=== PATIENT | female | born 1985 | race Caucasian/White ===

== ENCOUNTER 2018-02-22 18:46 | Emergency (ER) | payer MEDICAID ==
--- NOTE | 2018-02-22 18:43 | ER Report ---
History and Physical Time Seen By : 18:43 HPI/ROS CHIEF COMPLAINT: Altered mental status HISTORY OF PRESENT ILLNESS: 32-year-old female on chronic pain treatment with hydrocodone 10 mg tablets. She's taken 7 tablets today. Someone called for a welfare check. Patient was found to be hypoxic with a saturation of 50% and mildly altered mental status. On arrival here to the emergency room. She is alert and oriented 3. She voices no complaints. Her saturations are borderline on room air. REVIEW OF SYSTEMS: Respiratory: No cough, no dyspnea. Cardiovascular: No chest pain, no palpitations. Gastrointestinal: No vomiting, no abdominal pain. Musculoskeletal: No back pain. Allergies: Coded Allergies: tramadol (Verified Allergy, Unknown, 10/03/17) Uncoded Allergies: HAYFEVER CATS (Allergy, Mild, SINUS CONGESTION, 04/17/08) Home Meds Active Scripts Lorazepam (ATIVAN) 1 Mg Tablet, 1 MG PO Q4-6H Y for ANXIETY, #10 TAB 0 Refills Prov:HERRERA CASTANEDA MD 10/03/17 Sucralfate (CARAFATE) 1 Gm/10 Ml Oral.susp, 1 GM PO QID for 14 Days, #1 BOTTLE 0 Refills Prov:HERRERA CASTANEDA MD 10/03/17 Pantoprazole Sodium (PANTOPRAZOLE SODIUM) 40 Mg Tablet.dr, 40 MG PO BID, #60 TAB.SR 0 Refills Prov:HERRERA CASTANEDA MD 10/03/17 Promethazine Hcl (PROMETHAZINE HCL) 25 Mg Tablet, 25 MG PO Q8H Y for NAUSEA/ VOMITING, #20 TAB 0 Refills Prov:HERRERA CASTANEDA MD 10/03/17 Hydrocodone Bit/Acetaminophen (HYDROCODON-ACETAMINOPHEN 5-325) 1 Each Tablet, 1 EACH PO Q4H Y for PAIN, #15 TAB 0 Refills Prov:HERRERA CASTANEDA MD 10/03/17 Ondansetron (ZOFRAN ODT) 4 Mg Tab.rapdis, 4 MG PO TID Y for NAUSEA, #20 TAB 0 Refills TAKE 1 TABLET BY MOUTH EVERY 12 HOURS Prov:HERRERA CASTANEDA MD 12/12/13 Reported Medications Gabapentin (GABAPENTIN) 300 Mg Capsule, 300 MG PO TID, CAPSULE 10/03/17 Paroxetine Hcl (PAXIL) 20 Mg Tablet, 20 MG PO QDAY, TAB 10/03/17 Quetiapine Fumarate (SEROQUEL) 25 Mg Tablet, 25 MG PO 10/03/17 Reviewed Nurses Notes: Yes Old Medical Records Reviewed: Yes Hx Smoking: No Hx Substance Use Disorder: No Hx Alcohol Use: No Constitutional Vital Sign - Last 24 Hours 02/22/18 02/22/18 18:44 19:24 Temp 97.9 Pulse 132 88 Resp 20 18 B/P (MAP) 126/74 126/74 (91) Pulse Ox 100 94 O2 Delivery Nasal Cannula Room Air Physical Exam General Appearance: The patient is alert, has no immediate need for airway protection and no current signs of toxicity. Somnolent but alert and oriented 3, pulse ox 88-90% on room air HEENT: Pupils equal and round no injection. Oropharynx with dry mucous membranes Respiratory: Chest is non tender, lungs are clear to auscultation. Cardiac: regular rate and rhythm Gastrointestinal: Abdomen is soft and non tender, no masses, bowel sounds normal. Musculoskeletal: Neck: Neck is supple and non tender. Extremities have full range of motion and are non tender. Skin: No rashes or lesions. DIFFERENTIAL DIAGNOSIS: After history and physical exam differential diagnosis was considered for altered mental status including but not limited to hypoglycemia, infectious process, electrolyte abnormality, head injury, opiate pain medication abuse and intoxicants. Medical Decision Making ED Course/Re-evaluation ED Course Patient was admitted to an examination room. H&P was done. The differential diagnosis was considered. On clinical examination. Patient alert and oriented 3. She is somnolent. I suspect she is taking too many of her hydrocodone 10 mg tablets. Someone call for well for check. EMS noted that she was mildly hypoxic and brought her in for evaluation. She admits to using her 10 mg hydrocodone pain pills prescribed by her pain specialist in [place] nurse practitioner in excess of what she is prescribed. She is advised to cut her medication use by half. She is observed here in the emergency department for 60 minutes remained stable. She is advised to contact her pain specialist tomorrow Decision to Disposition Date: Feb 22, 2018 Decision to Disposition Time: 19:18 Depart Departure Latest Vital Signs Vital Signs Date Time Temp Pulse Resp B/P (MAP) Pulse Ox O2 Delivery O2 Flow Rate FiO2 02/22/18 19:24 88 18 126/74 (91) 94 Room Air 02/22/18 18:44 97.9 Impression: Primary Impression: Accidental overdose Additional Impression: Chronic pain syndrome Condition: Improved Disposition: HOME OR SELF-CARE Patient Instructions: Chronic Pain (ED) Additional Instructions: Contact your chronic pain specialist tomorrow morning Reduce your medication use by half Problem Qualifiers Primary Impression: Accidental overdose Encounter type: initial encounter Qualified Codes: T50.901A - Poisoning by unspecified drugs, medicaments and biological substances, accidental ( unintentional), initial encounter BIPIN ARITA DO Feb 22, 2018 18:43
[~2018-02-22 18:46] MED LIST changes: -ALB6.7R INH; -ALPR-429 PO; -ALPR-434 PO; -CIPR-214 PO; -DEXT5TAB PO; -DOXE25CA45 PO; -OXYC-870 PO; -PAROX40PT PO; -PRAZ1CAP26 PO; -QUET100T29 PO; -VENL150C61 PO; -VILA10TA PO
[2018-02-22 19:24] VITALS: BP 126/74
== END 2018-02-22 19:25 | disposition home or self-care (01) ==
LOC: ER 18:54
DX: T50.901A Poisoning by unspecified drugs, medicaments and biological substances, accidental (unintentional), initial encounter (principal); G89.4 Chronic pain syndrome
CPT/HCPCS: 99283

== ENCOUNTER → 2018-02-22 | Outpatient (CLI) | payer MEDICAID ==
[~2018-02-22] MED LIST: ALB6.7R INH; ALPR-429 PO; ALPR-434 PO; AZIT500T47 PO; BENZ-23 PO; CELE-1 PO; CEP500 PO; CIPR-214 PO; CIPR-344 PO; CYC10 PO; DAR100 PO; DEXT5TAB PO; DIA10 PO; DOCU50CA8 PO; DOXE25CA45 PO; ENO100I SC; ENOX80DI8 SQ; FAMO-1 PO; FERR325C2 PO; GABA-549 PO; HYD2 PO; HYDR2TAB42 PO; HYDR2TAB74 PO; IBU600 PO; IBU800 PO; KET10 PO; LEVO250T37 PO; LOR10/325 PO; LOR5 PO; LOR5/325 PO; LORA-1456 PO; MECL25TA27 PO; MED150I IM; MEP50 PO; MEPE50TA29 PO; NIA500 PO; NO ROUTINE MEDS; NO RTN MEDS; ONDA4TAB PO; OXYC-870 PO; PANT40TA65 PO; PARO-243 PO; PAROX40PT PO; PER PO; PHENA200 PO; PHENYLEPHRINE PO; PRAZ1CAP26 PO; PRED20TA6 PO; PRO25 PO; PROM-110 PO; PROMETHAZINE PO; QUET100T29 PO; QUET25TA30 PO; SCOT TD; SUCR1ORA17 PO; TOLT4CAP13 PO; VENL150C61 PO; VILA10TA PO; WAR5 PO
== END ==
LOC: AMB 18:20
PROVIDERS: ATTEND Nurse Practitioner
DX: R41.82 Altered mental status, unspecified (principal); F11.129 Opioid abuse with intoxication, unspecified
CPT/HCPCS: A0425; A0429

== ENCOUNTER 2018-02-23 19:30 | Inpatient (IN) | payer MEDICAID ==
[~2018-02-23] VITALS: Ht 157.5 cm; Wt 61.5 kg
[~2018-02-23 19:30] MED LIST changes: -ALB6.7R INH; -ALPR-429 PO; -ALPR-434 PO; -CIPR-214 PO; -DEXT5TAB PO; -DOXE25CA45 PO; -OXYC-870 PO; -PAROX40PT PO; -PRAZ1CAP26 PO; -QUET100T29 PO; -VENL150C61 PO; -VILA10TA PO
--- NOTE | 2018-02-23 19:38 | ER Report ---
History and Physical Time Seen By : 19:37 HPI/ROS CHIEF COMPLAINT: Found unresponsive, opiate overdose HISTORY OF PRESENT ILLNESS: 32-year-old female brought in by EMS from home found unresponsive with hydrocodone 10 mg tablets in her mouth partially dissolved by family members who called 911 She was given formula grams of Narcan and immediately woke up and began to respond appropriately. Patient was seen in the ER yesterday for hypoxia and altered mental status from taking 810 mg hydrocodone's mcc through the day. She was observed yesterday for an hour in the emergency department with stable vital signs, was alert. She was advised to cut her medication use by half and contact her pain specialist today. Today, her father called for well for check and she was found unresponsive. Patient was placed on emergency longterm by law enforcement for potential attempted suicide, overdose gesture. Patient's review of [place] prescription monitoring website shows patient received oxycodone 08/15/2025 #60 tablets on 02/08/18 Tamara Roy lavern and then again 60 tablets of oxycodone prescribed by LILLY Sanders pain consult minutes of [facility] in [place], [place]. REVIEW OF SYSTEMS: Respiratory: No cough, no dyspnea. Cardiovascular: No chest pain, no palpitations. Gastrointestinal: No vomiting, no abdominal pain. Musculoskeletal: No back pain. Allergies: Coded Allergies: tramadol (Verified Allergy, Unknown, 02/23/18) Uncoded Allergies: HAYFEVER CATS (Allergy, Mild, SINUS CONGESTION, 04/17/08) Home Meds Active Scripts Sucralfate (CARAFATE) 1 Gm/10 Ml Oral.susp, 1 GM PO QID for 14 Days, #1 BOTTLE 0 Refills Prov:HERRERA CASTANEDA MD 10/03/17 Pantoprazole Sodium (PANTOPRAZOLE SODIUM) 40 Mg Tablet.dr, 40 MG PO BID, #60 TAB.SR 0 Refills Prov:HERRERA CASTANEDA MD 10/03/17 Promethazine Hcl (PROMETHAZINE HCL) 25 Mg Tablet, 25 MG PO Q8H Y for NAUSEA/ VOMITING, #20 TAB 0 Refills Prov:HERRERA CASTANEDA MD 10/03/17 Reported Medications Albuterol Sulfate (PROVENTIL HFA) 6.7 Gm Inh, 1-2 PUFF INH 3-4XD Y for shortness of breath, INH 02/24/18 Paroxetine Hcl (PAXIL) 40 Mg Tablet, 40 MG PO QHS 02/24/18 Doxepin Hcl (DOXEPIN HCL) 25 Mg Capsule, 25 MG PO QHS, CAPSULE 02/24/18 Vilazodone Hydrochloride (VIIBRYD) 10 Mg Tablet, 10 MG PO QAM 02/24/18 Oxycodone Hcl/Acetaminophen (PERCOCET 10-325 MG TABLET) 1 Each Tablet, 0.5 EACH PO QID, TAB 02/24/18 Gabapentin (GABAPENTIN) 300 Mg Capsule, 300 MG PO TID, CAPSULE 10/03/17 Discontinued Reported Medications Alprazolam (XANAX) 1 Mg Tablet, 1 TAB PO BID, TAB 02/24/18 Paroxetine Hcl (PAXIL) 20 Mg Tablet, 40 MG PO QDAY, TAB 02/24/18 Prazosin Hcl (PRAZOSIN HCL) 1 Mg Capsule, 1 MG PO QHS, CAPSULE 02/24/18 Alprazolam (XANAX) 0.5 Mg Tablet, 2 TAB PO BID, TAB 02/24/18 Amphet Asp/Amphet/D-Amphet (AMPHETAMINE SALTS 5 MG TAB) 5 Mg Tablet, 5 MG PO BID 02/24/18 Quetiapine Fumarate (SEROQUEL) 100 Mg Tablet, 200 MG PO QHS 02/24/18 Paroxetine Hcl (PAXIL) 20 Mg Tablet, 20 MG PO QDAY, TAB 10/03/17 Quetiapine Fumarate (SEROQUEL) 25 Mg Tablet, 25 MG PO 10/03/17 Discontinued Scripts Lorazepam (ATIVAN) 1 Mg Tablet, 1 MG PO Q4-6H Y for ANXIETY, #10 TAB 0 Refills Prov:HERRERA CASTANEDA MD 10/03/17 Hydrocodone Bit/Acetaminophen (HYDROCODON-ACETAMINOPHEN 5-325) 1 Each Tablet, 1 EACH PO Q4H Y for PAIN, #15 TAB 0 Refills Prov:HERRERA CASTANEDA MD 10/03/17 Ondansetron (ZOFRAN ODT) 4 Mg Tab.rapdis, 4 MG PO TID Y for NAUSEA, #20 TAB 0 Refills TAKE 1 TABLET BY MOUTH EVERY 12 HOURS Prov:HERRERA CASTANEDA MD 12/12/13 Past Medical/Surgical History History of gastric bypass, cholecystectomy, appendectomy, enterectomy for small bowel obstruction, pulmonary embolism. 2011 with pulmonary infarction Reviewed Nurses Notes: Yes Old Medical Records Reviewed: Yes Hx Smoking: No Hx Substance Use Disorder: No Hx Alcohol Use: No Constitutional Vital Sign - Last 24 Hours 02/23/18 02/23/18 02/23/18 02/23/18 19:36 19:45 19:49 20:00 Temp 97.9 Pulse 130 113 109 Resp 12 B/P (MAP) 129/90 124/91 (102) 123/73 (90) Pulse Ox 98 97 97 02/23/18 02/23/18 02/23/18 02/23/18 20:30 21:00 21:15 21:20 Pulse 95 114 112 110 Pulse Ox 97 94 93 96 Physical Exam Vital signs stable, afebrile, pulse ox normal. After Narcan 4 mg IV General Appearance: The patient is alert, has no immediate need for airway protection and no current signs of toxicity. Eyes: Pupils equal and round no injection. Respiratory: Chest is non tender, lungs are clear to auscultation. Cardiac: regular rate and rhythm Gastrointestinal: Abdomen is soft and non tender, no masses, bowel sounds normal. Musculoskeletal: Neck: Neck is supple and non tender. Extremities have full range of motion and are non tender. Skin: No rashes or lesions. Neuro:Alert and oriented 3, cranial 2 through 12 intact motor 5/5 all groups DIFFERENTIAL DIAGNOSIS: After history and physical exam differential diagnosis was considered for depression including functional and major depression, situational depression, medication side effect, drugs and alcohol abuse. Medical Decision Making Data Points Result Diagram: 02/24/18 0509 02/24/18 0509 Laboratory Hematology Test 02/23/18 19:27 02/23/18 20:17 Magnesium Level 1.9 mg/dl (1.7-2.2) Salicylates Level < 10 mg/L Salicylate Last Dose Date unk Serum Alcohol < 10 mg/dl Urine Color Yellow Urine Clarity Cloudy Urine pH 5.0 pH (4.8-9.5) Urine Specific Bennett 1.025 Urine Protein Negative mg/dL (NEGATIVE) Urine Glucose (UA) Negative mg/dL (NEGATIVE) Urine Ketones Trace mg/dL (NEGATIVE) Urine Blood Negative (NEGATIVE) Urine Nitrite Negative (NEGATIVE) Urine Bilirubin Negative (NEGATIVE) Urine Urobilinogen Negative mg/dL (0.2-1.9) Urine Leukocyte Esterase Moderate (NEGATIVE) Urine RBC 5 /HPF (0-2/HPF) Urine WBC 35 /HPF (0-5/HPF) Urine Squamous Epithelial Cells Many /LPF (</=FEW) Urine Transitional Epithelial Cells Moderate /LPF (NONE-FEW) Urine Renal Epithelial Cells Few /LPF (NONE-FEW) Urine Bacteria Few /HPF (NONE-FEW) Urine Mucus Few /HPF (NONE-FEW) Urine HCG, Qualitative Negative (NEGATIVE) Urine Opiates Screen Positive Urine Barbiturates Screen Negative Ur Tricyclic Antidepressants Screen Positive Urine Phencyclidine Screen Negative Urine Amphetamines Screen Negative Urine Benzodiazepines Screen Negative Urine Cocaine Screen Negative Urine Cannabinoids Screen Negative Chemistry Test 02/23/18 19:27 02/23/18 20:17 Magnesium Level 1.9 mg/dl (1.7-2.2) Salicylates Level < 10 mg/L Salicylate Last Dose Date unk Serum Alcohol < 10 mg/dl Urine Color Yellow Urine Clarity Cloudy Urine pH 5.0 pH (4.8-9.5) Urine Specific Bennett 1.025 Urine Protein Negative mg/dL (NEGATIVE) Urine Glucose (UA) Negative mg/dL (NEGATIVE) Urine Ketones Trace mg/dL (NEGATIVE) Urine Blood Negative (NEGATIVE) Urine Nitrite Negative (NEGATIVE) Urine Bilirubin Negative (NEGATIVE) Urine Urobilinogen Negative mg/dL (0.2-1.9) Urine Leukocyte Esterase Moderate (NEGATIVE) Urine RBC 5 /HPF (0-2/HPF) Urine WBC 35 /HPF (0-5/HPF) Urine Squamous Epithelial Cells Many /LPF (</=FEW) Urine Transitional Epithelial Cells Moderate /LPF (NONE-FEW) Urine Renal Epithelial Cells Few /LPF (NONE-FEW) Urine Bacteria Few /HPF (NONE-FEW) Urine Mucus Few /HPF (NONE-FEW) Urine HCG, Qualitative Negative (NEGATIVE) Urine Opiates Screen Positive Urine Barbiturates Screen Negative Ur Tricyclic Antidepressants Screen Positive Urine Phencyclidine Screen Negative Urine Amphetamines Screen Negative Urine Benzodiazepines Screen Negative Urine Cocaine Screen Negative Urine Cannabinoids Screen Negative Toxicology Test 02/23/18 19:27 02/23/18 20:17 Salicylates Level < 10 mg/L Salicylate Last Dose Date unk Serum Alcohol < 10 mg/dl Urine Opiates Screen Positive Urine Barbiturates Screen Negative Ur Tricyclic Antidepressants Screen Positive Urine Phencyclidine Screen Negative Urine Amphetamines Screen Negative Urine Benzodiazepines Screen Negative Urine Cocaine Screen Negative Urine Cannabinoids Screen Negative Urinalysis Test 02/23/18 20:17 Urine Color Yellow Urine Clarity Cloudy Urine pH 5.0 pH (4.8-9.5) Urine Specific Bennett 1.025 Urine Protein Negative mg/dL (NEGATIVE) Urine Glucose (UA) Negative mg/dL (NEGATIVE) Urine Ketones Trace mg/dL (NEGATIVE) Urine Blood Negative (NEGATIVE) Urine Nitrite Negative (NEGATIVE) Urine Bilirubin Negative (NEGATIVE) Urine Urobilinogen Negative mg/dL (0.2-1.9) Urine Leukocyte Esterase Moderate (NEGATIVE) Urine RBC 5 /HPF (0-2/HPF) Urine WBC 35 /HPF (0-5/HPF) Urine Squamous Epithelial Cells Many /LPF (</=FEW) Urine Transitional Epithelial Cells Moderate /LPF (NONE-FEW) Urine Renal Epithelial Cells Few /LPF (NONE-FEW) Urine Bacteria Few /HPF (NONE-FEW) Urine Mucus Few /HPF (NONE-FEW) Urine HCG, Qualitative Negative (NEGATIVE) EKG/Imaging EKG Interpretation 12 lead EK Rhythm: Sinus tachycardia [address] [place]: normal QRS: normal ST segments: normal ED Course/Re-evaluation Clinical Indication for ER IV: Hydration, IV Access ED Course Patient was admitted to an examination room. H&P was done. The differential diagnoses was considered. Patient found unresponsive with undissolved pills in her mouth which were swept out by police sergeant. As arrived on scene and administered Narcan 4 mg IV with prompt improvement of her mental status. Patient was alert and oriented. On arrival to the ER. Shortly thereafter, her mental status began to deteriorate. She required 2 more milligrams of Narcan IV to improve her mental status. Diagnostic studies were sent off. Tox screen is positive for opiates and tricyclics. 02/23/2018 9:02:14 pm case discussed with Dr. Pete Swann for admission to the hospital for continued monitoring of her deteriorating mental status. Opiate overdose requiring repeated Narcan to keep awake Decision to Disposition Date: Feb 23, 2018 Decision to Disposition Time: 21:02 Critical Care Time I spent a total of 45 minutes of critical care time in obtaining history, performing a physical exam, bedside monitoring of interventions, collecting and interpreting tests and discussion with consultants but not including time spent performing procedures. Depart Departure Latest Vital Signs Vital Signs Date Time Temp Pulse Resp B/P (MAP) Pulse Ox O2 Delivery O2 Flow Rate FiO2 02/23/18 21:20 110 96 02/23/18 20:00 123/73 (90) 02/23/18 19:36 97.9 12 Impression: Primary Impression: Accidental overdose Additional Impressions: Opiate dependence History of gastric bypass Condition: Improved Disposition: Admitted from ER Problem Qualifiers Primary Impression: Accidental overdose Encounter type: initial encounter Qualified Codes: T50.901A - Poisoning by unspecified drugs, medicaments and biological substances, accidental ( unintentional), initial encounter Additional Impressions: Opiate dependence Substance use status: uncomplicated Qualified Codes: F11.20 - Opioid dependence, uncomplicated BIPIN ARITA DO Feb 23, 2018 19:38
[2018-02-23] MEDS ORDERED: NS(*) 0.9% 1000 ML BAG 1,000 ML IV ONE (19:44)
[2018-02-23 19:50] LABS: PLATELET COUNT, AUTOMATED 391 K/uL (150-450)
[2018-02-23] MEDS ORDERED: EMS NS 0.9%(*) 1000 ML BAG 1,000 ML IV ONE (19:50)
[2018-02-23] MEDS ORDERED: NALOXONE HCL 2 MG/2 ML SYR IVP ONE (20:35)
[2018-02-23] MEDS ORDERED: NAPROXEN 500 MG TAB PO PRN (22:40)
[2018-02-23] MEDS ORDERED: NALOXONE HCL 2 MG/2 ML SYR IVP PRN (22:40)
[2018-02-23] MEDS ORDERED: ACETAMINOPHEN 500 MG TAB PO PRN (22:40)
[2018-02-23] MEDS ORDERED: MELATONIN 3 MG TAB PO PRN (22:40)
[2018-02-23] MEDS ORDERED: KCL 2 MEQ/ML 20 MEQ/10 ML VIAL 20 MEQ in D5 1/2 NS(*) 1000 ML BAG 1,000 ML IV PRN (22:40)
[2018-02-23] MEDS ORDERED: KCL/D1/2NS 20 MEQ 1000 ML 1,000 ML IV SCH (23:00)
--- NOTE | 2018-02-23 23:14 | History & Physical ---
History of Present Illness History of Present Illness 32yo female with a h/o chronic pain who was brought to the ER for unresponsiveness and concern for overdose. The patient is not able to give much history due to somnolence and there is no family or friends present, so the history is mostly from the ER provider. The patient was brought to the ER last night after a well fare check where she was found to have AMS and mild hypoxia. She cleared in the ER and was told to cut her narcotic pain medication in half. Tonight, she was found unresponsive with tablets in her mouth, which potentially were hydrocodone. She was given Narcan and she immediately woke up. Law enforcement placed her on emergency long-term for potential intentional overdose. The patient denies to me any intent to hurt herself and denies any other ingestions. She did admit to taking more hydrocodone throughout the day because of increased chronic pain. Upon review of her recent prescriptions through [place]'s prescription review, she received #60 pills of Percocet 10/325 from Cecile Zhao on 02/12 and the same amount from Porfirio Feliciano on 02/20 (her pain specialist), per the ER physician. She reports feeling a bit cold, some nausea and her chronic pelvis pain. In the ER, she received another dose of Narcan for increasing somnolence which woke her up. History Problems: (1) Pain, chronic Status: Chronic (2) Depression Status: Chronic Home Meds Active Scripts Lorazepam (ATIVAN) 1 Mg Tablet, 1 MG PO Q4-6H Y for ANXIETY, #10 TAB 0 Refills Prov:HERRERA CASTANEDA MD 10/03/17 Sucralfate (CARAFATE) 1 Gm/10 Ml Oral.susp, 1 GM PO QID for 14 Days, #1 BOTTLE 0 Refills Prov:HERRERA CASTANEDA MD 10/03/17 Pantoprazole Sodium (PANTOPRAZOLE SODIUM) 40 Mg Tablet.dr, 40 MG PO BID, #60 TAB.SR 0 Refills Prov:HERRERA CASTANEDA MD 10/03/17 Promethazine Hcl (PROMETHAZINE HCL) 25 Mg Tablet, 25 MG PO Q8H Y for NAUSEA/ VOMITING, #20 TAB 0 Refills Prov:HERRERA CASTANEDA MD 10/03/17 Hydrocodone Bit/Acetaminophen (HYDROCODON-ACETAMINOPHEN 5-325) 1 Each Tablet, 1 EACH PO Q4H Y for PAIN, #15 TAB 0 Refills Prov:HERRERA CASTANEDA MD 10/03/17 Reported Medications Gabapentin (GABAPENTIN) 300 Mg Capsule, 300 MG PO TID, CAPSULE 10/03/17 Paroxetine Hcl (PAXIL) 20 Mg Tablet, 20 MG PO QDAY, TAB 10/03/17 Quetiapine Fumarate (SEROQUEL) 25 Mg Tablet, 25 MG PO 10/03/17 Discontinued Scripts Ondansetron (ZOFRAN ODT) 4 Mg Tab.rapdis, 4 MG PO TID Y for NAUSEA, #20 TAB 0 Refills TAKE 1 TABLET BY MOUTH EVERY 12 HOURS Prov:HERRERA CASTANEDA MD 12/12/13 Allergies: Coded Allergies: tramadol (Verified Allergy, Unknown, 02/23/18) Uncoded Allergies: HAYFEVER CATS (Allergy, Mild, SINUS CONGESTION, 04/17/08) Hx Smoking: No Hx Alcohol Use: No Hx Substance Use Disorder: No Review of Systems All Systems Reviewed/Normal: Yes, Except as Noted Exam Vital Signs Vital Signs Date Time Temp Pulse Resp B/P (MAP) Pulse Ox O2 Delivery O2 Flow Rate FiO2 02/23/18 22:20 96 91 02/23/18 20:00 123/73 (90) 02/23/18 19:36 97.9 12 General Appearance: Other (Sleepy, but awakens easily. Comfortable.) Neuro: Other (She answers some questions appropriately. She knows where she is , but not really why she is here. She falls back asleep quickly.) ENT: Moist Mucous Membranes Cardiovascular: Regular Rate and Rhythm Respiratory: Clear to Auscultation GI: Abd Soft and Non-Tender : No CVA Tenderness Extremities: No Edema Integumentary: No Jaundice, No Cyanosis Medical Decision Making Data Points Result Diagram: 02/23/18192602/23/181926 Item Value Date Time Hemoglobin 14.8 g/dL 10/03/17829 Hemoglobin 11.4 g/dL L 02/23/181926 White Blood Count 15.7 k/uL H 10/03/1730 White Blood Count 8.4 k/uL 02/23/181926 Platelet Count 391 K/uL 02/23/181926 Platelet Count 553 K/uL H 10/03/17 0830 Urine RBC 5 /HPF 02/23/182016 Urine WBC 35 /HPF 02/23/182016 Urine Squamous Epithelial Cells Many /LPF H 02/23/182016 Urine Transitional Epithelial Cells Moderate /LPF H 02/23/182016 Urine Renal Epithelial Cells Few /LPF 02/23/182016 Urine Leukocyte Esterase Moderate H 02/23/182016 Ur Tricyclic Antidepressants Screen Positive 02/23/182016 Urine Opiates Screen Positive 02/23/182016 Serum Alcohol < 10 mg/dl 02/23/181926 Acetaminophen Level 39 ug/ml 02/23/181926 Salicylates Level < 10 mg/L 02/23/181926 Assessment and Plan Problems: (1) Accidental overdose Status: Acute Assessment & Plan: She was found unresponsive with pills in her mouth, that were reportedly hydrocodone. She has received 2 doses of Narcan with good result. She has been emergency detained by law enforcement for concern of intentional overdose. The patient is somnolent, but will awaken to voice. She denies any intent to hurt herself or any other ingestion. She does admit to taking more hydrocodone today for increased pain. Upon review of her recent prescriptions through [place]'s prescription review, she received #60 pills of Percocet 10/325 from Cecile Zhao on 02/12 and the same amount from Porfirio Feliciano on 02/20 (her pain specialist), per the ER physician. All her medications have been held. The first Tylenol level was 39. She also had a positive TCA and opiates on the urine test. Her chemistry profile is normal without evidence of acidosis or AG. Will recheck a Tylenol level and CMP and get an EKG. She will be watched in the ICU. She will get prn Narcan. (2) Depression Status: Chronic Assessment & Plan: Unclear what she is taking. Will need to review with her when more awake. (3) Pain, chronic Status: Chronic Assessment & Plan: As above. Copies to: PORFIRIO FELICIANO PA-C; CECILE ZHAO [employer] SPECTROMET[employer] MANAGER-C Venous Thromboembolism Antithrombotics Is Pt On Any Antithrombotics?: No Exam Sepsis Risk: No Definite Risk Problem Qualifiers (1) Accidental overdose: Encounter type: initial encounter Qualified Codes: T50.901A - Poisoning by unspecified drugs, medicaments and biological substances, accidental ( unintentional), initial encounter CALEB GUERRIER MD Feb 23, 2018 23:14
--- NOTE | 2018-02-23 23:27 | EKG ---
FACILITY: [facility] PATIENT NAME: FAY BAXTER : [id number] MR: [id number] V: [id number] EXAM DATE: ORDERING PHYSICIAN: CALEB GUERRIER TECHNOLOGIST: Jonny Barillas Reason : Blood Pressure : / mmHG Vent. Rate : 102 BPM Atrial Rate : 102 BPM P-R Int : 120 ms QRS Dur : 080 ms QT Int : 356 ms P-R-T Axes : 060 050 032 degrees QTc Int : 463 ms Sinus tachycardia T inversion consistent with septal ischemia vs normal variant Compared to previous, now with septal T inversion Confirmed by CALEB GUERRIER ([id number]) on 02/24/2018 12:01:29 AM Referred By: Confirmed By:CALEB GUERRIER
[2018-02-23 23:31] VITALS: BP 131/81
[2018-02-24] VITALS (22 sets, daily range): BP systolic 110–152; BP diastolic 66–106
[2018-02-24 05:15] LABS: PLATELET COUNT, AUTOMATED 319 K/uL (150-450)
[2018-02-24] MEDS ORDERED: OXYC-870 PO (08:00)
[2018-02-24] MEDS ORDERED: QUET100T29 PO (08:09)
[2018-02-24] MEDS ORDERED: PARO-243 PO (08:09)
[2018-02-24] MEDS ORDERED: ALPR-429 PO (08:09)
[2018-02-24] MEDS ORDERED: DOXE25CA45 PO (08:09)
[2018-02-24] MEDS ORDERED: PRAZ1CAP26 PO (08:09)
[2018-02-24] MEDS ORDERED: DEXT5TAB PO (08:09)
[2018-02-24] MEDS ORDERED: VILA10TA PO (08:09)
[2018-02-24] MEDS ORDERED: PAROX40PT PO (08:12)
[2018-02-24] MEDS ORDERED: ALPR-434 PO (08:12)
[2018-02-24] MEDS ORDERED: ALB6.7R INH (08:19)
[2018-02-24] MEDS ORDERED: ALBUTEROL SULFATE 90 MCG/ACT 8.5 GM HNH INH PRN (08:40)
[2018-02-24] MEDS ORDERED: INFLUENZA VIRUS VAC 0.5 ML SYR IM ONLY ONE (10:00)
--- NOTE | 2018-02-24 10:10 | Hospitalist Depart ---
Discharge Summary Reason for Hosp/Final Diag: (1) Accidental overdose Status: Acute Hospital Course & Plan: She was found unresponsive with pills in her mouth, that were reportedly hydrocodone. She received 2 doses of Narcan with good result. She has been emergency detained by law enforcement for concern of intentional overdose. She is alert and oriented this morning. She will transfer to psychiatry for ongoing treatment. (2) Depression Status: Chronic Hospital Course & Plan: She does have multiple psychotropic medications on her profile. We will defer any changes to psychiatry. (3) Pain, chronic Status: Chronic Hospital Course & Plan: As above. Departure Latest Vital Signs Vital Signs 02/24/18 02/24/18 02/24/18 07:00 09:00 09:51 Temp 99.0 Pulse 112 Resp 16 B/P (MAP) 131/81 (98) Pulse Ox 93 O2 Delivery Room Air O2 Flow Rate 1.0 Weight (Pounds): 135 Weight (Ounces): 9.0 Result Diagram: 02/24/18 0509 02/24/18 0509 Condition: Improved Discharge: [facility] Discharge Instructions Home Meds Active Scripts Sucralfate (CARAFATE) 1 Gm/10 Ml Oral.susp, 1 GM PO QID for 14 Days, #1 BOTTLE 0 Refills Prov:HERRERA CASTANEDA MD 10/03/17 Pantoprazole Sodium (PANTOPRAZOLE SODIUM) 40 Mg Tablet.dr, 40 MG PO BID, #60 TAB.SR 0 Refills Prov:HERRERA CASTANEDA MD 10/03/17 Promethazine Hcl (PROMETHAZINE HCL) 25 Mg Tablet, 25 MG PO Q8H Y for NAUSEA/ VOMITING, #20 TAB 0 Refills Prov:HERRERA CASTANEDA MD 10/03/17 Reported Medications Albuterol Sulfate (PROVENTIL HFA) 6.7 Gm Inh, 1-2 PUFF INH 3-4XD Y for shortness of breath, INH 02/24/18 Paroxetine Hcl (PAXIL) 40 Mg Tablet, 40 MG PO QHS 02/24/18 Alprazolam (XANAX) 1 Mg Tablet, 1 TAB PO BID, TAB 02/24/18 Doxepin Hcl (DOXEPIN HCL) 25 Mg Capsule, 25 MG PO QHS, CAPSULE 02/24/18 Prazosin Hcl (PRAZOSIN HCL) 1 Mg Capsule, 1 MG PO QHS, CAPSULE 02/24/18 Vilazodone Hydrochloride (VIIBRYD) 10 Mg Tablet, 10 MG PO QAM 02/24/18 Amphet Asp/Amphet/D-Amphet (AMPHETAMINE SALTS 5 MG TAB) 5 Mg Tablet, 5 MG PO BID 02/24/18 Quetiapine Fumarate (SEROQUEL) 100 Mg Tablet, 200 MG PO QHS 02/24/18 Oxycodone Hcl/Acetaminophen (PERCOCET 10-325 MG TABLET) 1 Each Tablet, 1 EACH PO Q6H, TAB 02/24/18 Gabapentin (GABAPENTIN) 300 Mg Capsule, 300 MG PO TID, CAPSULE 10/03/17 Discontinued Reported Medications Paroxetine Hcl (PAXIL) 20 Mg Tablet, 40 MG PO QDAY, TAB 02/24/18 Alprazolam (XANAX) 0.5 Mg Tablet, 2 TAB PO BID, TAB 02/24/18 Paroxetine Hcl (PAXIL) 20 Mg Tablet, 20 MG PO QDAY, TAB 10/03/17 Quetiapine Fumarate (SEROQUEL) 25 Mg Tablet, 25 MG PO 10/03/17 Discontinued Scripts Lorazepam (ATIVAN) 1 Mg Tablet, 1 MG PO Q4-6H Y for ANXIETY, #10 TAB 0 Refills Prov:HERRERA CASTANEDA MD 10/03/17 Hydrocodone Bit/Acetaminophen (HYDROCODON-ACETAMINOPHEN 5-325) 1 Each Tablet, 1 EACH PO Q4H Y for PAIN, #15 TAB 0 Refills Prov:HERRERA CASTANEDA MD 10/03/17 Ondansetron (ZOFRAN ODT) 4 Mg Tab.rapdis, 4 MG PO TID Y for NAUSEA, #20 TAB 0 Refills TAKE 1 TABLET BY MOUTH EVERY 12 HOURS Prov:HERRERA CASTANEDA MD 12/12/13 Diet: Regular Activity: As Tolerated Venous Thromboembolism Antithrombotics Is Pt On Any Antithrombotics?: No Problem Qualifiers (1) Accidental overdose: Encounter type: initial encounter Qualified Codes: T50.901A - Poisoning by unspecified drugs, medicaments and biological substances, accidental ( unintentional), initial encounter TEE NOBLE DO Feb 24, 2018 10:10
== END 2018-02-24 11:03 | DRG 918 ==
LOC: ER 19:43 → ICU 21:34
PROVIDERS: ADMIT Internal Medicine; ATTEND Internal Medicine
DX: T40.2X1A Poisoning by other opioids, accidental (unintentional), initial encounter (principal); F11.20 Opioid dependence, uncomplicated; G89.29 Other chronic pain; F32.9 Major depressive disorder, single episode, unspecified; Y92.009 Unspecified place in unspecified non-institutional (private) residence as the place of occurrence of the external cause; Y99.8 Other external cause status; Z88.8 Allergy status to other drugs, medicaments and biological substances; Z90.49 Acquired absence of other specified parts of digestive tract
CPT/HCPCS: 36415; 80305; 80320; 80329; 81001; 81025; 82040; 82247; 82310; 82374; 82435; 82565; 82947; 83735; 84075; 84132; 84155; 84295; 84443; 84450; 84460; 84520; 85025; 93005; 94640; 99283; 99285; 99291; J2310; J3480

== ENCOUNTER → 2018-02-23 | Outpatient (CLI) | payer MEDICAID ==
[~2018-02-23] MED LIST changes: +ALB6.7R INH; +ALPR-429 PO; +ALPR-434 PO; +CIPR-214 PO; +DEXT5TAB PO; +DOXE25CA45 PO; +OXYC-870 PO; +PAROX40PT PO; +PRAZ1CAP26 PO; +QUET100T29 PO; +VENL150C61 PO; +VILA10TA PO
== END ==
LOC: AMB 19:17
PROVIDERS: ATTEND Nurse Practitioner
DX: T40.2X4A Poisoning by other opioids, undetermined, initial encounter (principal); R06.00 Dyspnea, unspecified
CPT/HCPCS: A0425; A0427

== ENCOUNTER 2018-02-24 11:03 | Inpatient (IN) | payer MEDICAID ==
[~2018-02-24] VITALS: Ht 157.5 cm; Wt 63.5 kg
[~2018-02-24 11:03] MED LIST changes: +ALB6.7R INH; +ALPR-429 PO; +ALPR-434 PO; +DEXT5TAB PO; +DOXE25CA45 PO; +OXYC-870 PO; +PAROX40PT PO; +PRAZ1CAP26 PO; +QUET100T29 PO; +VILA10TA PO
[2018-02-24 11:25] VITALS: BP 120/72
[2018-02-24 13:29] LABS: PLATELET COUNT, AUTOMATED 375 K/uL (150-450)
--- NOTE | 2018-02-24 14:27 | BHS - Psychiatric Evaluation ---
ER - Title 25 MHE Evaluation Title 25 Evaluation Patient Detained By: Law Enforcement Referral Source: Law Enforcement Date Patient Detained: Feb 23, 2018 Time Patient Detained: 19:30 Date Fci Expires: Feb 28, 2018 Time Fci Expires: 19:30 Legal Status: Police Hold: No Legal Status: Residence: [facility] Resident, State Resident Assessment Data Provided By: Other Source ([facility] professionals) HPI/ROS: Per Hospitalist, Dr. Pete Swann, "32yo female with a h/o chronic pain who was brought to the ER for unresponsiveness and concern for overdose. The patient is not able to give much history due to somnolence and there is no family or friends present, so the history is mostly from the ER provider. The patient was brought to the ER last night after a welfare check where she was found to have AMS and mild hypoxia. She cleared in the ER and was told to cut her narcotic pain medication in half. Tonight, she was found unresponsive with tablets in her mouth, which potentially were hydrocodone. She was given Narcan and she immediately woke up. Law enforcement placed her on emergency halfway for potential intentional overdose. The patient denies to me any intent to hurt herself and denies any other ingestions. She did admit to taking more hydrocodone throughout the day because of increased chronic pain. Upon review of her recent prescriptions through [place]'s prescription review, she received #60 pills of Percocet 10/325 from Cecile Pinon on 02/12 and the same amount from Porfirio Romero on 02/20 (her pain specialist), per the ER physician. She reports feeling a bit cold, some nausea and her chronic pelvis pain." Admission to care in ICU for continued monitoring of her deteriorating status. Opiate overdose requiring repeated Narcan to keep awake Admit due to SI or Attempt: No (Patient denies any suicidal thoughts.) Suicide Plan: No Plan Alcohol or Drugs Involved: Yes (Opiate overdose) Is Patient Info Reliable: Yes Is Collateral Info Reliable: Yes Current Home Psych Meds: Patient says her clinical practitioner, Stephanie Joseph,has prescribed Seroquel, Xanax, and a PTSD medication (? Patient does not know what medication this could be). Patient also takes Percocet and sees pain management specialists in [place]. Mental Status Exam General Appearance: Good Eye Contact, Good Interaction, Tearful Speech: Clear, Spontaneous, Normal Rate, Normal Rhythm, Normal Volume, Normal Tone Mood: Dysthmic/Depressed (Patient cries, affect is quite sad.) Affect: Sad (Cries when she acknowledges she has had two life threatening medical overdoses this week.) Thought Process: Goal Directed (Wants to return to her home as soon as possible.) Thought Content: Suicidal Ideation (Denies) Memory: Immediate, Recent Insight Judgment: Poor Hallucinations: Denies Delusions: Denies Current Risk & History Current Dangerous Risk Assessm: Current Suicide Ideation (Denies), Protective Factors (Says her sons are very important to her, and both are doing well in school, she says.) Past Dangerous Risk Assessm: Suicide Ideation-last 6mo (Patient denies any suicidal ideation, ever.) Prior Alcohol/Drug Abuse Patient loulou shares that patient has begun to take more medication than prescribed in a developing pattern of misuse. Previous Suicide Attempt: No Previous Attempt Previous Psychiatric Illness: Yes (Patient acknowledges Post Traumatic Stress Disorder related to finding her father 15 years ago.) Previous Diagnosis/Treatment: PTSD Previous Psychiatric Treatment: Yes (Sees Stephanie Joseph at [facility] for depression and PTSD, patient says.) Risk Assessment & Disposition Evaluated Risk Assessment: Risk is rated as high. Patient had two opiate overdoses this week requiring the administration of Narcan within the Emergency Room both times. Patient reports complicated grief and loss as well as past trauma that she "has not dealt with. " Patient says recently she has been upset at night, and loulou is concerned about her. She says he blames her overdoses on himself. Patient stressors and resources seem to be mismatched at this time. Patient needing professional assistance to stabilize, and obtain education about very dangerous overdoses this week that required Narcan each time to save her life. Impression: Primary Impression: Depression Additional Impression: Opiate dependence Meets Mental Illness Req.: Yes Meets Dangerousness Req.: Yes Emergency Fci to be: Upheld Decision Comment: Patient is currently assessed as unstable. It is recommended she stay at [facility]/ [facility] the full extent of her 72 hour hold, or until she stabilizes. Date of Decision: Feb 24, 2018 Time of Decision: 13:22 Patient is Medically Stable at: Yes Disposition: [facility] (Transferred from ICU this morning) Problem Qualifiers ALIX LEI LPC Feb 24, 2018 14:27
[2018-02-24] MEDS: ONDANSETRON 4 MG ODT TABDP SL PRN ×2 (14:46→21:50)
[2018-02-24] MEDS ORDERED: VENLAFAXINE XR 37.5 MG CAPCR PO ONE (14:55)
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
[2018-02-24] MEDS: CIPROFLOXACIN 500 MG TAB PO SCH (21:51)
[2018-02-25 01:53] VITALS: BP 144/68
[2018-02-25] MEDS: VENLAFAXINE XR 37.5 MG CAPCR PO SCH (08:07)
[2018-02-25] MEDS: CIPROFLOXACIN 500 MG TAB PO SCH ×2 (08:07→22:13)
[2018-02-25 09:15] VITALS: BP 152/114
[2018-02-25] MEDS: ONDANSETRON 4 MG ODT TABDP SL PRN ×2 (10:29→17:37)
[2018-02-25] MEDS: ACETAMINOPHEN 325 MG TAB PO PRN (10:30)
--- NOTE | 2018-02-25 14:48 | BHS Progress Note ---
[facility] - Subjective Progress Notes Subjective Pt seen in family session with her Fiance, her [id number], and team. Met for about an hour and family confronted pt with multiple episodes of her addictive behaviors: stealing money to buy pills, taking extra pain meds, lying , manipulating, "blaming" her problem on her father's 17 years ago. Overall it was a good session-- pt acknowledging her problem, apologizing, family expressed their hurt and anger, but also their willingness to stand by her as she works on sobriety. Rempyh-qt-drq made it clear that she will need a lot more time, and will need to see pt. sticking with treatment, before she is ready to forgive pt. Both family members strongly encouraging pt to go to inpatient rehab. All were listening to info presented by us regarding "disease model" of addiction, AA fundamentals, treatment options. Pt. says she is feeling much more clear in her thinking after only 2 days on LESS medication. Pt did c/o pain earlier today but relieved by prn tylenol given in addition to standing dose of percocet at half of her previous out-patient dose. No c/o nor evidence of opiate withdrawal. Tolerating initiation of effexor well. Slept ok. Appetite has been poor. Will work in therapy on sobriety education. Suicidal Ideation: None Homicidal Ideation: None [facility] - Objective Physical Exam Vital Signs Vital Signs 02/24/18 02/25/18 11:25 09:15 Temp 98.3 Pulse 103 Resp 15 B/P (MAP) 152/114 (127) Pulse Ox 96 O2 Delivery Room Air Muscle Strength and Tone: WNL Gait and Station: Steady [facility] Medications Reviewed: Side Effects, Benefits of Medication, Risks Allergies Reviewed: Yes Mental Status Exam General Appearance: Casual, Good Interaction, Tearful (very tearful thoughout most of meeting), Psychomotor Agitation Speech: Other (talking and crying at once most of session) Mood: Dysthmic/Depressed (Patient cries, affect is quite sad.) Affect: Sad (Cries when she acknowledges she has had two life threatening medical overdoses this week.), Tearful, Anxious, Agitated Thought Process: Organized Thought Content: No Suicidal Ideation, No Homicidal Ideation, No Delusions, No Auditory Halllucinations, No Visual Hallucinations, No Thought Broadcasting, No Ideas of Reference, No Obsessions, No Compulsions, No Other Sensorium: Clear Cognition: Alert & Oriented-Person, Alert & Oriented-Place, Alert & Oriented- Time, Mhdfa-Dsnorkiu-Werelgflp Memory: Immediate, Recent, Remote Intelligence: Average Insight Judgment: Poor Result Diagram: 02/24/18 1319 02/24/18 1319 [facility] Assessment and Plan [id number] Encounter Date: Feb 25, 2018 [id number] Encounter Time: 11:00 [facility] Plan: Admit to Unit, Necessary Precautions, Individual/Group Therapy, Admin /Titrate Meds, Educate Patient Tobacco Medications: Started Multpiple Antipsychotics Used: No Problems: (1) Opiate dependence Status: Acute (2) Depression Status: Chronic (3) Pain, chronic Status: Chronic UCHE REILLY MD Feb 25, 2018 14:48
[2018-02-25 20:05] VITALS: BP 135/91
[2018-02-26 05:00] VITALS: BP 142/99
[2018-02-26] MEDS: ACETAMINOPHEN 325 MG TAB PO PRN (05:10)
[2018-02-26] MEDS: CIPROFLOXACIN 500 MG TAB PO SCH ×2 (08:23→20:26)
[2018-02-26] MEDS: VENLAFAXINE XR 37.5 MG CAPCR PO SCH (08:23)
[2018-02-26 11:10] VITALS: BP 118/76
--- NOTE | 2018-02-26 11:38 | RADIOLOGY IMAGING REPORT ---
FACILITY: [facility] PATIENT NAME: Arelis Ryan : 1985 MR: [id number] V: [id number] EXAM DATE: ORDERING PHYSICIAN: UCHE REILLY TECHNOLOGIST: Location: [facility] Patient: Arelis Ryan : 1985 Visit/Account:[id number] Date of Sevice: 02/26/2018 Exam type: KNEE 3 VIEW LEFT History: History of morbid obesity, chronic joint pain Comparison: None. Findings: There is mild narrowing of the medial compartment of the left knee. No evidence of acute fracture di slocation. There is a small sclerotic density seen in the proximal metaphysis of the left tibia whic h may represent a bone island IMPRESSION: 1. Mild narrowing the medial compartment of the left knee Report Dictated By: Cha Madden MD at 02/26/2018 11:32 AM Report E-Signed By: Cha Madden MD at 02/26/2018 11:33 AM WSN:[email or web address]
--- NOTE | 2018-02-26 11:39 | RADIOLOGY IMAGING REPORT ---
FACILITY: [facility] PATIENT NAME: Arelis Ryan : 1985 MR: [id number] V: [id number] EXAM DATE: ORDERING PHYSICIAN: UCHE REILLY TECHNOLOGIST: Location: [facility] Patient: Arelis Ryan : 1985 Visit/Account:[id number] Date of Sevice: 02/26/2018 Exam type: KNEE 3 VIEW RIGHT History: History of morbid obesity, chronic joint pain Comparison: None. Findings: There is mild narrowing of the medial compartment of the right knee. No evidence of acute fracture o r dislocation. No radiopaque intra-articular loose bodies are seen IMPRESSION: 1. Mild narrowing medial compartment of the right knee Report Dictated By: Cha Madden MD at 02/26/2018 11:33 AM Report E-Signed By: Cha Madden MD at 02/26/2018 11:34 AM WSN:[email or web address]
--- NOTE | 2018-02-26 11:41 | RADIOLOGY IMAGING REPORT ---
FACILITY: [facility] [place] [place] PATIENT NAME: Arelis Ryan : 1985 MR: [id number] V: [id number] EXAM DATE: ORDERING PHYSICIAN: UCHE REILLY TECHNOLOGIST: Location: [facility] Patient: Arelis Ryan : 1985 Visit/Account:[id number] Date of Sevice: 02/26/2018 Exam type: PELVIS History: Chronic joint pain Hx of Morbid obesity Comparison: Sacrum and coccyx June 11, 2015. Findings: No significant arthritic change seen involving the hip joints. The SI joints appear symmetric bilate rally. There is no evidence of fractures. No lytic or blastic bone lesions are identified IMPRESSION: 1. No acute osteoarticular abnormality the pelvis is seen Report Dictated By: Cha Madden MD at 02/26/2018 11:34 AM Report E-Signed By: Cha Madden MD at 02/26/2018 11:37 AM WSN:[email or web address]
--- NOTE | 2018-02-26 14:03 | BHS Progress Note ---
[facility] - Subjective Progress Notes Subjective Pt seen in team meeting today with staff. Pt doing better today, says she feels more clear-headed on less medication. Tolerating Effexor well. We checked x-rays of hips and knees since pt reported that was the source of chronic pain-- these were negative for any arthritis or significant pathology. Pt has not been complaining of pain much, and she is willing to continue to taper and discontinue percocet completely. She is motivated to follow up with substance abuse rehab treatment and will do applications today for inpatient rehab. If there is a long waiting list for inpatient, she may start intensive outpatient while she waits for a bed. Still tearful a couple of times today talking about the losses drugs have caused for her. Pt working actively on treatment and educational materials regarding substance abuse. Suicidal Ideation: None Homicidal Ideation: None [facility] - Objective Physical Exam Vital Signs Vital Signs 02/26/18 02/26/18 05:00 11:10 Temp 98.4 Pulse 110 Resp 16 B/P (MAP) 118/76 (90) Pulse Ox 98 O2 Delivery Room Air Muscle Strength and Tone: WNL Gait and Station: Steady [facility] Medications Reviewed: Side Effects, Benefits of Medication, Risks Allergies Reviewed: Yes Mental Status Exam General Appearance: Casual, Well Groomed, Good Eye Contact, Cooperative, Polite , Good Interaction, Tearful (when talking about the losses drugs have caused her ), Psychomotor Agitation Speech: Clear, Spontaneous, Normal Rate, Normal Rhythm, Normal Volume, Normal Tone Mood: Dysthmic/Depressed Affect: Sad, Tearful Thought Process: Organized, Logical, Goal Directed Thought Content: No Suicidal Ideation, No Homicidal Ideation, No Delusions, No Auditory Halllucinations, No Visual Hallucinations, No Thought Broadcasting, No Ideas of Reference, No Obsessions, No Compulsions, No Other Sensorium: Clear Cognition: Alert & Oriented-Person, Alert & Oriented-Place, Alert & Oriented- Time, Ffzka-Kzhiflpr-Adiuwakep Memory: Immediate, Recent, Remote Intelligence: Average Insight Judgment: Poor, Fair Result Diagram: 02/24/18 1319 02/24/18 1319 [facility] Assessment and Plan [id number] Encounter Date: Feb 26, 2018 Fdwr-fg-[id number] Encounter Time: 09:30 [facility] Plan: Admit to Unit, Necessary Precautions, Individual/Group Therapy, Admin /Titrate Meds, Educate Patient Tobacco Medications: Started Multpiple Antipsychotics Used: No Problems: (1) Opiate dependence Status: Acute (2) Depression Status: Chronic (3) Pain, chronic Status: Chronic UCHE REILLY MD Feb 26, 2018 14:03
--- NOTE | 2018-02-26 16:39 | BHS - Psychiatric Evaluation ---
Title 25 Evaluation Hearing Report: 109 Date of Report: Feb 26, 2018 Examiner: Samantha Lei M.S., L.P.C. Patient Detained By: Law Enforcement 24hr Mental Health Eval By: Lobito Little M.D. and Samantha Lei L.P.C Date Patient Detained: Feb 23, 2018 Time Patient Detained: 19:30 Date Fpc Expires: Feb 28, 2018 Time Fpc Expires: 19:30 Legal Status: Police Hold: No Legal Status: Relationship: Single (Has a fiance.) Legal Status: Residence: [facility] Resident, State Resident Referral Source: Law Enforcement Assessment Data Provided By: Patient, Other Source (S professionals) Chief Complaint: Patient has dependence on prescription medications, and had two near fatal overdoses requiring Narcan within the same week. Last episode of too much medication required hospitalization within the Intensive Care Unit (ICU). Patient reports a difficult emotional anniversary related to her father's unfortunate passing 15 years ago. Patient says she is gravely affected by this , and "did not deal with this loss." HPI/ROS: Per Hospitalist, Dr. Pete Swann, "32yo female with a h/o chronic pain who was brought to the ER for unresponsiveness and concern for overdose. The patient is not able to give much history due to somnolence and there is no family or friends present, so the history is mostly from the ER provider. The patient was brought to the ER last night after a welfare check where she was found to have AMS and mild hypoxia. She cleared in the ER and was told to cut her narcotic pain medication in half. Tonight, she was found unresponsive with tablets in her mouth, which potentially were hydrocodone. She was given Narcan and she immediately woke up. Law enforcement placed her on emergency shelter for potential intentional overdose. The patient denies to me any intent to hurt herself and denies any other ingestions. She did admit to taking more hydrocodone throughout the day because of increased chronic pain. Upon review of her recent prescriptions through [place]'s prescription review, she received #60 pills of Percocet 10/325 from Cecile Pinon on 02/12 and the same amount from Porfirio Romero on 02/20 (her pain specialist), per the ER physician. She reports feeling a bit cold, some nausea and her chronic pelvis pain." Admission to care in ICU for continued monitoring of her deteriorating status. Opiate overdose requiring repeated Narcan to keep awake Reliability of Pt-Evidenced By Patient gives less information about drug seeking behavior than her fiance, who describes her taking others' medications. Current Dangerous Risk Assess: Self-Injurious Behaviors (Uses more medication than is indicated.), Protective Factors (Cares deeply for her sons and fiance. ) Current Risk Summary: Current risk summary for patient Arelis Ryan is high. Patient has dependence on prescription medications, and had two near fatal overdoses requiring Narcan within the same week. Last episode of too much medication required hospitalization within the Intensive Care Unit (ICU). Patient reports a difficult emotional anniversary related to her father's unfortunate passing 15 years ago. Patient says she is gravely affected by this , and "did not deal with this loss." Although patient is receiving outpatient care, it does not seem to be adequate support at this time. She is recommended a higher level , need for stabilization is important as appropriate intervention for two near fatal ingestions of medication. Past Dangerous Risk Assess: Suicide Ideation-last 6mo (Patient denies any suicidal ideation, ever.) BHS - Exam Physical Exam Vital Signs Vital Signs 02/26/18 02/26/18 05:00 11:10 Temp 98.4 Pulse 110 Resp 16 B/P (MAP) 118/76 (90) Pulse Ox 98 O2 Delivery Room Air Mental Status Exam General Appearance: Casual, Well Groomed, Good Eye Contact, Cooperative, Polite , Good Interaction, Tearful (when talking about the losses drugs have caused her ), Psychomotor Agitation Speech: Clear, Spontaneous, Normal Rate, Normal Rhythm, Normal Volume, Normal Tone Mood: Dysthmic/Depressed Affect: Sad, Tearful Thought Process: Organized, Logical, Goal Directed Thought Content: Suicidal Ideation (Denies, but says she had been very dysregulated on both nights when she was brought to ER and required Narcan to wake up from opiate overconsumption.), No Homicidal Ideation, No Delusions, No Auditory Halllucinations, No Visual Hallucinations, No Thought Broadcasting, No Ideas of Reference, No Obsessions, No Compulsions, No Other Sensorium: Clear Cognition: Alert & Oriented-Person, Alert & Oriented-Place, Alert & Oriented- Time, Bjdsz-Hoxzapnk-Hfultyske Memory: Immediate, Recent, Remote Intelligence: Average Insight Judgment: Poor, Fair Title 25 History Psychiatric History: Per Dr. Wilson, "The patient has never been hospitalized psychiatrically. On Paxil 40 mg daily for many years for depression, prescribed by her primary care nurse practitioner. The patient about a month ago started the [facility] [facility] and has started some group therapy and individual therapy, which is a routine part of that program. In addition, the program referred her to an outpatient practice, [facility], where she saw a medication provider for the first time about three or four weeks ago, and it was at that time that the patient's new medications were started, including Adderall, Xanax and Prazosin, and her Seroquel was increased. The patient has also seen a new outpatient therapist at that clinic twice in the last month. " Family Psychiatric Hx: Patient reports her father abused alcohol. Social History: Per Dr. Wilson, "Born in [place], [place] to parents who were at the time. Two sisters and one brother. Parents when she was [age] or [age] years old. She spent her childhood growing up in [place] with her mother and stepfather, and she would spend aguilar in [place] with her biological father. Graduated high school in [place], no further education. The patient lives with her FianceSurya. They have been together for 14 years. They have two boys together, one is 11 and one is 6. She reports a good marriage and feels that Surya is very supportive to her. 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 Trauma/Abuse History: Patient found her father 15 years ago. Drug & Alcohol Use: The patient reports that she used alcohol rarely in the past, but has had none in the past few years. She has never smoked marijuana. She smokes five to six cigarettes per day. She currently denies abusing her pain medications, but collateral report from her fiance indicates she is using other individuals' medications as well as her own. Consequences of Substance Use: Patient conveys willingness to address prescription drug abuse in residential counseling. Current Living Situation: Patient residing in [place] with her sons and fiance. Employment Issues: Patient is currently unemployed. Patient Strengths: Patient says she enjoys parenting her school age sons. Relevant Medications: Percocet and Effexor. Patient acknowledges a Percocet is problematic and agrees to wean and or stop use entirely. Assessment and Plan Course of Care: Course of care will be consistent with decompensation and need for support and education about prescription drug use. Patient will stabilize, and explore options for helping her deal with of her father in a safe environment. Patient assessed level of need is inpatient residential treatment for substance use. Diagnostic Impressions: Opiate use disorder severe. Status post opiate overdose. Persistent depressive disorder. Assessment and Plan: Patient will be maintained on appropriate precautions. She will attend individual and group therapy, beginning substance abuse treatment. Patient will receive medications to treat her depression and anxiety will stop all medications patient is potentially abusing - Seroquel, Prazosin, Xanax, Adderall and paroxetine. Risk Formulation: The patient "evidences behavior manifested by recent acts or omissions that, due to mental illness, the patient is unable to satisfy basic needs for nourishment, essential medical care, senior living, or safety so that a substantial probability exists that , serious physical injury, serious physical debilitation, serious mental debilitation, destabilization from lack of or refusal to take prescribed psychotropic medications for a diagnosed condition or serious physical disease will imminently ensue, unless the individual receives prompt and adequate treatment for this mental illness" as evidenced by: Current risk summary for patient Arelis Ryan is high. Patient has dependence on prescription medications, and had two near fatal overdoses requiring Narcan within the same week. Last episode of too much medication required hospitalization within the Intensive Care Unit (ICU). Patient reports a difficult emotional anniversary related to her father's unfortunate passing 15 years ago, and finding him . Patient says she is gravely affected by this , and "did not deal with this loss." Although patient is receiving outpatient care, it does not seem to be adequate support at this time. She is recommended a higher level, need for stabilization is important as appropriate intervention for two near fatal ingestions of medication. Recommendations of [facility] Team: It is therefore recommended by the Behavioral Health Services Team: Patient Arelis Ryan , stay the full extent of her 72 hour hold or until she stabilizes at [facility]. She is currently assessed as unstable. It may be further requested of the court that patient be ordered to stay at [facility] for up to 10 days or until she becomes stable and no longer an imminent risk to herself. SAMANTHA LEI DIE SETTER Feb 26, 2018 16:39
[2018-02-26] MEDS: ONDANSETRON 4 MG ODT TABDP SL PRN (20:26)
[2018-02-27 05:41] VITALS: BP 139/92
[2018-02-27] MEDS: VENLAFAXINE XR 37.5 MG CAPCR PO SCH (07:48)
[2018-02-27] MEDS: CIPROFLOXACIN 500 MG TAB PO SCH ×2 (07:49→20:25)
--- NOTE | 2018-02-27 14:32 | BHS Progress Note ---
[facility] - Subjective Progress Notes Subjective Pt seen in team room with staff. Pt reports good mood, she is working hard on all groups and psychoeducation materials. She requests that percocet be discontinued today. She is motivated to complete application to in-patient rehab in [place] today, and hopefully we can discharge her home tomorrow to begin intensive outpatient therapy until a bed opens up in [place]. Tolerating effexor well without side effects-- will increase dose to 150 mg tomorrow. She did not sleep well last night, and we discussed sleep hygiene. Suicidal Ideation: None Homicidal Ideation: None S - Objective Physical Exam Vital Signs Vital Signs 02/27/18 05:41 Temp 99.0 Pulse 86 Resp 15 B/P (MAP) 139/92 (108) Pulse Ox 95 O2 Delivery Room Air Muscle Strength and Tone: WNL Gait and Station: Steady [facility] Medications Reviewed: Side Effects, Benefits of Medication, Risks Allergies Reviewed: Yes Mental Status Exam General Appearance: Casual, Well Groomed, Good Eye Contact, Cooperative, Polite , Good Interaction, Tearful (when talking about the losses drugs have caused her ), Psychomotor Agitation Speech: Clear, Spontaneous, Normal Rate, Normal Rhythm, Normal Volume, Normal Tone Mood: Dysthmic/Depressed Affect: Sad, Tearful Thought Process: Organized, Logical, Goal Directed Thought Content: No Suicidal Ideation, No Homicidal Ideation, No Delusions, No Auditory Halllucinations, No Visual Hallucinations, No Thought Broadcasting, No Ideas of Reference, No Obsessions, No Compulsions, No Other Sensorium: Clear Cognition: Alert & Oriented-Person, Alert & Oriented-Place, Alert & Oriented- Time, Tqwkg-Yzdtgmal-Hnllquzqh Memory: Immediate, Recent, Remote Intelligence: Average Insight Judgment: Poor, Fair Result Diagram: 02/24/18 1319 02/24/18 1319 [facility] Assessment and Plan Eumc-gd-Pmys Encounter Date: Feb 27, 2018 Nppl-wt-Jhmz Encounter Time: 10:00 [facility] Plan: Admit to Unit, Necessary Precautions, Individual/Group Therapy, Admin /Titrate Meds, Educate Patient Tobacco Medications: Started Multpiple Antipsychotics Used: No Problems: (1) Opiate dependence Status: Acute (2) Depression Status: Chronic (3) Pain, chronic Status: Chronic UCHE REILLY MD Feb 27, 2018 14:32
[2018-02-27] MEDS: ONDANSETRON 4 MG ODT TABDP SL PRN (20:25)
[2018-02-27 20:30] VITALS: BP 140/85
[2018-02-28 05:20] VITALS: BP 125/104
[2018-02-28] MEDS: CIPROFLOXACIN 500 MG TAB PO SCH (08:51)
[2018-02-28] MEDS ORDERED: VENLAFAXINE XR 75 MG CAPCR PO SCH (09:00)
[2018-02-28] MEDS ORDERED: CIPR-214 PO (10:41)
[2018-02-28] MEDS ORDERED: VENL150C61 PO (10:44)
[2018-02-28 12:55] VITALS: BP 138/88
--- NOTE | 2018-03-01 22:19 | DISCHARGE SUMMARY ---
DATE OF ADMISSION: February 24, 2018 DATE OF DISCHARGE: February 28, 2018 The patient was seen in the a.m. of 28 February 2018 approximately 0930 hours for note concerning this dictation. FINAL DIAGNOSES 1. Opiate use disorder, severe. 2. Persistent depressive disorder. 3. Urinary tract infection. 4. Supportive relationship with . REASON FOR ADMISSION This is a 32-year-old female who is very calm, pleasant, and cooperative with discharge day requirements and patient interacting well on the unit. Patient noted to be taking an active role in her treatment and taking a believable approach to wanting to abstain from opiates and all medications in the future. Patient not displaying drug-seeking behaviors on the unit. Patient's opiate withdrawal considered complete by time of discharge. Again, please refer to H and P for full details concerning her admission. Patient denying any depressive symptoms or any other psychiatric concerns. PHYSICAL EXAMINATION Please see emergency room note. Notable for a 32-year-old female who had been taking opiates to the point where Narcan was required. Patient admitted to medical floor for overnight observation. Patient continued to improve. Patient was then seen on [facility]. GENERAL: At time of admission, obtunded female. VITAL SIGNS: Upon admission to [facility] showed temperature 101.1, pulse 109, respiratory rate 15, blood pressure 120/72, and pulse oximetry 97 on room air. At time of discharge, temperature 98.4, pulse 108, respiratory rate 15, blood pressure 138/88, and pulse oximetry 97 on room air. MENTAL STATUS EXAMINATION GENERAL APPEARANCE, BEHAVIOR, AND ATTITUDE: This is a pleasant, 32-year-old female interacting well with treatment team staff, this provider, and her in the room. No psychomotor agitation or retardation. No bizarre mannerisms or tics. Making good eye contact. SPEECH: Within normal limits. Regular rate, rhythm, volume, and tone. MOOD: Described as improved. AFFECT: Full and mood congruent. THOUGHT PROCESSES: Logical, goal directed. No loose associations or flight of ideas. THOUGHT CONTENT: Free of auditory or visual hallucinations, ideas of reference , thought broadcasting, delusions, obsessions, compulsions. Patient adamantly denying suicidal or homicidal ideations. SENSORIUM: Clear. COGNITION: Alert and oriented to person, place, time, situation. MEMORY: Immediate, recent, and remote estimated intact. INTELLIGENCE: Average based on interview. INSIGHT AND JUDGMENT: Considered grossly intact in the absence of opiates or other substance use. RESULTS OF TESTING IMAGING: None. LABORATORY DATA: See above. PSYCHOLOGICAL TESTING Not done. CONSULTATIONS None. TREATMENT Patient received medications, participated in individual and group therapy. HOSPITAL COURSE Patient took an active role in her treatment. Patient appeared to be an accurate historian, and patient continued to indicate a desire to abstain from all opiates in the future. Patient's opiate withdrawal was treated to completion. Patient was treated for UTI while on the unit with ciprofloxacin, and patient's mood continued to improve. CONDITION OF PATIENT ON DISCHARGE Stable. Considered minimal risk to herself or others and appropriate for ongoing outpatient management. DISPOSITION Patient discharged to home in care of her . She would follow up with outpatient medication and therapy, would consider residential rehab for opiate use disorder if necessary, follow up with primary care provider for anemia, abstain from all addictive substances. Crisis line was given should symptoms return. Patient would stop all other medications at home concerning addictive and abusable substances including amphetamines and benzodiazepines prescribed by an outpatient provider. Patient would remain on Effexor XR 150 mg p.o. q.a.m., Cipro 500 mg p.o. b.i.d. for four days. Risks, benefits, and alternatives of above discharge plan were discussed. Informed consent was given to proceed by above discharge plan by this competent patient and patient's present at time of discharge. RADHA
== END 2018-02-28 17:17 | disposition home or self-care (01) | DRG 897 ==
LOC: BHS 11:03
PROVIDERS: ADMIT Psychiatry & Neurology Psychiatry; ATTEND Psychiatry & Neurology Psychiatry
DX: F11.23 Opioid dependence with withdrawal (principal); N39.0 Urinary tract infection, site not specified; G89.29 Other chronic pain; F34.1 Dysthymic disorder; T40.2X1A Poisoning by other opioids, accidental (unintentional), initial encounter; F90.9 Attention-deficit hyperactivity disorder, unspecified type; F43.12 Post-traumatic stress disorder, chronic; F17.210 Nicotine dependence, cigarettes, uncomplicated; Y92.009 Unspecified place in unspecified non-institutional (private) residence as the place of occurrence of the external cause; Z81.8 Family history of other mental and behavioral disorders
CPT/HCPCS: 36415; 72170; 81001; 82040; 82247; 82310; 82374; 82435; 82565; 82947; 84075; 84132; 84155; 84295; 84450; 84460; 84520; 85025; 86580; 90853; S0119

== ENCOUNTER → 2018-06-05 | Outpatient (CLI) | payer MEDICAID ==
[~2018-06-05] MED LIST changes: +CIPR-214 PO; +VENL150C61 PO
[2018-06-05 16:00] LABS: PLATELET COUNT, AUTOMATED 436 K/uL (150-450)
== END ==
LOC: LAB 14:49
PROVIDERS: ATTEND Internal Medicine
DX: F32.9 Major depressive disorder, single episode, unspecified (principal); G89.29 Other chronic pain; Z98.84 Bariatric surgery status
CPT/HCPCS: 36415; 82040; 82247; 82306; 82310; 82374; 82435; 82565; 82607; 82728; 82746; 82947; 83540; 83550; 84075; 84132; 84155; 84295; 84443; 84450; 84460; 84520; 85025

== ENCOUNTER → 2018-07-02 | Outpatient (CLI) | payer MEDICAID ==
[2018-07-02 07:34] LABS: PLATELET COUNT, AUTOMATED 380 K/uL (150-450)
--- NOTE | 2018-07-02 08:29 | RADIOLOGY IMAGING REPORT ---
FACILITY: [facility] PATIENT NAME: Arelis Ryan : 1985 MR: [id number] V: [id number] EXAM DATE: ORDERING PHYSICIAN: PAPO CADET TECHNOLOGIST: [facility] Patient: Arelis Ryan : 1985 Visit/Account:[id number] Date of Sevice: 07/02/2018 HIPS BILATERAL HISTORY: Bilateral knee pain x3 months. Low back pain Pelvis and bilateral hip films FINDINGS: Pelvis is intact with no acute osseous pathology. Both hip joints well-maintained with respect to jose int spaces with no joint space narrowing. No bony productive changes noted. SI joints and lower lumbar spines normal. Nonspecific bowel gas pattern. No abdominal or pelvic mass lesions. Fluid was pelvis. IMPRESSION: 1. Normal pelvis and bilateral hip films. Report Dictated By: Renny Zapata MD at 07/02/2018 8:24 AM Report E-Signed By: Renny Zapata MD at 07/02/2018 8:25 AM WSN:[email or web address]
--- NOTE | 2018-07-02 08:38 | RADIOLOGY IMAGING REPORT ---
FACILITY: [facility] PATIENT NAME: Arelis Ryan : 1985 MR: [id number] V: [id number] EXAM DATE: ORDERING PHYSICIAN: PAPO CADET TECHNOLOGIST: Location: [facility] Patient: Arelis Ryan : 1985 Visit/Account:[id number] Date of Sevice: 07/02/2018 KNEE 1 OR 2 VIEW BILATERAL HISTORY: Bilateral knee pain Three-view examination of the of both knees FINDINGS: Left knee: No acute osseous pathology. Mild narrowing of the medial joint compartment. No subchondral sclerosi s noted. A very minimal early medial and lateral tibial plateau lipping developing. There is also a n seven degree valgus orientation to the weightbearing film. Lateral film demonstrates no joint effusion. Right knee: No acute bony pathology. Very minimal early lipping noted along the medial and lateral tibial platea u. Mild medial joint compartment narrowing change. A degree valgus orientation to the knee joint on the weightbearing film. This is slightly more pronounced than the previous study. No joint effusion. Soft tissues unremarkable. IMPRESSION: 1. Symmetric medial joint compartment narrowing changes with symmetric mild valgus orientation to alexa th knee joints. Report Dictated By: Renny Zapata MD at 07/02/2018 8:25 AM Report E-Signed By: Renny Zapata MD at 07/02/2018 8:34 AM WSN:[email or web address]
--- NOTE | 2018-07-02 08:39 | RADIOLOGY IMAGING REPORT ---
FACILITY: [facility] PATIENT NAME: Arelis Ryan : 1985 MR: [id number] V: [id number] EXAM DATE: ORDERING PHYSICIAN: PAPO CADET TECHNOLOGIST: Location: Patient: Arelis Ryan : 1985 Visit/Account:[id number] Date of Sevice: 07/02/2018 PELVIS HISTORY: Hip pain AP pelvic film FINDINGS: Pelvic girdle is intact with no acute osseous pathology. Both hip joints well-maintained. SI joints and lower lumbar spines normal. Please listen the pelvis. IMPRESSION: 1. Unremarkable pelvis Report Dictated By: Renny Zapata MD at 07/02/2018 8:34 AM Report E-Signed By: Renny Zapata MD at 07/02/2018 8:35 AM WSN:[email or web address]
[2018-07-02 09:04] LABS: LDL CHOLESTEROL 121 mg/dl
== END ==
LOC: RAD 07:13
PROVIDERS: ATTEND Nurse Practitioner Family
DX: M54.5 Low back pain (principal); M25.551 Pain in right hip; M25.552 Pain in left hip; M21.061 Valgus deformity, not elsewhere classified, right knee; M21.062 Valgus deformity, not elsewhere classified, left knee
CPT/HCPCS: 36415; 72170; 73522; 82040; 82247; 82306; 82310; 82374; 82435; 82465; 82565; 82607; 82947; 83718; 84075; 84132; 84155; 84295; 84443; 84450; 84460; 84478; 84520; 85025; 86140; 86430; 86677

== ENCOUNTER → 2018-07-19 | Outpatient (CLI) | payer MEDICAID ==
--- NOTE | 2018-07-19 09:17 | RADIOLOGY IMAGING REPORT ---
FACILITY: [facility] PATIENT NAME: Arelis Ryan : 1985 MR: [id number] V: [id number] EXAM DATE: ORDERING PHYSICIAN: PAPO CADET TECHNOLOGIST: Location: [facility] [place] Patient: Arelis Ryan : 1985 Visit/Account:[id number] Date of Sevice: 07/19/2018 Exam type: SACRUM COCCYX History: Fell on tailbone and lower back with pain Comparison: June 11, 2015. Findings: There is no evidence of acute fracture or dislocation involving the sacrum or coccyx. No lytic or bl astic lesions identified IMPRESSION: 1. No evidence of acute fracture or dislocation involving the sacrum or coccyx. If patient's pain c ontinues CT or MR may be helpful to exclude an occult injury Report Dictated By: Cha Madden MD at 07/19/2018 9:10 AM Report E-Signed By: Cha Madden MD at 07/19/2018 9:14 AM WSN:[email or web address]
--- NOTE | 2018-07-19 09:19 | RADIOLOGY IMAGING REPORT ---
FACILITY: [facility] [place] PATIENT NAME: Arelis Ryan : 1985 MR: [id number] V: [id number] EXAM DATE: ORDERING PHYSICIAN: PAPO CADET TECHNOLOGIST: Location: [facility] [place] Patient: Arelis Ryan : 1985 Visit/Account:[id number] Date of Sevice: 07/19/2018 Exam type: LUMBAR SPINE 2 OR 3 VIEW History: Fell on tailbone and lower back with pain Comparison: MRI lumbar spine July 10, 2015. Findings: There are five nonrib-bearing lumbar type to bodies present. There is no evidence of acute fractures or subluxations. The disc spaces appear well-preserved. Incidentally noted are surgical clips in r ight upper quadrant of abdomen and surgical lara left upper quadrant IMPRESSION: 1. No evidence of acute fractures or subluxations the lumbar spine Report Dictated By: Cha Madden MD at 07/19/2018 9:14 AM Report E-Signed By: Cha Madden MD at 07/19/2018 9:16 AM WSN:[email or web address]
== END ==
LOC: RAD 08:16
PROVIDERS: ATTEND Nurse Practitioner Family
DX: M53.3 Sacrococcygeal disorders, not elsewhere classified (principal); W19.XXXA Unspecified fall, initial encounter; D64.9 Anemia, unspecified; E55.9 Vitamin D deficiency, unspecified
CPT/HCPCS: 36415; 72100; 72220; 82746

== ENCOUNTER → 2018-09-07 | Outpatient (CLI) | payer MEDICAID ==
[~2018-09-07] MED LIST changes: +IOPAMIDOL 76% 75 ML INFUS BTL 75 ML ONE
--- NOTE | 2018-09-07 09:07 | RADIOLOGY IMAGING REPORT ---
FACILITY: [facility] PATIENT NAME: Arelis Ryan : 1985 MR: [id number] V: [id number] EXAM DATE: [id number] ORDERING PHYSICIAN: ALISA MCQUEEN TECHNOLOGIST: Location: [facility] - [place] Patient: Arelis Ryan : 1985 Visit/Account:[id number] Date of Sevice: 09/07/2018 ABDOMEN/PELVIS WITH CONTRAST HISTORY: Epigastric pain, nausea vomiting, history of gastric bypass September 2014 TECHNIQUE: Following administration of IV contrast contiguous axial images acquired through the abdom en/pelvis. Coronal and sagittal reformatting also performed.Dose Lowering Technique One of the following dose optimization techniques was utilized in the performance of this exam: Autom ated exposure control; adjustment of the mA and/or kV according to the patient's size; or use of an i terative reconstruction technique. Specific details can be referenced in the facility's radiology C T exam operational policy. CONTRAST: 75 mL Isovue-370 COMPARISON: October 03, 2017 FINDINGS: Visualized lung bases: Negative. Hepatobiliary: Postsurgical changes from a cholecystectomy. There is mild intra and extra hepatic b iliary ductal dilatation although appears similar to the prior study Spleen: Negative. Adrenals: Negative. Pancreas: Negative. Kidneys ureters or bladder: Negative. Genitalia: Negative. GI: Again noted are postsurgical changes from a gastric bypass. Surgical anastomoses also seen in s mall bowel loops in the midabdomen. There are multiple mildly dilated fluid-filled loops of small alexa wel throughout the abdomen. These loops are most prominent in the left upper quadrant of abdomen jus t beyond the surgical anastomosis and also adjacent to the small bowel anastomoses in the midabdomen. The gastric pouch contains a small amount of fluid although does not appear overly distended. Altha n does not appear dilated Vessels/spaces/nodes: Negative. Bones/soft tissues: Negative. Additional findings: There is a trace amount of free pelvic fluid which could be physiologic IMPRESSION: Postsurgical changes from a cholecystectomy with mild intrahepatic biliary ductal dilatation although appears similar to the prior study. Again noted are postsurgical changes from a gastric bypass. Surgical anastomoses are also present in small bowel loops. There are multiple mildly dilated fluid-filled loops of small bowel throughout t he abdomen. These loops are most prominent in the left upper quadrant of abdomen just beyond the wes gical anastomoses and also adjacent small bowel anastomoses in the mid abdomen. Colon appears decomp ressed. Given the clinical history of nausea and vomiting findings are concerning for partial small bowel obstruction. Other considerations would be an ileus or atonic segments of bowel related to the prior surgery. Correlation with clinical findings needed Report Dictated By: Cha Madden MD at 09/07/2018 8:52 AM Report E-Signed By: Cha Madden MD at 09/07/2018 9:03 AM LINN:[email or web address]
== END ==
LOC: CT 06:55
PROVIDERS: ATTEND Surgery
DX: Z90.49 Acquired absence of other specified parts of digestive tract (principal); Z98.84 Bariatric surgery status; Z98.0 Intestinal bypass and anastomosis status; R10.13 Epigastric pain
CPT/HCPCS: 74177; Q9967

== ENCOUNTER 2018-10-19 13:00 | Emergency (ER) | payer MEDICAID ==
[~2018-10-19 13:00] MED LIST changes: -IOPAMIDOL 76% 75 ML INFUS BTL 75 ML ONE
--- NOTE | 2018-10-19 13:03 | ER Report ---
History and Physical Time Seen By MD: 13:02 HPI/ROS CHIEF COMPLAINT: Abdominal pain, concern for G-tube malfunction HISTORY OF PRESENT ILLNESS: Patient is a 33-year-old female status post gastric bypass [facility] reports significant pain while flushing her G-tube. She comes in due to concern for G-tube malfunction in the setting of malnutrition. Patient is afebrile, tachycardic at time of evaluation complaining of severe pain. REVIEW OF SYSTEMS: Constitutional: No fever, no chills. Eyes: No discharge. ENT: No sore throat. Cardiovascular: No chest pain, no palpitations. Respiratory: No cough, no shortness of breath. Gastrointestinal: + abdominal pain at G tube site, no vomiting. Genitourinary: No hematuria. Musculoskeletal: No back pain. Skin: No rashes. Neurological: No headache. Allergies: Coded Allergies: ketorolac (Verified Allergy, Intermediate, 10/19/18) tramadol (Verified Allergy, Unknown, 02/23/18) Uncoded Allergies: HAYFEVER CATS (Allergy, Mild, SINUS CONGESTION, 04/17/08) Home Meds Reported Medications Albuterol Sulfate (PROVENTIL HFA) 6.7 Gm Inh, 1-2 PUFF INH 3-4XD PRN for shortness of breath, INH 02/24/18 Hx Smoking: Yes Smoking Status: Current: Every Day Smoker Exposure to Second Hand Smoke?: Yes Hx Substance Use Disorder: No Hx Alcohol Use: No (claims no alcohol consumption) Constitutional Vital Sign - Last 24 Hours 10/19/18 10/19/18 10/19/18 13:07 13:08 13:30 Temp 98.9 Pulse 133 112 Resp 18 B/P (MAP) 129/83 129/83 (98) 106/85 (92) Pulse Ox 95 94 O2 Delivery Room Air Physical Exam General Appearance: The patient is alert, has no immediate need for airway protection and no signs of toxicity. Moderate distress secondary to pain Eyes: Pupils equal and round no pallor or injection. ENT, Mouth: Mucous membranes are moist. Respiratory: There are no retractions, lungs are clear to auscultation. Cardiovascular: + tachy, regular Gastrointestinal: + abdominal tenderness around g tube site, no erythema or distension, no masses, bowel sounds normal. Neurological: No focal neuro deficits Skin: Warm and dry, no rashes. Musculoskeletal: Neck is supple non tender. Extremities are nontender, nonswollen and have full range of motion. DIFFERENTIAL DIAGNOSIS: After history and physical exam differential diagnosis was considered for G-tube malfunction, normal post procedural pain, chronic abdominal pain, infectious etiology Medical Decision Making Data Points Result Diagram: 10/19/18 0000 10/19/18 0000 Laboratory Hematology Test 10/19/18 00:00 Red Blood Count 3.93 M/uL (4.17-5.56) Mean Corpuscular Volume 79.8 fL (80.0-96.0) Mean Corpuscular Hemoglobin 25.9 pg (26.0-33.0) Mean Corpuscular Hemoglobin Concent 32.4 g/dL (32.0-36.0) Red Cell Distribution Width 16.9 % (11.5-14.5) Mean Platelet Volume 7.8 fL (7.2-11.1) Neutrophils (%) (Auto) 59.4 % (39.4-72.5) Lymphocytes (%) (Auto) 28.4 % (17.6-49.6) Monocytes (%) (Auto) 8.2 % (4.1-12.4) Eosinophils (%) (Auto) 3.0 % (0.4-6.7) Basophils (%) (Auto) 1.0 % (0.3-1.4) Nucleated RBC Relative Count (auto) 0.0 /100WBC Neutrophils # (Auto) 4.5 K/uL (2.0-7.4) Lymphocytes # (Auto) 2.1 K/uL (1.3-3.6) Monocytes # (Auto) 0.6 K/uL (0.3-1.0) Eosinophils # (Auto) 0.2 K/uL (0.0-0.5) Basophils # (Auto) 0.1 K/uL (0.0-0.1) Nucleated RBC Absolute Count (auto) 0.00 K/uL Sodium Level 138 mmol/L (137-145) Potassium Level 4.1 mmol/L (3.5-5.0) Chloride Level 102 mmol/L (98-107) Carbon Dioxide Level 24 mmol/L (22-31) Blood Urea Nitrogen 10 mg/dl (7-18) Creatinine 0.60 mg/dl (0.52-1.04) Glomerular Filtration Rate Calc > 60.0 Random Glucose 92 mg/dl (75-110) Calcium Level 9.3 mg/dl (8.4-10.2) Total Bilirubin 0.3 mg/dl (0.2-1.3) Aspartate Amino Transf (AST/SGOT) 32 U/L (0-35) Alanine Aminotransferase (ALT/SGPT) 109 U/L (0-56) Alkaline Phosphatase 392 U/L (0-126) Total Protein 7.8 g/dl (6.3-8.2) Albumin 3.9 g/dl (3.5-5.0) Lipase 112 U/L (23-300) Chemistry Test 10/19/18 00:00 White Blood Count 7.6 k/uL (4.5-11.0) Red Blood Count 3.93 M/uL (4.17-5.56) Hemoglobin 10.2 g/dL (12.0-16.0) Hematocrit 31.4 % (34.0-47.0) Mean Corpuscular Volume 79.8 fL (80.0-96.0) Mean Corpuscular Hemoglobin 25.9 pg (26.0-33.0) Mean Corpuscular Hemoglobin Concent 32.4 g/dL (32.0-36.0) Red Cell Distribution Width 16.9 % (11.5-14.5) Platelet Count 640 K/uL (150-450) Mean Platelet Volume 7.8 fL (7.2-11.1) Neutrophils (%) (Auto) 59.4 % (39.4-72.5) Lymphocytes (%) (Auto) 28.4 % (17.6-49.6) Monocytes (%) (Auto) 8.2 % (4.1-12.4) Eosinophils (%) (Auto) 3.0 % (0.4-6.7) Basophils (%) (Auto) 1.0 % (0.3-1.4) Nucleated RBC Relative Count (auto) 0.0 /100WBC Neutrophils # (Auto) 4.5 K/uL (2.0-7.4) Lymphocytes # (Auto) 2.1 K/uL (1.3-3.6) Monocytes # (Auto) 0.6 K/uL (0.3-1.0) Eosinophils # (Auto) 0.2 K/uL (0.0-0.5) Basophils # (Auto) 0.1 K/uL (0.0-0.1) Nucleated RBC Absolute Count (auto) 0.00 K/uL Glomerular Filtration Rate Calc > 60.0 Calcium Level 9.3 mg/dl (8.4-10.2) Total Bilirubin 0.3 mg/dl (0.2-1.3) Aspartate Amino Transf (AST/SGOT) 32 U/L (0-35) Alanine Aminotransferase (ALT/SGPT) 109 U/L (0-56) Alkaline Phosphatase 392 U/L (0-126) Total Protein 7.8 g/dl (6.3-8.2) Albumin 3.9 g/dl (3.5-5.0) Lipase 112 U/L (23-300) EKG/Imaging Imaging Exam type: KUB SINGLE VIEW ABDOMEN History: Evaluate PEG tube placement Comparison: October 03, 2017 Findings: 15 mL of Gastrografin water mixture was injected through the PEG tube and a KUB was performed. The Gastrografin pooled in the dependent portion of the gastric fundus. No extraluminal extravasation was identified. Surgical lara and clips are identified in the upper abdomen. There appear to be several loops of minimally dilated air-filled small bowel in the mid left abdomen. Could be related to peristalsis versus mild localized ileus. The remainder the bowel gas pattern appears nonspecific. IMPRESSION: 1. Peg tube appears to been good position ED Course/Re-evaluation ED Course Patient is a 33-year-old female here status post feeding tube placement with a history of gastric bypass in the past with malnutrition. Patient reports having persistent pain since time of placement recently at [facility]. KUB with Gastrografin administration confirmed adequate placement. Labs are unremarkable aside from increased alkaline phosphatase which was likely elevated due to recent procedures and reported recent surgery. Patient was given fentanyl for analge aris. Patient was advised to follow-up with her PCP and not keep her previously scheduled appointments. Patient is hemodynamically stable, afebrile at time of discharge. Decision to Disposition Date: Oct 19, 2018 Decision to Disposition Time: 14:35 Depart Departure Latest Vital Signs Vital Signs Date Time Temp Pulse Resp B/P (MAP) Pulse Ox O2 Delivery O2 Flow Rate FiO2 10/19/18 13:30 112 106/85 (92) 94 10/19/18 13:07 98.9 18 Room Air Impression: Primary Impression: Abdominal pain Condition: Improved Disposition: HOME OR SELF-CARE Referrals: PAM BLACKMON MD (PCP) Patient Instructions: Abdominal Pain (ED) Additional Instructions: Your feeding tube is in the correct position. Please follow-up with your primary care physician for outpatient treatment and care. Please return if you develop fevers, chills, worsening abdominal pain, nausea, vomiting, inability to keep down food or fluids. FESTUS JESSICA DO Oct 19, 2018 13:03
[2018-10-19 13:30] VITALS: BP 106/85
[2018-10-19] MEDS ORDERED: fentaNYL CITR 100 MCG/2 ML AMP IVP ONE (13:30)
[2018-10-19 13:55] LABS: PLATELET COUNT, AUTOMATED 640 K/uL (150-450)
[2018-10-19] MEDS ORDERED: DIATRIZOATE MEGL/DIATRIZOA SOD 367 MG/ML SOLN ONE (14:00)
--- NOTE | 2018-10-19 14:29 | RADIOLOGY IMAGING REPORT ---
FACILITY: [facility] - [place] PATIENT NAME: Arelis Ryan : 1985 MR: [id number] V: [id number] EXAM DATE: [id number] ORDERING PHYSICIAN: FESTUS JESSICA TECHNOLOGIST: [place] [facility] [place] Arelis Ryan : 1985 Visit/Account:[id number] Date of Sevice: 10/19/2018 Exam type: KUB SINGLE VIEW ABDOMEN History: Evaluate PEG tube placement Comparison: October 03, 2017 Findings: 15 mL of Gastrografin water mixture was injected through the PEG tube and a KUB was performed. The G astrografin pooled in the dependent portion of the gastric fundus. No extraluminal extravasation was identified. Surgical lara and clips are identified in the upper abdomen. There appear to be sev eral loops of minimally dilated air-filled small bowel in the mid left abdomen. Could be related to peristalsis versus mild localized ileus. The remainder the bowel gas pattern appears nonspecific. IMPRESSION: 1. Peg tube appears to been good position Report Dictated By: Cha Madden MD at 10/19/2018 2:22 PM Report E-Signed By: Cha Madden MD at 10/19/2018 2:24 PM WSN:[email or web address]
== END 2018-10-19 14:45 | disposition home or self-care (01) ==
LOC: ER 13:15
DX: R10.9 Unspecified abdominal pain (principal); Z98.84 Bariatric surgery status; Z93.1 Gastrostomy status
CPT/HCPCS: 74018; 83690; 85025; 96374; 99283; J3010; 82040; 82247; 82310; 82374; 82435; 82565; 82947; 84075; 84132; 84155; 84295; 84450; 84460; 84520

== ENCOUNTER 2018-10-30 13:14 | Emergency (ER) | payer MEDICAID ==
[2018-10-30] MEDS ORDERED: ONDA4TAB9 PO (13:38)
[2018-10-30] MEDS ORDERED: LORA-1456 PO (13:38)
[2018-10-30] MEDS ORDERED: OXYC-373 PO (13:38)
[2018-10-30] MEDS ORDERED: NS(*) 0.9% 1000 ML BAG 1,000 ML IV ONE (13:40)
[2018-10-30] MEDS ORDERED: MORPHINE 4 MG/ML SDV IV ONE (13:40)
[2018-10-30] MEDS ORDERED: ONDANSETRON 4 MG/2 ML VIAL IVP ONE (13:40)
[2018-10-30 14:02] LABS: PLATELET COUNT, AUTOMATED 431 K/uL (150-450)
[2018-10-30] MEDS ORDERED: IOPAMIDOL 76% 50 ML INFUS BTL 100 ML ONE (14:31)
--- NOTE | 2018-10-30 15:34 | ER Report ---
History and Physical Time Seen By MD: 13:20 Hx. of Stated Complaint: ABD PAIN HPI/ROS CHIEF COMPLAINT: Abdominal pain HISTORY OF PRESENT ILLNESS: Patient is a 33-year-old female who presents the ED with complaint of abdominal pain and nausea. She states that she has a history of multiple abdominal surgeries. She states that she had part of her intestine removed and a gastric tube placed last month. She has been having some intermittent pain with this since. She has seen her surgeon last week and was doing well at the time. She states that she has also had a history of a appendectomy and a cholecystectomy in the past. Patient has not been taking any medication for pain relief at this time. She has had some nausea but denies any vomiting. She denies any diarrhea. She denies any fever. REVIEW OF SYSTEMS: Constitutional: No fever, no chills. Eyes: No discharge. ENT: No sore throat. Cardiovascular: No chest pain, no palpitations. Respiratory: No cough, no shortness of breath. Gastrointestinal: The history of present illness. Genitourinary: No hematuria. Musculoskeletal: No back pain. Skin: No rashes. Neurological: No headache. Allergies: Coded Allergies: ketorolac (Verified Allergy, Intermediate, 10/30/18) tramadol (Verified Allergy, Unknown, 10/30/18) SEIZURES Uncoded Allergies: HAYFEVER CATS (Allergy, Mild, SINUS CONGESTION, 04/17/08) Home Meds Reported Medications Oxycodone Hcl/Acetaminophen (OXYCODONE-ACETAMINOPHEN 5-325) 1 Each Tablet, 2 EACH PO Q4-6H PRN for PAIN, TAB 10/30/18 Lorazepam (ATIVAN) 1 Mg Tablet, 1 MG PO Q4-6H PRN for ANXIETY 10/30/18 Ondansetron 4 Mg Odt (ONDANSETRON 4 MG ODT) 4 Mg Tab.rapdis, 4 MG PO Q4-6H PRN for NAUSEA, TAB 10/30/18 Albuterol Sulfate (PROVENTIL HFA) 6.7 Gm Inh, 1-2 PUFF INH 3-4XD PRN for shortness of breath, INH 02/24/18 Reviewed Nurses Notes: Yes Old Medical Records Reviewed: Yes Hx Smoking: Yes Smoking Status: Current: Every Day Smoker Exposure to Second Hand Smoke?: Yes Hx Substance Use Disorder: Yes (claims no substance use/abuse) Hx Alcohol Use: No (claims no alcohol consumption) Constitutional Vital Sign - Last 24 Hours 10/30/18 10/30/18 10/30/18 10/30/18 13:14 13:24 13:26 13:30 Temp 98.7 Pulse 128 138 Resp 24 16 B/P (MAP) 138/100 (113) 138/100 125/98 (107) Pulse Ox 98 94 O2 Delivery Room Air 10/30/18 10/30/18 10/30/18 10/30/18 13:44 14:00 14:14 14:30 Pulse 104 90 Resp 28 B/P (MAP) 115/84 (94) 103/70 (81) Pulse Ox 97 98 10/30/18 10/30/18 10/30/18 10/30/18 14:44 14:49 15:19 15:23 Pulse 109 103 95 B/P (MAP) 93/71 (78) Pulse Ox 93 94 95 10/30/18 15:30 B/P (MAP) 103/69 (80) Physical Exam General Appearance: The patient is alert, has no immediate need for airway protection and no signs of toxicity. She appears to be in mild distress. Eyes: Pupils equal and round no pallor or injection. ENT, Mouth: Mucous membranes are moist. Respiratory: There are no retractions, lungs are clear to auscultation. Cardiovascular: Regular rate and rhythm. Gastrointestinal: There is epigastric tenderness with palpation. G-tube is in place with no surrounding erythema or discharge. No abdominal distention noted. Normal bowel sounds in all 4 quadrants. Well healing surgical incisions noted. No rebound or guarding is present. Skin: Warm and dry, no rashes. Musculoskeletal: Neck is supple non tender. Extremities are nontender, nonswollen and have full range of motion. DIFFERENTIAL DIAGNOSIS: After history and physical exam differential diagnosis was considered for abdominal pain including but not limited to appendicitis, cholecystitis, gastritis and urinary tract infection. Medical Decision Making Data Points Result Diagram: 10/30/18 1356 10/30/18 1356 Laboratory Hematology Test 10/30/18 13:56 Red Blood Count 4.48 M/uL (4.17-5.56) Mean Corpuscular Volume 79.0 fL (80.0-96.0) Mean Corpuscular Hemoglobin 25.8 pg (26.0-33.0) Mean Corpuscular Hemoglobin Concent 32.7 g/dL (32.0-36.0) Red Cell Distribution Width 16.9 % (11.5-14.5) Mean Platelet Volume 7.9 fL (7.2-11.1) Neutrophils (%) (Auto) 53.8 % (39.4-72.5) Lymphocytes (%) (Auto) 35.6 % (17.6-49.6) Monocytes (%) (Auto) 6.9 % (4.1-12.4) Eosinophils (%) (Auto) 2.3 % (0.4-6.7) Basophils (%) (Auto) 1.4 % (0.3-1.4) Nucleated RBC Relative Count (auto) 0.1 /100WBC Neutrophils # (Auto) 3.2 K/uL (2.0-7.4) Lymphocytes # (Auto) 2.1 K/uL (1.3-3.6) Monocytes # (Auto) 0.4 K/uL (0.3-1.0) Eosinophils # (Auto) 0.1 K/uL (0.0-0.5) Basophils # (Auto) 0.1 K/uL (0.0-0.1) Nucleated RBC Absolute Count (auto) 0.01 K/uL Sodium Level 137 mmol/L (137-145) Potassium Level 3.9 mmol/L (3.5-5.0) Chloride Level 107 mmol/L (98-107) Carbon Dioxide Level 21 mmol/L (22-31) Blood Urea Nitrogen 12 mg/dl (7-18) Creatinine 0.70 mg/dl (0.52-1.04) Glomerular Filtration Rate Calc > 60.0 Random Glucose 93 mg/dl (75-110) Calcium Level 8.8 mg/dl (8.4-10.2) Total Bilirubin 0.1 mg/dl (0.2-1.3) Aspartate Amino Transf (AST/SGOT) 17 U/L (0-35) Alanine Aminotransferase (ALT/SGPT) 28 U/L (0-56) Alkaline Phosphatase 186 U/L (0-126) Total Protein 6.7 g/dl (6.3-8.2) Albumin 3.5 g/dl (3.5-5.0) Lipase 112 U/L (23-300) Chemistry Test 10/30/18 13:56 White Blood Count 6.0 k/uL (4.5-11.0) Red Blood Count 4.48 M/uL (4.17-5.56) Hemoglobin 11.6 g/dL (12.0-16.0) Hematocrit 35.4 % (34.0-47.0) Mean Corpuscular Volume 79.0 fL (80.0-96.0) Mean Corpuscular Hemoglobin 25.8 pg (26.0-33.0) Mean Corpuscular Hemoglobin Concent 32.7 g/dL (32.0-36.0) Red Cell Distribution Width 16.9 % (11.5-14.5) Platelet Count 431 K/uL (150-450) Mean Platelet Volume 7.9 fL (7.2-11.1) Neutrophils (%) (Auto) 53.8 % (39.4-72.5) Lymphocytes (%) (Auto) 35.6 % (17.6-49.6) Monocytes (%) (Auto) 6.9 % (4.1-12.4) Eosinophils (%) (Auto) 2.3 % (0.4-6.7) Basophils (%) (Auto) 1.4 % (0.3-1.4) Nucleated RBC Relative Count (auto) 0.1 /100WBC Neutrophils # (Auto) 3.2 K/uL (2.0-7.4) Lymphocytes # (Auto) 2.1 K/uL (1.3-3.6) Monocytes # (Auto) 0.4 K/uL (0.3-1.0) Eosinophils # (Auto) 0.1 K/uL (0.0-0.5) Basophils # (Auto) 0.1 K/uL (0.0-0.1) Nucleated RBC Absolute Count (auto) 0.01 K/uL Glomerular Filtration Rate Calc > 60.0 Calcium Level 8.8 mg/dl (8.4-10.2) Total Bilirubin 0.1 mg/dl (0.2-1.3) Aspartate Amino Transf (AST/SGOT) 17 U/L (0-35) Alanine Aminotransferase (ALT/SGPT) 28 U/L (0-56) Alkaline Phosphatase 186 U/L (0-126) Total Protein 6.7 g/dl (6.3-8.2) Albumin 3.5 g/dl (3.5-5.0) Lipase 112 U/L (23-300) ED Course/Re-evaluation Clinical Indication for ER IV: Hydration ED Course Patient given 1 L normal saline bolus, 4 mg IV Zofran, 4 mg IV morphine. 10/30/2018 4:14:51 pm - reviewed all labs and imaging with patient. There appears to be no findings on CT that her concern. G-tube appears to be in place and well-positioned with no surrounding fluid. Her labs are essentially normal. Discussed all this with patient. Advise her to follow up with her surgeon in 2-3 days. She is comfortable with this plan. Decision to Disposition Date: Oct 30, 2018 Decision to Disposition Time: 16:14 Depart Departure Latest Vital Signs Vital Signs Date Time Temp Pulse Resp B/P (MAP) Pulse Ox O2 Delivery O2 Flow Rate FiO2 10/30/18 15:30 103/69 (80) 10/30/18 15:19 95 95 10/30/18 13:44 28 10/30/18 13:26 98.7 Room Air Impression: Primary Impression: Abdominal pain Condition: Improved Disposition: HOME OR SELF-CARE Referrals: PAM BLACKMON MD (PCP) Patient Instructions: Abdominal Pain (ED) Additional Instructions: Stay well-hydrated. Follow-up with her general surgeon and primary care provider in 2-3 days. If having any worsening or concerning symptoms may return to the emergency department. Problem Qualifiers Primary Impression: Abdominal pain Abdominal location: epigastric Qualified Codes: R10.13 - Epigastric pain MICHAEL ERICKSON PA-C Oct 30, 2018 15:34
[2018-10-30] MEDS ORDERED: HYDROMORPHONE HCL 1 MG/ML SYRINGE IVP ONE (15:45)
--- NOTE | 2018-10-30 15:59 | RADIOLOGY IMAGING REPORT ---
FACILITY: [facility] PATIENT NAME: Arelis Ryan : 1985 MR: [id number] V: [id number] EXAM DATE: ORDERING PHYSICIAN: MICHAEL ERICKSON TECHNOLOGIST: Location: [facility] - [place] Patient: Arelis Ryan : 1985 Visit/Account:[id number] Date of Sevice: 10/30/2018 CT abdomen with IV contrast CT pelvis with IV contrast History: Abdominal pain. Recent gastrostomy tube placement. COMPARISON STUDIES: CT abdomen and pelvis 09/07/2018, 10/03/2017. TECHNIQUE: Axial CT images were obtained through the abdomen and pelvis during injection of nonioni c iodinated intravenous contrast. Reformatted coronal and sagittal images were also obtained. Contrast: 75 ml of Isovue-370 IV contrast. One of the following dose optimization techniques was utilized in the performance of this exam: Autom ated exposure control; adjustment of the mA and/or kV according to the patient's size; or use of an i terative reconstruction technique. Specific details can be referenced in the facility's radiology C T exam operational policy. FINDINGS: Chest bases: Negative Liver: Normal. Gallbladder and bile ducts: Cholecystectomy. Extrahepatic bile duct is generous, unchanged. Spleen: size is normal. Pancreas: negative Adrenal glands: negative Kidneys: negative Pelvic structures: Uterus is anteverted. Ovaries are unremarkable. Bowel and mesenteries: Appropriate position of the chest ostomy tube . No significant fluid is seen along the gastrostomy tube tract. Miriam-en-Y gastroplasty. Jejunum at the jejunojejunostomy is distend ed to a diameter of 4.5 cm, unchanged. Small bowel and colon elsewhere are unremarkable. Prior append ectomy. Ascites: None Vessels: negative Musculoskeletal: Negative Body wall: Two small supraumbilical ventral hernias contain omentum, unchanged. Lymph node assessment: negative IMPRESSION: 1. No CT finding to explain abdominal pain. 2. Satisfactory position of the gastrostomy tube. Report Dictated By: Joy Armstrong MD at 10/30/2018 3:22 PM Report E-Signed By: Joy Armstrong MD at 10/30/2018 3:55 PM WSN:[id number]
[2018-10-30 16:00] VITALS: BP 100/64
== END 2018-10-30 16:25 | disposition home or self-care (01) ==
LOC: ER 13:27
DX: R10.13 Epigastric pain (principal); Z93.1 Gastrostomy status
CPT/HCPCS: 74177; 83690; 85025; 96361; 96374; 96375; 99284; J1170; J2270; J2405; J7030; Q9967; 82040; 82247; 82310; 82374; 82435; 82565; 82947; 84075; 84132; 84155; 84295; 84450; 84460; 84520

== ENCOUNTER 2018-11-17 13:58 | Emergency (ER) | payer SELFPAY ==
[~2018-11-17 13:58] MED LIST changes: +ONDA4TAB9 PO; +OXYC-373 PO
--- NOTE | 2018-11-17 14:15 | ER Report ---
History and Physical Time Seen By MD: 14:15 Hx. of Stated Complaint: pt reports partial bowel resection in with feeding tube placed. abdo pain and nausea and diarrhea since, worse past 5 days. HPI/ROS CHIEF COMPLAINT: Abdominal pain HISTORY OF PRESENT ILLNESS: 33-year-old female patient presents to emergency room with complaint of abdominal pain. Patient states that she had a bowel resection done in September. She states that that time a feeding tube was placed. Patient states that she has had significant amounts of pain since then. She states that she has been very nauseated. She states she's had a discharge from her feeding tube as well as discharge from around the feeding tube. Patient states that she's had chills although she denies having any fevers. Patient states there is nothing seems to help with her pain. Patient states that she follow-up with her surgeon approximately one week ago at that time she was told that she was healing properly. REVIEW OF SYSTEMS: Respiratory: No cough, no dyspnea. Cardiovascular: No chest pain, no palpitations. Gastrointestinal: As noted above Musculoskeletal: No back pain. Allergies: Coded Allergies: ketorolac (Verified Allergy, Intermediate, 10/30/18) tramadol (Verified Allergy, Unknown, 10/30/18) SEIZURES Uncoded Allergies: HAYFEVER CATS (Allergy, Mild, SINUS CONGESTION, 04/17/08) Home Meds Reported Medications Albuterol Sulfate (PROVENTIL HFA) 6.7 Gm Inh, 1-2 PUFF INH 3-4XD PRN for shortness of breath, INH 02/24/18 Discontinued Reported Medications Oxycodone Hcl/Acetaminophen (OXYCODONE-ACETAMINOPHEN 5-325) 1 Each Tablet, 2 EACH PO Q4-6H PRN for PAIN, TAB 10/30/18 Lorazepam (ATIVAN) 1 Mg Tablet, 1 MG PO Q4-6H PRN for ANXIETY 10/30/18 Ondansetron 4 Mg Odt (ONDANSETRON 4 MG ODT) 4 Mg Tab.rapdis, 4 MG PO Q4-6H PRN for NAUSEA, TAB 10/30/18 Discontinued Scripts Promethazine Hcl (PROMETHAZINE HCL) 25 Mg Tablet, 25 MG PO Q8H PRN for NAUSEA/VOMITING, #12 TAB Prov:BRUNO VALDIVIA 11/17/18 Hydrocodone Bit/Acetaminophen (HYDROCODON-ACETAMINOPHEN 5-325) 1 Each Tablet, 1 EACH PO Q4-6H PRN for PAIN, #6 TAB Prov:BRUNO VALDIVIA [employer]CH[employer]ISING LEAD 11/17/18 Past Medical/Surgical History Patient has a past medical history of seizures, palpitations, hypertension, asthma, gastric bypass, cholecystitis, right arm fracture, anxiety. Patient has a surgical history of tonsillectomy, right wrist surgery, bowel surgery, cholecystectomy, appendectomy, gastric bypass. Patient has a family medical history of cancer, stroke, diabetes, psychiatric problems. Reviewed Nurses Notes: Yes Hx Smoking: Yes Smoking Status: Current: Every Day Smoker Exposure to Second Hand Smoke?: Yes Hx Substance Use Disorder: Yes (claims no substance use/abuse) Hx Alcohol Use: No (claims no alcohol consumption) Constitutional Vital Sign - Last 24 Hours 11/17/18 11/17/18 11/17/18 11/17/18 13:58 14:07 14:08 14:13 Temp 98.2 Pulse ??? 100 102 Resp 18 B/P (MAP) 118/92 (101) 118/92 Pulse Ox 99 97 O2 Delivery Room Air 11/17/18 11/17/18 11/17/18 11/17/18 14:20 14:28 14:40 14:43 Pulse 89 86 B/P (MAP) 124/86 (99) 112/80 (91) Pulse Ox 79 99 11/17/18 11/17/18 11/17/18 11/17/18 14:58 15:00 15:13 15:20 Pulse 73 ??? B/P (MAP) 111/80 (90) 115/80 (92) Pulse Ox 98 11/17/18 11/17/18 11/17/18 11/17/18 15:28 15:40 15:43 15:48 Pulse 70 71 68 B/P (MAP) 98/67 (77) Pulse Ox 99 95 100 11/17/18 11/17/18 11/17/18 11/17/18 16:00 16:03 16:18 16:20 Pulse 80 79 B/P (MAP) 143/101 (115) 115/71 (86) Pulse Ox 99 95 11/17/18 16:23 B/P (MAP) 111/75 (87) Physical Exam General Appearance: The patient is alert, has no immediate need for airway protection and no current signs of toxicity. ENT: Tympanic membranes are pearly-sloan, auditory canals are patent, mixed membranes are moist. Respiratory: Chest is non tender, lungs are clear to auscultation. Cardiac: regular rate and rhythm Gastrointestinal: Abdomen is soft and tender in the right upper and lower quadrants, no masses, bowel sounds normal. Patient has no drainage from around the G-tube, there is no erythema or redness noted. Musculoskeletal: Neck: Neck is supple and non tender. Extremities have full range of motion and are non tender. Skin: No rashes or lesions. DIFFERENTIAL DIAGNOSIS: After history and physical exam differential diagnosis was considered for abdominal pain including but not limited to appendicitis, cholecystitis, gastritis and urinary tract infection. Medical Decision Making Data Points Result Diagram: 11/17/18 1439 11/17/18 1439 Laboratory Hematology Test 11/17/18 14:39 11/17/18 17:00 Red Blood Count 4.64 M/uL (4.17-5.56) Mean Corpuscular Volume 78.1 fL (80.0-96.0) Mean Corpuscular Hemoglobin 25.1 pg (26.0-33.0) Mean Corpuscular Hemoglobin Concent 32.1 g/dL (32.0-36.0) Red Cell Distribution Width 17.8 % (11.5-14.5) Mean Platelet Volume 8.3 fL (7.2-11.1) Neutrophils (%) (Auto) 50.5 % (39.4-72.5) Lymphocytes (%) (Auto) 40.0 % (17.6-49.6) Monocytes (%) (Auto) 8.1 % (4.1-12.4) Eosinophils (%) (Auto) 0.7 % (0.4-6.7) Basophils (%) (Auto) 0.7 % (0.3-1.4) Nucleated RBC Relative Count (auto) 0.0 /100WBC Neutrophils # (Auto) 3.2 K/uL (2.0-7.4) Lymphocytes # (Auto) 2.5 K/uL (1.3-3.6) Monocytes # (Auto) 0.5 K/uL (0.3-1.0) Eosinophils # (Auto) 0.0 K/uL (0.0-0.5) Basophils # (Auto) 0.0 K/uL (0.0-0.1) Nucleated RBC Absolute Count (auto) 0.00 K/uL Sodium Level 142 mmol/L (137-145) Potassium Level 3.4 mmol/L (3.5-5.0) Chloride Level 114 mmol/L (98-107) Carbon Dioxide Level 20 mmol/L (22-31) Blood Urea Nitrogen 9 mg/dl (7-18) Creatinine 0.60 mg/dl (0.52-1.04) Glomerular Filtration Rate Calc > 60.0 Random Glucose 101 mg/dl (75-110) Calcium Level 8.8 mg/dl (8.4-10.2) Total Bilirubin 0.2 mg/dl (0.2-1.3) Aspartate Amino Transf (AST/SGOT) 35 U/L (0-35) Alanine Aminotransferase (ALT/SGPT) 57 U/L (0-56) Alkaline Phosphatase 167 U/L (0-126) C-Reactive Protein < 0.5 mg/dl (<1.0) Total Protein 6.6 g/dl (6.3-8.2) Albumin 3.6 g/dl (3.5-5.0) Amylase Level 49 U/L (0-110) Lipase 200 U/L (23-300) Urine Color Yellow Urine Clarity Clear Urine pH 7.0 pH (4.8-9.5) Urine Specific [place] 1.005 Urine Protein Negative mg/dL (NEGATIVE) Urine Glucose (UA) Negative mg/dL (NEGATIVE) Urine Ketones 20 mg/dL (NEGATIVE) Urine Blood Negative (NEGATIVE) Urine Nitrite Negative (NEGATIVE) Urine Bilirubin Negative (NEGATIVE) Urine Urobilinogen 4.0 mg/dL (0.2-1.9) Urine Leukocyte Esterase Negative (NEGATIVE) Urine RBC None /HPF (0-2/HPF) Urine WBC 2 /HPF (0-5/HPF) Urine Squamous Epithelial Cells Many /LPF (</=FEW) Urine Bacteria Negative /HPF (NONE-FEW) Urine Mucus None /HPF (NONE-FEW) Chemistry Test 11/17/18 14:39 11/17/18 17:00 White Blood Count 6.3 k/uL (4.5-11.0) Red Blood Count 4.64 M/uL (4.17-5.56) Hemoglobin 11.6 g/dL (12.0-16.0) Hematocrit 36.2 % (34.0-47.0) Mean Corpuscular Volume 78.1 fL (80.0-96.0) Mean Corpuscular Hemoglobin 25.1 pg (26.0-33.0) Mean Corpuscular Hemoglobin Concent 32.1 g/dL (32.0-36.0) Red Cell Distribution Width 17.8 % (11.5-14.5) Platelet Count 452 K/uL (150-450) Mean Platelet Volume 8.3 fL (7.2-11.1) Neutrophils (%) (Auto) 50.5 % (39.4-72.5) Lymphocytes (%) (Auto) 40.0 % (17.6-49.6) Monocytes (%) (Auto) 8.1 % (4.1-12.4) Eosinophils (%) (Auto) 0.7 % (0.4-6.7) Basophils (%) (Auto) 0.7 % (0.3-1.4) Nucleated RBC Relative Count (auto) 0.0 /100WBC Neutrophils # (Auto) 3.2 K/uL (2.0-7.4) Lymphocytes # (Auto) 2.5 K/uL (1.3-3.6) Monocytes # (Auto) 0.5 K/uL (0.3-1.0) Eosinophils # (Auto) 0.0 K/uL (0.0-0.5) Basophils # (Auto) 0.0 K/uL (0.0-0.1) Nucleated RBC Absolute Count (auto) 0.00 K/uL Glomerular Filtration Rate Calc > 60.0 Calcium Level 8.8 mg/dl (8.4-10.2) Total Bilirubin 0.2 mg/dl (0.2-1.3) Aspartate Amino Transf (AST/SGOT) 35 U/L (0-35) Alanine Aminotransferase (ALT/SGPT) 57 U/L (0-56) Alkaline Phosphatase 167 U/L (0-126) C-Reactive Protein < 0.5 mg/dl (<1.0) Total Protein 6.6 g/dl (6.3-8.2) Albumin 3.6 g/dl (3.5-5.0) Amylase Level 49 U/L (0-110) Lipase 200 U/L (23-300) Urine Color Yellow Urine Clarity Clear Urine pH 7.0 pH (4.8-9.5) Urine Specific [place] 1.005 Urine Protein Negative mg/dL (NEGATIVE) Urine Glucose (UA) Negative mg/dL (NEGATIVE) Urine Ketones 20 mg/dL (NEGATIVE) Urine Blood Negative (NEGATIVE) Urine Nitrite Negative (NEGATIVE) Urine Bilirubin Negative (NEGATIVE) Urine Urobilinogen 4.0 mg/dL (0.2-1.9) Urine Leukocyte Esterase Negative (NEGATIVE) Urine RBC None /HPF (0-2/HPF) Urine WBC 2 /HPF (0-5/HPF) Urine Squamous Epithelial Cells Many /LPF (</=FEW) Urine Bacteria Negative /HPF (NONE-FEW) Urine Mucus None /HPF (NONE-FEW) Urinalysis Test 11/17/18 17:00 Urine Color Yellow Urine Clarity Clear Urine pH 7.0 pH (4.8-9.5) Urine Specific [place] 1.005 Urine Protein Negative mg/dL (NEGATIVE) Urine Glucose (UA) Negative mg/dL (NEGATIVE) Urine Ketones 20 mg/dL (NEGATIVE) Urine Blood Negative (NEGATIVE) Urine Nitrite Negative (NEGATIVE) Urine Bilirubin Negative (NEGATIVE) Urine Urobilinogen 4.0 mg/dL (0.2-1.9) Urine Leukocyte Esterase Negative (NEGATIVE) Urine RBC None /HPF (0-2/HPF) Urine WBC 2 /HPF (0-5/HPF) Urine Squamous Epithelial Cells Many /LPF (</=FEW) Urine Bacteria Negative /HPF (NONE-FEW) Urine Mucus None /HPF (NONE-FEW) EKG/Imaging Imaging CT abdomen and pelvis with IV contrast Indication: Abdominal pain. Comparison: 10/30/2018.. Technique: Axial CT images were obtained through the abdomen and pelvis during injection of nonionic iodinated intravenous contrast. Reformatted coronal and sagittal images were also obtained. One of the following dose optimization techniques was utilized in the performance of this exam: Automated exposure control; adjustment of the mA and/or kV according to the patient's size; or use of an iterative reconstruction technique. Specific details can be referenced in the facility's radiology CT exam operational policy. Contrast: 75 ml of Isovue-370 IV contrast. Findings: Lower lung isidro: Limited views lower lung field are unremarkable. Liver: There are peripheral heterogeneous areas in the right lobe liver without focal abnormality appreciated. The vessels still coarse through this area. This likely represents transient hepatic attenuation difference. There is no portal vein thrombosis. There is no defined lesion. Focal fat seen along the falciform ligament and is stable. The vasculature is patent. Biliary: Status post cholecystectomy. The biliary system is unremarkable p ostcholecystectomy and unchanged. Pancreas: No focal abnormality. Spleen: Normal appearance. Adrenal glands: Unremarkable. Kidneys / retroperitoneum: No evidence of nephrolithiasis or hydronephrosis. No focal normality. Bowel / peritoneum / mesenteries: Colon shows no focal normality with some po rtions being decompressed. The small bowel shows no focal normality or obstruction. Postsurgical changes to the left small bowel without sequelae and improved from previous. Status post appendectomy. The stomach shows a percutaneous gastrostomy tube in place without other focal abnormality. No free air, free fluid, fluid collections or areas of inflammation. Lymph node assessment: No pathologic adenopathy identified. Pelvic structures: Appear unremarkable. Vessels: No significant atherosclerotic calcifications seen throughout a nonaneurysmal abdominal aorta and branches. Musculoskeletal / Body wall: No acute or aggressive osseous abnormality. IMPRESSION: 1. No acute intra-abdominal abnormality 2. Other chronic findings as above. Report Dictated By: Reynold Douglas at 11/17/2018 3:27 PM Report E-Signed By: Reynold Douglas at 11/17/2018 3:42 PM ED Course/Re-evaluation ED Course Patient was admitted to an exam room, history and physical were obtained. Differential diagnoses were considered. On examination lungs are clear, heart is regular, abdomen is soft and tender. I did evaluate the feeding tube. The skin around that did not appear erythematous, there is no bleeding, there is no active drainage. A CBC, CMP, urinalysis were obtained. A CT scan of the abdomen and pelvis was done. Labs were negative. Patient has chronically elevated liver enzymes, however does appear better than it was last time she had blood work done a few weeks ago. Patient did receive a liter of normal saline, she also received 4 mg of morphine and [address] scan of abdomen and pelvis was done and showed no acute findings. Upon returning from CAT scan patient is complaining about more pain. I did go in and talk with her and she did receive a dose of Phenergan 12.5mg as well as 2 more milligrams of morphine. I discussed the findings of the CT scan and the lab work with the patient. As of this time there are no acute findings to explain her pain. As a result of that we did discuss options. We will send her home with a limited supply of pain medication. She is to rest and limit activity by pain. I would like her to follow-up with her surgeon. Patient states that she is not happy with her surgeon. As result I would recommend that she follow-up with bariatric surgeon in [place]. Patient states that she is very unhappy about not finding anything wrong. Patient states that she would like to refuse being discharged. I discussed with patient that I feel that the lab results are normal and the imaging results are normal. That the CT scan is very good for looking for inflammation and infectious processes in the abdomen. As a result I did not have any reason to admit the patient to the hospital. Patient verbalized understanding. I did encourage her to follow-up with bariatric surgery in [place]. Patient verbalized understanding. A few min utes later nurse came and got me to come talk with the family. The family was concerned about her being discharged home. They state that they're concerned there is something wrong with her and that our tests or not finding it. The states that he feels that the bariatric surgeon in [place] trying to kill her. He is concerned that she is having this pain and nobody has found a reason as to the cause of her pain. He states he is frustrated because every provider that they have seen has referred them back to her surgeon. I informed them that when someone perform surgery that they typically have a plan for follow-up. And we do not want to go in an altered the plan as it may not have the full understanding of what the surgeon is trying to do. I informed them that if they would like a second opinion that that was the very reason I wanted them to follow-up with the bariatric surgeon in [place]. He is concerned that the bariatric surgeon does not do G-tubes. I recommend that they follow up with a electronics parts sales representative who comes town and they can call over to the medical office building and trying get an appointment. The patient's states that they might as well go as "they don't want you here". Patient will be discharged home at this time. Decision to Disposition Date: Nov 17, 2018 Decision to Disposition Time: 16:16 Depart Departure Latest Vital Signs Vital Signs Date Time Temp Pulse Resp B/P (MAP) Pulse Ox O2 Delivery O2 Flow Rate FiO2 11/17/18 16:23 111/75 (87) 11/17/18 16:18 79 95 11/17/18 14:08 98.2 18 Room Air Impression: Primary Impression: Abdominal pain Condition: Improved Disposition: HOME OR SELF-CARE Referrals: PAM BLACKMON MD (PCP) Patient Instructions: Abdominal Pain (ED) Additional Instructions: Limit activity by pain. Take the medication as prescribed. Follow up with a bariatric surgeon, if you are unable to and you need more pain medication follow up with your primary care provider. Return to the ER if condition worsens. [facility] [address] [place] [address] Problem Qualifiers Primary Impression: Abdominal pain Abdominal location: generalized Qualified Codes: R10.84 - Generalized abdominal pain BRUNO VALDIVIA Nov 17, 2018 14:15
[2018-11-17] MEDS ORDERED: NS(*) 0.9% 1000 ML BAG 1,000 ML IV ONE (14:23)
[2018-11-17] MEDS ORDERED: MORPHINE 2 MG/ML SYR IVP ONE ×2 (14:25→15:30)
[2018-11-17] MEDS ORDERED: ONDANSETRON 4 MG/2 ML VIAL IVP ONE (14:25)
[2018-11-17 14:48] LABS: PLATELET COUNT, AUTOMATED 452 K/uL (150-450)
[2018-11-17] MEDS ORDERED: IOPAMIDOL 76% 75 ML INFUS BTL 75 ML ONE (15:07)
[2018-11-17] MEDS ORDERED: PROMETHAZINE 25 MG/ML 1 ML AMP IVP ONE (15:30)
--- NOTE | 2018-11-17 15:47 | RADIOLOGY IMAGING REPORT ---
FACILITY: [facility] PATIENT NAME: Arelis Ryan : 1985 MR: [id number] V: [id number] EXAM DATE: ORDERING PHYSICIAN: BRUNO VALDIVIA TECHNOLOGIST: Location: [facility] Patient: Arelis Ryan : 1985 Visit/Account:[id number] Date of Sevice: 11/17/2018 CT abdomen and pelvis with IV contrast Indication: Abdominal pain. Comparison: 10/30/2018.. Technique: Axial CT images were obtained through the abdomen and pelvis during injection of nonioni c iodinated intravenous contrast. Reformatted coronal and sagittal images were also obtained. One of the following dose optimization techniques was utilized in the performance of this exam: Autom ated exposure control; adjustment of the mA and/or kV according to the patient's size; or use of an i terative reconstruction technique. Specific details can be referenced in the facility's radiology C T exam operational policy. Contrast: 75 ml of Isovue-370 IV contrast. Findings: Lower lung isidro: Limited views lower lung field are unremarkable. Liver: There are peripheral heterogeneous areas in the right lobe liver without focal abnormality lizzie reciated. The vessels still coarse through this area. This likely represents transient hepatic atte nuation difference. There is no portal vein thrombosis. There is no defined lesion. Focal fat seen along the falciform ligament and is stable. The vasculature is patent. Biliary: Status post cholecystectomy. The biliary system is unremarkable postcholecystectomy and unc hanged. Pancreas: No focal abnormality. Spleen: Normal appearance. Adrenal glands: Unremarkable. Kidneys / retroperitoneum: No evidence of nephrolithiasis or hydronephrosis. No focal normality. Bowel / peritoneum / mesenteries: Colon shows no focal normality with some portions being decompresse d. The small bowel shows no focal normality or obstruction. Postsurgical changes to the left small bowel without sequelae and improved from previous. Status post appendectomy. The stomach shows a pe rcutaneous gastrostomy tube in place without other focal abnormality. No free air, free fluid, fluid collections or areas of inflammation. Lymph node assessment: No pathologic adenopathy identified. Pelvic structures: Appear unremarkable. Vessels: No significant atherosclerotic calcifications seen throughout a nonaneurysmal abdominal aort a and branches. Musculoskeletal / Body wall: No acute or aggressive osseous abnormality. IMPRESSION: 1. No acute intra-abdominal abnormality 2. Other chronic findings as above. Report Dictated By: Reynold Douglas at 11/17/2018 3:27 PM Report E-Signed By: Reynold Douglas at 11/17/2018 3:42 PM WSN:[email or web address]
[2018-11-17] MEDS ORDERED: PROM-110 PO (16:13)
[2018-11-17] MEDS ORDERED: HYDR-385 PO (16:13)
[2018-11-17 16:23] VITALS: BP 111/75
== END 2018-11-17 16:32 | disposition home or self-care (01) ==
LOC: ER 14:02
DX: R10.84 Generalized abdominal pain (principal)
CPT/HCPCS: 74177; 81001; 82150; 83690; 85025; 86140; 96361; 96374; 96375; 96376; 99284; J2270; J2405; J2550; J7030; Q9967; 82040; 82247; 82310; 82374; 82435; 82565; 82947; 84075; 84132; 84155; 84295; 84450; 84460; 84520

== ENCOUNTER → 2018-12-14 | Outpatient (REF) | payer MEDICAID ==
[~2018-12-14] MED LIST changes: +HYDR-385 PO
== END ==
LOC: ZZSTITCHES 13:52
PROVIDERS: ATTEND Physician Assistant
DX: R10.84 Generalized abdominal pain (principal)
CPT/HCPCS: 81001

== ENCOUNTER 2018-12-18 09:57 | Emergency (ER) | payer MEDICAID ==
--- NOTE | 2018-12-18 10:19 | ER Report ---
History and Physical Time Seen By MD: 10:19 Hx. of Stated Complaint: Pt. here with RUQ pain. Dry heaving, can't keep anything down. Pt. had recent intusuception surgery in September, and every since then she has been having pain. CT scans have all been negative, per patient. Still having symptoms of nausea/vomiting/abdominal pain. Pain 8/10. Afebrile. HPI/ROS CHIEF COMPLAINT: Right upper quadrant abdominal pain, vomiting HISTORY OF PRESENT ILLNESS: Patient is a 33-year-old female who presents emergency Department with recurrence of right upper quadrant abdominal pain along with vomiting. The electronic medical record was reviewed from the most recent visit which was approximately one month ago at which time she had normal blood work with chronic elevation of her liver transaminases but also a CT that showed no acute findings which is chronic changes. Patient was unhappy with her care at that point feeling that she should've been admitted. She also expressed some concern with her "bariatric surgeon in [place]". She did prior to this ER visit see Dr. Jeremy Townsend general surgery request removal of her G-tube. When this visit he apparently explained to her that he could not remove the G- tube as it would go against what the surgeon was trying to achieve purchase to have her gained some weight. Further since she was seen by bariatric surgeon Vu of her surgical care would be required to be followed up with the bariatric surgeon. Patient states that she is basically been in excruciating pain since discharge on November 17. She does not feel comfortable following up with her current bariatric surgeon in [place] who is Dr. Call and states that she is in the process of trying to find a neurosurgeon. She states her last bowel movement was today and was normal. She denies any fevers or chills. She keeps reassuring she feels that something is wrong and "we are not finding it" REVIEW OF SYSTEMS: Constitutional: No fever, no chills. Eyes: No discharge. ENT: No sore throat. Cardiovascular: No chest pain, no palpitations. Respiratory: No cough, no shortness of breath. Gastrointestinal: Severe right upper quadrant abdominal pain with nausea and dry heaving. Genitourinary: No hematuria. Musculoskeletal: No back pain. Skin: No rashes. Neurological: No headache. Allergies: Coded Allergies: ketorolac (Verified Allergy, Intermediate, 12/18/18) tramadol (Verified Allergy, Unknown, 12/18/18) SEIZURES Uncoded Allergies: HAYFEVER CATS (Allergy, Mild, SINUS CONGESTION, 04/17/08) Home Meds Active Scripts Dicyclomine Hcl (DICYCLOMINE HCL) 20 Mg Tablet, 20 MG PO QID for abdominal cramps, #20 TAB 0 Refills Prov:DAI SUBRAMANIAN MD 12/18/18 Promethazine Hcl (PROMETHAZINE HCL) 25 Mg Tablet, 25 MG PO Q8H PRN for NAUSEA/VOMITING, #20 TAB 0 Refills Prov:DAI SUBRAMANIAN MD 12/18/18 Oxycodone Hcl/Acetaminophen (PERCOCET 5-325 MG TABLET) 1 Each Tablet, 1 EACH PO Q4H for PAIN for 7 Days, #42 TAB 0 Refills Prov:DAI SUBRAMANIAN MD 12/18/18 Reported Medications Mirtazapine (MIRTAZAPINE) 15 Mg Tablet, 15 MG PO QHS 12/18/18 Quetiapine Fumarate (QUETIAPINE FUMARATE) 100 Mg Tablet, 50 TAB PO QHS 12/18/18 Lorazepam (LORAZEPAM) 1 Mg Tab 12/18/18 Gabapentin (GABAPENTIN) 600 Mg Tablet 12/18/18 Albuterol Sulfate (PROVENTIL HFA) 6.7 Gm Inh, 1-2 PUFF INH 3-4XD PRN for shortness of breath, INH 02/24/18 Past Medical/Surgical History Patient has a past medical history of seizures, palpitations, hypertension, asthma, gastric bypass, cholecystitis, right arm fracture, anxiety. Patient has a surgical history of tonsillectomy, right wrist surgery, bowel wes chan, cholecystectomy, appendectomy, gastric bypass. Patient has a family medical history of cancer, stroke, diabetes, psychiatric problems. Hx Smoking: Yes Smoking Status: Current: Every Day Smoker Exposure to Second Hand Smoke?: Yes Hx Substance Use Disorder: Yes (claims no substance use/abuse) Hx Alcohol Use: No (claims no alcohol consumption) Constitutional Vital Sign - Last 24 Hours 12/18/18 12/18/18 12/18/18 12/18/18 10:06 10:08 10:27 10:30 Temp 98.2 Pulse 99 77 Resp 20 B/P (MAP) 122/106 (111) 122/106 115/96 (102) Pulse Ox 98 98 O2 Delivery Room Air 12/18/18 12/18/18 12/18/18 12/18/18 10:57 11:02 11:04 11:27 Pulse 64 71 B/P (MAP) 45/30 (35) 115/92 (100) Pulse Ox 99 97 12/18/18 12/18/18 12/18/18 12/18/18 11:30 11:35 12:05 12:35 Pulse 61 59 71 B/P (MAP) 125/99 (108) Pulse Ox 87 98 98 12/18/18 13:05 Pulse 64 B/P (MAP) 124/78 (93) Pulse Ox 93 Physical Exam General/Constitutional: Patient is awake, alert, lying in the position moaning about extreme pain. Head: Normocephalic and atraumatic. Eyes: Conjunctival clear. Sclera are clear and anicteric. Ears:External canals are clear. Tympanic membranes are clear with normal landmarks and light reflex. Nares: No rhinorrhea or bleeding. Turbinates are pink and moist. Oropharyngeal: Mucous membranes are moist. There is no pharyngeal erythema or exudate. There are no palatal petechiae. Uvula is midline and symmetrical. Neck: Supple, no adenopathy. Cardiovascular: Heart is regular rate and rhythm without audible murmurs, rubs or gallops. Pulmonary: Lungs are clear to auscultation bilaterally. There are no wheezes, rales, or rhonchi. Chest rise is symmetrical Abdomen: Soft, patient is tender to the right upper and lower quadrants without appreciable rebound tenderness. She does complain however of diffuse pain with palpation in all quadrants. Extremities: No gross deformities, No peripheral cyanosis. Able to move all 4 extremities. Neuro: Alert and oriented X3, Skin: No rashes, skin is warm dry and well perfused. Medical Decision Making Data Points Result Diagram: 12/18/18 1052 12/18/18 1052 Laboratory Hematology Test 12/18/18 10:52 Red Blood Count 4.41 M/uL (4.17-5.56) Mean Corpuscular Volume 76.9 fL (80.0-96.0) Mean Corpuscular Hemoglobin 24.5 pg (26.0-33.0) Mean Corpuscular Hemoglobin Concent 31.9 g/dL (32.0-36.0) Red Cell Distribution Width 17.8 % (11.5-14.5) Mean Platelet Volume 7.9 fL (7.2-11.1) Neutrophils (%) (Auto) 45.0 % (39.4-72.5) Lymphocytes (%) (Auto) 45.8 % (17.6-49.6) Monocytes (%) (Auto) 6.4 % (4.1-12.4) Eosinophils (%) (Auto) 1.4 % (0.4-6.7) Basophils (%) (Auto) 1.4 % (0.3-1.4) Nucleated RBC Relative Count (auto) 0.1 /100WBC Neutrophils # (Auto) 3.1 K/uL (2.0-7.4) Lymphocytes # (Auto) 3.1 K/uL (1.3-3.6) Monocytes # (Auto) 0.4 K/uL (0.3-1.0) Eosinophils # (Auto) 0.1 K/uL (0.0-0.5) Basophils # (Auto) 0.1 K/uL (0.0-0.1) Nucleated RBC Absolute Count (auto) 0.00 K/uL Sodium Level 140 mmol/L (137-145) Potassium Level 3.7 mmol/L (3.5-5.0) Chloride Level 115 mmol/L (98-107) Carbon Dioxide Level 21 mmol/L (22-31) Blood Urea Nitrogen 9 mg/dl (7-18) Creatinine 0.60 mg/dl (0.52-1.04) Glomerular Filtration Rate Calc > 60.0 Random Glucose 78 mg/dl (75-110) Calcium Level 8.8 mg/dl (8.4-10.2) Total Bilirubin 0.2 mg/dl (0.2-1.3) Aspartate Amino Transf (AST/SGOT) 25 U/L (0-35) Alanine Aminotransferase (ALT/SGPT) 41 U/L (0-56) Alkaline Phosphatase 168 U/L (0-126) Total Protein 6.2 g/dl (6.3-8.2) Albumin 3.2 g/dl (3.5-5.0) Lipase 168 U/L (23-300) Human Chorionic Gonadotropin, Qual Negative (NEGATIVE) Helicobacter pylori IgG Antibody Negative (NEGATIVE) Chemistry Test 12/18/18 10:52 White Blood Count 6.8 k/uL (4.5-11.0) Red Blood Count 4.41 M/uL (4.17-5.56) Hemoglobin 10.8 g/dL (12.0-16.0) Hematocrit 33.9 % (34.0-47.0) Mean Corpuscular Volume 76.9 fL (80.0-96.0) Mean Corpuscular Hemoglobin 24.5 pg (26.0-33.0) Mean Corpuscular Hemoglobin Concent 31.9 g/dL (32.0-36.0) Red Cell Distribution Width 17.8 % (11.5-14.5) Platelet Count 478 K/uL (150-450) Mean Platelet Volume 7.9 fL (7.2-11.1) Neutrophils (%) (Auto) 45.0 % (39.4-72.5) Lymphocytes (%) (Auto) 45.8 % (17.6-49.6) Monocytes (%) (Auto) 6.4 % (4.1-12.4) Eosinophils (%) (Auto) 1.4 % (0.4-6.7) Basophils (%) (Auto) 1.4 % (0.3-1.4) Nucleated RBC Relative Count (auto) 0.1 /100WBC Neutrophils # (Auto) 3.1 K/uL (2.0-7.4) Lymphocytes # (Auto) 3.1 K/uL (1.3-3.6) Monocytes # (Auto) 0.4 K/uL (0.3-1.0) Eosinophils # (Auto) 0.1 K/uL (0.0-0.5) Basophils # (Auto) 0.1 K/uL (0.0-0.1) Nucleated RBC Absolute Count (auto) 0.00 K/uL Glomerular Filtration Rate Calc > 60.0 Calcium Level 8.8 mg/dl (8.4-10.2) Total Bilirubin 0.2 mg/dl (0.2-1.3) Aspartate Amino Transf (AST/SGOT) 25 U/L (0-35) Alanine Aminotransferase (ALT/SGPT) 41 U/L (0-56) Alkaline Phosphatase 168 U/L (0-126) Total Protein 6.2 g/dl (6.3-8.2) Albumin 3.2 g/dl (3.5-5.0) Lipase 168 U/L (23-300) Human Chorionic Gonadotropin, Qual Negative (NEGATIVE) Helicobacter pylori IgG Antibody Negative (NEGATIVE) EKG/Imaging Imaging FACILITY: [facility] - [place] PATIENT NAME: Arelis Ryan : 1985 MR: [id number] V: [id number] EXAM DATE: ORDERING PHYSICIAN: DAI SUBRAMANIAN TECHNOLOGIST: Location: [facility] - [place] Patient: Arelis Ryan : 1985 Visit/Account:[id number] Date of Sevice: 12/18/2018 CT ABDOMEN PELVIS W/ CON HISTORY: Abdomen pain, gastric bypass in 2013, most recent bowel resection September 2018 TECHNIQUE: Following administration of IV contrast contiguous axial images acquired through the abdomen/pelvis. Coronal and sagittal reformatting also performed.Dose Lowering Technique One of the following dose optimization techniques was utilized in the performance of this exam: Automated exposure control; adjustment of the mA and/or kV according to the patient's size; or use of an iterative reconstruction technique. Specific details can be referenced in the facility's radiology CT exam operational policy. CONTRAST: 75 mL Isovue-370 COMPARISON: November 17, 2018 FINDINGS: Visualized lung bases: Negative. Hepatobiliary: There is diffuse hepatic steatosis Spleen: Negative. Adrenals: Negative. Pancreas: Negative. Kidneys ureters or bladder: Negative. Genitalia: There is a small partially calcified mass projecting along the posterior aspect uterus likely a fibroid GI: There postsurgical changes from a gastric bypass. A gastrostomy tube is present. Small bowel anastomoses are again noted left-sided abdomen. Focally patulous of small bowel adjacent to the anastomoses similar to the prior study Vessels/spaces/nodes: There is a small amount of free fluid in the abdomen and pelvis Bones/soft tissues: There is mild anasarca. No aggressive appearing bone lesions are seen Additional findings: None pertinent. IMPRESSION: There post surgical changes from a gastric bypass additional small bowel anastomoses in the left-sided abdomen. Gastrostomy tube again noted Small amount of free fluid in the abdomen and pelvis Mild anasarca Diffuse hepatic steatosis Report Dictated By: Cha Madden MD at 12/18/2018 1:12 PM Report E-Signed By: Cha Madden MD at 12/18/2018 1:21 PM WSN:[facility] ED Course/Re-evaluation Clinical Indication for ER IV: Hydration, IV Access ED Course 12/18/2018 11:19:48 am is difficult and complex patient in that she has had 2 intussusceptions in her lifetime. One that was approximately 2 years ago corrected surgically and after that did well until this past September when she had a 2nd intussusception that was treated at that [facility] and since that time she's had persistent right upper quadrant abdominal pain and dry heaving. She has had at least 2 visits to this emergency department since October most recent was exactly one month ago in November 17. She had a similar presentation at that time. CT scan and blood work were essentially unremarkable for acute pathology. Patient and are feeling frustrated that the patient is not being "taken seriously". She is in the process of care from her current bariatric surgeon and [facility]. He did see Dr. Townsend as an outpatient for request removal of feeding tube. Dr. Townsend and did not remove the feeding tube at that time. In encouraged follow-up with her current surgeon and also stated in his note that if she was unhappy with her current surgeon that he would assist her in finding a new one. The patient has had 2 CT scans since the middle of October 2018 most recent was November 17. I'm concerned about performing subsequent CTA given the high dose of radiation the patient is already received. I'm considering consult and Dr. Townsend to come to the ER for evaluation. And to ask him what imaging studies if any he would eventually recommended. Also had discussion about opiate-induced hypalgesia with this patient. Because patient states she does require heroic doses of narcotic pain medication and seems to have a decreased pain threshold consider trying ketamine for pain and this point. 12/18/2018 12:12:09 pm blood work is unremarkable for acute findings. Speak with Dr. Townsend who is agreed to come down and perform a consult on the patient. He did actually recommend CT scan given her history of bariatric surgery. Patient seems much improved after IV ketamine. We have placed the patient on a ketamine drip and she seems to be doing well in terms of pain. We're awaiting CT scan and evaluation from Dr. Townsend 12/18/2018 2:12:[address] Townsend from general surgery did come down and evaluate the patient personally and had a discussion with the patient. He had approximately a 10 minute discussion about the patient between us. He agrees this patient is complex him a pain management standpoint the patient does clearly have surgical issues in the past. Dr. Townsend pain both to myself as well as the patient that if anything surgical would need to be done it would need to be done by a bariatric surgeon is that his protocol. Patient does have an appointment on December 25 to switch her bariatric surgeon to [facility]. Because of normal blood work and no acute findings on CT scan I find no advantage to admitting the patient here because we would not be either medically or surgically treating her and the risk of hospitalization and development of nosocomial infection is certainly something to consider. Plan at this time will be to discharge the patient home with for pain medications again to discuss this with Dr. Townsend and he does feel that it is appropriate to dispense medications for pain we'll prescribe him oral oxycodone in a 7 day supply along with oral Bentyl and oral Phenergan. Patient is not and she seems to understand that she will require follow-up with bariatric surgery Decision to Disposition Date: Dec 18, 2018 Decision to Disposition Time: 14:11 Depart Departure Latest Vital Signs Vital Signs Date Time Temp Pulse Resp B/P (MAP) Pulse Ox O2 Delivery O2 Flow Rate FiO2 12/18/18 13:05 64 124/78 (93) 93 12/18/18 10:08 98.2 20 Room Air Impression: Primary Impression: Abdominal pain Condition: Condition Unchanged Disposition: HOME OR SELF-CARE Referrals: PAM BLACKMON MD (PCP) New Scripts Dicyclomine Hcl (DICYCLOMINE HCL) 20 Mg Tablet 20 MG PO QID for abdominal cramps, #20 TAB 0 Refills Prov: DAI SUBRAMANIAN MD 12/18/18 Promethazine Hcl (PROMETHAZINE HCL) 25 Mg Tablet 25 MG PO Q8H PRN for NAUSEA/VOMITING, #20 TAB 0 Refills Prov: DAI SUBRAMANIAN MD 12/18/18 Oxycodone Hcl/Acetaminophen (PERCOCET 5-325 MG TABLET) 1 Each Tablet 1 EACH PO Q4H for PAIN for 7 Days, #42 TAB 0 Refills Prov: DAI SUBRAMANIAN MD 12/18/18 Patient Instructions: Chronic Abdominal Pain (ED) Additional Instructions: Be sure to keep your appointment with Dr. Armas at [facility] [place] on Dec 25 as scheduled Percocet 5mg 1 tablet by mouth every 4 hours as needed for pain Dicyclomine (Bentyl) 10mg 2 tabs once PRN abdominal pain Phenergan 25mg 1 tablet every 8 hours for nausea Problem Qualifiers Primary Impression: Abdominal pain Abdominal location: right upper quadrant Qualified Codes: R10.11 - Right upper quadrant pain DAI SUBRAMANIAN MD Dec 18, 2018 10:19
[2018-12-18] MEDS ORDERED: NS(*) 0.9% 1000 ML BAG 1,000 ML IV ONE (10:36)
[2018-12-18] MEDS ORDERED: KETAMINE HCL-NS 50 MG/5 ML SYR IVP ONE ×3 (10:40→15:35)
[2018-12-18] MEDS ORDERED: LORazepam 2 MG/ML VIAL IVP ONE (10:40)
[2018-12-18] MEDS ORDERED: PROMETHAZINE 25 MG/ML 1 ML AMP IVP ONE (10:40)
[2018-12-18 11:02] LABS: PLATELET COUNT, AUTOMATED 478 K/uL (150-450)
[2018-12-18] MEDS ORDERED: KETAMINE HCL(*)500MG/5ML VIAL 500 MG in NS(*) 0.9% 500 ML BAG 495 ML IVPB ONE (11:30)
[2018-12-18] MEDS ORDERED: QUET100T PO (12:16)
[2018-12-18] MEDS ORDERED: MIRT-22 PO (12:16)
[2018-12-18] MEDS ORDERED: LOR1 (12:16)
[2018-12-18] MEDS ORDERED: GABA-533 (12:16)
[2018-12-18] MEDS ORDERED: IOPAMIDOL 76% 150 ML INFUS BTL 150 ML ONE (12:44)
[2018-12-18 13:05] VITALS: BP 124/78
--- NOTE | 2018-12-18 13:25 | RADIOLOGY IMAGING REPORT ---
FACILITY: [facility] [place] PATIENT NAME: Arelis Ryan : 1985 MR: [id number] V: [id number] EXAM DATE: ORDERING PHYSICIAN: DAI SUBRAMANIAN TECHNOLOGIST: Location: [facility] [place] Patient: Arelis Ryan : 1985 Visit/Account:[id number] Date of Sevice: 12/18/2018 CT ABDOMEN PELVIS W/ CON HISTORY: Abdomen pain, gastric bypass in 2013, most recent bowel resection September 2018 TECHNIQUE: Following administration of IV contrast contiguous axial images acquired through the abdom en/pelvis. Coronal and sagittal reformatting also performed.Dose Lowering Technique One of the following dose optimization techniques was utilized in the performance of this exam: Autom ated exposure control; adjustment of the mA and/or kV according to the patient's size; or use of an i terative reconstruction technique. Specific details can be referenced in the facility's radiology C T exam operational policy. CONTRAST: 75 mL Isovue-370 COMPARISON: November 17, 2018 FINDINGS: Visualized lung bases: Negative. Hepatobiliary: There is diffuse hepatic steatosis Spleen: Negative. Adrenals: Negative. Pancreas: Negative. Kidneys ureters or bladder: Negative. Genitalia: There is a small partially calcified mass projecting along the posterior aspect uterus li geovanni a fibroid GI: There postsurgical changes from a gastric bypass. A gastrostomy tube is present. Small bowel a nastomoses are again noted left-sided abdomen. Focally patulous of small bowel adjacent to the anast omoses similar to the prior study Vessels/spaces/nodes: There is a small amount of free fluid in the abdomen and pelvis Bones/soft tissues: There is mild anasarca. No aggressive appearing bone lesions are seen Additional findings: None pertinent. IMPRESSION: There post surgical changes from a gastric bypass additional small bowel anastomoses in the left-side d abdomen. Gastrostomy tube again noted Small amount of free fluid in the abdomen and pelvis Mild anasarca Diffuse hepatic steatosis Report Dictated By: Cha Madden MD at 12/18/2018 1:12 PM Report E-Signed By: Cha Madden MD at 12/18/2018 1:21 PM WSN:[email or web address]
[2018-12-18] MEDS ORDERED: PROMETHAZINE HCL 25 MG TAB TH 2 TAB/BOTTLE PO ONE (14:05)
[2018-12-18] MEDS ORDERED: oxyCODONE/ACETAMIN 5/325MG TH 2 TAB/BOTTLE PO ONE (14:05)
[2018-12-18] MEDS ORDERED: DICYCLOMINE HCL 10 MG CAP PO ONE (14:05)
[2018-12-18] MEDS ORDERED: OXYC-865 PO (14:08)
[2018-12-18] MEDS ORDERED: PROM-110 PO (14:08)
[2018-12-18] MEDS ORDERED: DICY20TA70 PO (14:08)
== END 2018-12-18 14:25 | disposition home or self-care (01) ==
LOC: ER 10:18
DX: R10.11 Right upper quadrant pain (principal)
CPT/HCPCS: 74177; 83690; 84703; 85025; 86677; 96361; 96374; 96375; 96376; 99284; J2060; J2550; J3490; J7030; J7040; Q9967; 82040; 82247; 82310; 82374; 82435; 82565; 82947; 84075; 84132; 84155; 84295; 84450; 84460; 84520

== ENCOUNTER → 2018-12-21 | Emergency (ER) | payer MEDICAID ==
[~2018-12-21] MED LIST changes: +ACETAMINOPHEN(*)1000 MG/100 ML 100 ML IVPB ONE; +ATRO/SCOPOL/HYOSCY/PB 5 ML ELX PO ONE; +DICY20TA70 PO; +GABA-533; +LIDOCAINE 2% VISC SLN 15ML UDC PO ONE; +LOR1; +MAG HYD/AL HYD/SIMETH 30ML UDC PO ONE; +MIRT-22 PO; +MORPHINE 10 MG/ML SYR IVP ONE; +MORPHINE 4 MG/ML SDV IVP ONE; +NS(*) 0.9% 1000 ML BAG 1,000 ML IV ONE; +ONDANSETRON 4 MG/2 ML VIAL IVP ONE; +OXYC-865 PO; +PANT40SU3 PO; +PANTOPRAZOLE SOD 40 MG IV VIAL IVP ONE; +PROMETHAZINE 25 MG/ML 1 ML AMP IVP ONE; +QUET100T PO; +SUCR1TAB85 PO
[2018-12-21 12:23] VITALS: BP 122/100
--- NOTE | 2018-12-21 12:24 | ER Report ---
History and Physical Time Seen By MD: 12:24 HPI/ROS CHIEF COMPLAINT: Continued abdominal pain HISTORY OF PRESENT ILLNESS: This is a 33-year-old female who returns to the emergency department for continued abdominal pain. Patient had bariatric surgery in 2013 in [place], had a colon resection in October 2018, she's had continued pain since. She has followed up with gastroenterology and a bariatric specialist in [place], Dr. Armas, she does have a follow-up appointment on Monday, December 25. Patient states that since she was discharged on Monday, she has not been able to urinate, she's had continued nausea and vomiting. She states she try to use her G-tube for the medication administration and states this was unsuccessful. No fevers or chills. No rashes. No headaches. No chest pain or shortness of breath. REVIEW OF SYSTEMS: Constitutional: No fever, no chills. Eyes: No discharge. ENT: No sore throat. Cardiovascular: No chest pain, no palpitations. Respiratory: No cough, no shortness of breath. Gastrointestinal: As above. Genitourinary: As above. Musculoskeletal: No back pain. Skin: No rashes. Neurological: No headache. Allergies: Coded Allergies: ketorolac (Verified Allergy, Intermediate, 12/18/18) tramadol (Verified Allergy, Unknown, 12/18/18) SEIZURES Uncoded Allergies: HAYFEVER CATS (Allergy, Mild, SINUS CONGESTION, 04/17/08) Home Meds Active Scripts Sucralfate (CARAFATE) 1 Gm Tablet, 1 GM PO QID, #60 TAB 0 Refills Take before meals and at bedtime. Crush the tablet and mix with water before taking. Prov:ADELAIDE DE LA PAZ-BC 12/21/18 Pantoprazole Sodium (PROTONIX) 40 Mg , 40 MG PO QDAY for 14 Days, #14 PACK 0 Refills Prov:ADELAIDE DE LA PAZ-BC 12/21/18 Dicyclomine Hcl (DICYCLOMINE HCL) 20 Mg Tablet, 20 MG PO QID for abdominal cramps, #20 TAB 0 Refills Prov:DAI CHAO MD 12/18/18 Promethazine Hcl (PROMETHAZINE HCL) 25 Mg Tablet, 25 MG PO Q8H PRN for NAUSEA/VOMITING, #20 TAB 0 Refills Prov:DAI CHAO MD 12/18/18 Oxycodone Hcl/Acetaminophen (PERCOCET 5-325 MG TABLET) 1 Each Tablet, 1 EACH PO Q4H for PAIN for 7 Days, #42 TAB 0 Refills Prov:DAI CHAO MD 12/18/18 Reported Medications Mirtazapine (MIRTAZAPINE) 15 Mg Tablet, 15 MG PO QHS 12/18/18 Quetiapine Fumarate (QUETIAPINE FUMARATE) 100 Mg Tablet, 50 TAB PO QHS 12/18/18 Lorazepam (LORAZEPAM) 1 Mg Tab 12/18/18 Gabapentin (GABAPENTIN) 600 Mg Tablet 12/18/18 Albuterol Sulfate (PROVENTIL HFA) 6.7 Gm Inh, 1-2 PUFF INH 3-4XD PRN for shortn ess of breath, INH 02/24/18 Past Medical/Surgical History The patient has a past medical and surgical history of seizure, palpitations, borderline hypertension, asthma, pulmonary embolus, gastric bypass, PEG tube, bowel resection 2, cholecystectomy, right arm fracture, ectopic , kidney stones, tonsillectomy, depression, right wrist surgery. Reviewed Nurses Notes: Yes Hx Smoking: Yes Smoking Status: Current: Every Day Smoker Exposure to Second Hand Smoke?: Yes Hx Substance Use Disorder: Yes (claims no substance use/abuse) Hx Alcohol Use: No (claims no alcohol consumption) Constitutional Vital Sign - Last 24 Hours 12/21/18 12/21/18 12/21/18 12/21/18 12:22 12:23 12:47 13:17 Temp 98.5 Pulse 106 101 76 Resp 20 B/P (MAP) 125/100 122/100 (107) Pulse Ox 97 100 96 O2 Delivery Room Air 12/21/18 12/21/18 12/21/18 14:00 14:20 14:40 Pulse 76 79 106 Pulse Ox 92 95 95 Physical Exam General Appearance: The patient is alert, has no immediate need for airway protection and no signs of toxicity, appears very anxious. Eyes: Pupils equal and round no pallor or injection. ENT, Mouth: Mucous membranes are moist. Respiratory: There are no retractions, lungs are clear to auscultation. Cardiovascular: Regular rate and rhythm, no murmurs, clicks or rubs. Gastrointestinal: Abdomen is flat, diffusely tender through all 4 quadrants, no rebound tenderness, normoactive to hyperactive bowel sounds. Neurological: Alert and oriented 4. Moving all extremities. Following all commands. No focal neuro deficits. Skin: Warm and dry, no rashes. G-tube site intact, stoma is showing no signs of erythema or sialitis. No drainage. Musculoskeletal: Neck is supple non tender. Extremities are nontender, nonswollen and have full range of motion. DIFFERENTIAL DIAGNOSIS: After history and physical exam differential diagnosis was considered for abdominal pain in a female including but not limited to ovarian cyst, pelvic inflammatory disease, ovarian torsion, urinary tract infection, and appendicitis. Medical Decision Making Data Points Result Diagram: 12/21/18 1234 12/21/18 1234 Laboratory Hematology Test 12/21/18 12:34 12/21/18 14:51 Red Blood Count 5.11 M/uL (4.17-5.56) Mean Corpuscular Volume 76.8 fL (80.0-96.0) Mean Corpuscular Hemoglobin 24.7 pg (26.0-33.0) Mean Corpuscular Hemoglobin Concent 32.2 g/dL (32.0-36.0) Red Cell Distribution Width 18.1 % (11.5-14.5) Mean Platelet Volume 8.4 fL (7.2-11.1) Neutrophils (%) (Auto) 49.1 % (39.4-72.5) Lymphocytes (%) (Auto) 44.5 % (17.6-49.6) Monocytes (%) (Auto) 4.0 % (4.1-12.4) Eosinophils (%) (Auto) 1.1 % (0.4-6.7) Basophils (%) (Auto) 1.3 % (0.3-1.4) Nucleated RBC Relative Count (auto) 0.1 /100WBC Neutrophils # (Auto) 3.3 K/uL (2.0-7.4) Lymphocytes # (Auto) 3.0 K/uL (1.3-3.6) Monocytes # (Auto) 0.3 K/uL (0.3-1.0) Eosinophils # (Auto) 0.1 K/uL (0.0-0.5) Basophils # (Auto) 0.1 K/uL (0.0-0.1) Nucleated RBC Absolute Count (auto) 0.01 K/uL Sodium Level 138 mmol/L (137-145) Potassium Level 3.6 mmol/L (3.5-5.0) Chloride Level 111 mmol/L (98-107) Carbon Dioxide Level 18 mmol/L (22-31) Blood Urea Nitrogen 11 mg/dl (7-18) Creatinine 0.60 mg/dl (0.52-1.04) Glomerular Filtration Rate Calc > 60.0 Random Glucose 95 mg/dl (75-110) Calcium Level 8.8 mg/dl (8.4-10.2) Total Bilirubin 0.5 mg/dl (0.2-1.3) Aspartate Amino Transf (AST/SGOT) 22 U/L (0-35) Alanine Aminotransferase (ALT/SGPT) 31 U/L (0-56) Alkaline Phosphatase 180 U/L (0-126) Total Protein 7.0 g/dl (6.3-8.2) Albumin 3.9 g/dl (3.5-5.0) Lipase 98 U/L (23-300) Urine Color Yellow Urine Clarity Clear Urine pH 6.0 pH (4.8-9.5) Urine Specific [place] S3 Urine Protein Negative mg/dL (NEGATIVE) Urine Glucose (UA) Negative mg/dL (NEGATIVE) Urine Ketones 80 mg/dL (NEGATIVE) Urine Blood Negative (NEGATIVE) Urine Nitrite Negative (NEGATIVE) Urine Bilirubin Negative (NEGATIVE) Urine Urobilinogen 2.0 mg/dL (0.2-1.9) Urine Leukocyte Esterase Negative (NEGATIVE) Urine RBC None /HPF (0-2/HPF) Urine WBC <1 /HPF (0-5/HPF) Urine Squamous Epithelial Cells Many /LPF (</=FEW) Urine Bacteria Few /HPF (NONE-FEW) Urine Mucus Few /HPF (NONE-FEW) Chemistry Test 12/21/18 12:34 12/21/18 14:51 White Blood Count 6.7 k/uL (4.5-11.0) Red Blood Count 5.11 M/uL (4.17-5.56) Hemoglobin 12.6 g/dL (12.0-16.0) Hematocrit 39.2 % (34.0-47.0) Mean Corpuscular Volume 76.8 fL (80.0-96.0) Mean Corpuscular Hemoglobin 24.7 pg (26.0-33.0) Mean Corpuscular Hemoglobin Concent 32.2 g/dL (32.0-36.0) Red Cell Distribution Width 18.1 % (11.5-14.5) Platelet Count 476 K/uL (150-450) Mean Platelet Volume 8.4 fL (7.2-11.1) Neutrophils (%) (Auto) 49.1 % (39.4-72.5) Lymphocytes (%) (Auto) 44.5 % (17.6-49.6) Monocytes (%) (Auto) 4.0 % (4.1-12.4) Eosinophils (%) (Auto) 1.1 % (0.4-6.7) Basophils (%) (Auto) 1.3 % (0.3-1.4) Nucleated RBC Relative Count (auto) 0.1 /100WBC Neutrophils # (Auto) 3.3 K/uL (2.0-7.4) Lymphocytes # (Auto) 3.0 K/uL (1.3-3.6) Monocytes # (Auto) 0.3 K/uL (0.3-1.0) Eosinophils # (Auto) 0.1 K/uL (0.0-0.5) Basophils # (Auto) 0.1 K/uL (0.0-0.1) Nucleated RBC Absolute Count (auto) 0.01 K/uL Glomerular Filtration Rate Calc > 60.0 Calcium Level 8.8 mg/dl (8.4-10.2) Total Bilirubin 0.5 mg/dl (0.2-1.3) Aspartate Amino Transf (AST/SGOT) 22 U/L (0-35) Alanine Aminotransferase (ALT/SGPT) 31 U/L (0-56) Alkaline Phosphatase 180 U/L (0-126) Total Protein 7.0 g/dl (6.3-8.2) Albumin 3.9 g/dl (3.5-5.0) Lipase 98 U/L (23-300) Urine Color Yellow Urine Clarity Clear Urine pH 6.0 pH (4.8-9.5) Urine Specific [place] S3 Urine Protein Negative mg/dL (NEGATIVE) Urine Glucose (UA) Negative mg/dL (NEGATIVE) Urine Ketones 80 mg/dL (NEGATIVE) Urine Blood Negative (NEGATIVE) Urine Nitrite Negative (NEGATIVE) Urine Bilirubin Negative (NEGATIVE) Urine Urobilinogen 2.0 mg/dL (0.2-1.9) Urine Leukocyte Esterase Negative (NEGATIVE) Urine RBC None /HPF (0-2/HPF) Urine WBC <1 /HPF (0-5/HPF) Urine Squamous Epithelial Cells Many /LPF (</=FEW) Urine Bacteria Few /HPF (NONE-FEW) Urine Mucus Few /HPF (NONE-FEW) Urinalysis Test 12/21/18 14:51 Urine Color Yellow Urine Clarity Clear Urine pH 6.0 pH (4.8-9.5) Urine Specific [place] S3 Urine Protein Negative mg/dL (NEGATIVE) Urine Glucose (UA) Negative mg/dL (NEGATIVE) Urine Ketones 80 mg/dL (NEGATIVE) Urine Blood Negative (NEGATIVE) Urine Nitrite Negative (NEGATIVE) Urine Bilirubin Negative (NEGATIVE) Urine Urobilinogen 2.0 mg/dL (0.2-1.9) Urine Leukocyte Esterase Negative (NEGATIVE) Urine RBC None /HPF (0-2/HPF) Urine WBC <1 /HPF (0-5/HPF) Urine Squamous Epithelial Cells Many /LPF (</=FEW) Urine Bacteria Few /HPF (NONE-FEW) Urine Mucus Few /HPF (NONE-FEW) EKG/Imaging Imaging Location: [facility] Patient: Arelis Ryan : 1985 Visit/Account:[id number] Date of Sevice: 12/21/2018 CT ABDOMEN PELVIS W/ CON HISTORY: Increased abdomen pain TECHNIQUE: Following administration of IV contrast contiguous axial images acquired through the abdomen/pelvis. Coronal and sagittal reformatting also performed.Dose Lowering Technique One of the following dose optimization techniques was utilized in the performance of this exam: Automated exposure control; adjustment of the mA and/or kV according to the patient's size; or use of an iterative re construction technique. Specific details can be referenced in the facility's radiology CT exam operational policy. CONTRAST: 75 mL Isovue-370 COMPARISON: December 18, 2018 FINDINGS: Visualized lung bases: Negative. Hepatobiliary: There is diffuse hepatic steatosis and postsurgical changes from a cholecystectomy. Common bile duct appears dilated up to 1 cm which has increased when compared to the prior study. The duct appears to taper smoothly at the pancreatic head. An obstructing calculus is not identified. Spleen: Negative. Adrenals: Negative. Pancreas: Negative. Kidneys ureters or bladder: Negative. Genitalia: Small partially calcified mass projects along the posterior wall the uterus which may represent a fibroid GI: There post surgical changes from a gastric bypass. Gastrostomy tube is in place. Surgical anastomoses also noted of several small bowel loops in the left-sided abdomen with mildly patulous of small bowel loops adjacent to the anastomoses that appear similar to the prior study Vessels/spaces/nodes: There is a small amount of free fluid in the abdomen and pelvis that is relatively unchanged Bones/soft tissues: There is mild anasarca Additional findings: None pertinent. IMPRESSION: There postsurgical changes from a cholecystectomy. The common bile duct appears dilated up to 1 cm which is increased when compared to the prior study. The duct does taper smoothly to the pancreatic head. An obstructing calculus is not identified however patient does have findings suggesting biliary obstruction and MRCP is recommended Diffuse hepatic steatosis Postsurgical changes of the stomach and small bowel as described above Small amount of free fluid in the abdomen and pelvis has remained relatively unchanged Mild anasarca Report Dictated By: Cha Madden MD at 12/21/2018 2:07 PM Report E-Signed By: Cha Madden MD at 12/21/2018 2:16 PM LINN:[place] ED Course/Re-evaluation Clinical Indication for ER IV: Hydration, IV Access ED Course The patient was admitted to room. A history of physical were obtained. Differential diagnoses were considered. An IV was started. A CBC, CMP and UA were collected. A 1 L normal saline bolus was given. The patient was given 1 g of IV Tylenol, patient was also given 25 mg IV Phenergan, 4 mg IV morphine, patient continued to have abdominal pain, I did consult with Dr. Townsend as noted below, she was given a GI cocktail, the belladonna did seem to help. She was also given [address] A [address] of the abdomen and pelvis showing no acute changes however there concerned of mild dilatation of the common bile duct, no obvious stone, recommendation of MRCP. Dr. Townsend was able to review the imaging results as well. The patient does have a follow-up appointments MondayDecember 25 with her new bariatric surgeon in [place], . I reviewed the results with the patient, I did tell her that her laboratory studies have improved, no other concerning findings on the CT. I did tell her that I would go ahead and start her on Carafate as well as Protonix in the off chance that she does have an ulceration developing, as discussed with Dr. Townsend. I did offer the patient Phenergan suppositories, ODT Zofran, patient states she has those medications. The patient was encouraged to continue taking the Bentyl that was prescribed to her in addition to the new medications that I have prescribed. Patient had no other questions or concerns at this time and was discharged home. Patient was agreeable with this plan of care. I did not give the patient any additional narcotic prescriptions as she has had a total of 42 oxycodone was prescribed on 12/18/2018, 42 clonazepam filled on 12/14/2018, 5 hydrocodone on 12/14/2018, 3 hydrocodone filled on 12/13/2018, 6 one a code on filled on 11/17/2018, 42 hydrocodone filled on 11/01/2019. These were from the [place] [facility] on the [place] [facility] she had 18 oxycodone filled on 12/15/2018, she also received 500 mL of oxycodone liquid on 12/07/2018, 90 of the oxycodone 10/325 on 11/29/2018, 180 oxycodone 20 mg tablets filled on 11/29/2018, 90 clonazepam 0.5 filled on 11/29/2018 60 oxycodone 10/325 filled on 10/26/2018. 12/21/2018 2:37:02 pm I did speak with Dr. Townsend. Decision to Disposition Date: Dec 21, 2018 Decision to Disposition Time: 14:46 Depart Departure Latest Vital Signs Vital Signs Date Time Temp Pulse Resp B/P (MAP) Pulse Ox O2 Delivery O2 Flow Rate FiO2 12/21/18 14:40 106 95 12/21/18 12:23 122/100 (107) 12/21/18 12:22 98.5 20 Room Air Impression: Primary Impression: Abdominal pain Condition: Improved Disposition: HOME OR SELF-CARE Referrals: PAM BLACKMON MD (PCP) New Scripts Sucralfate (CARAFATE) 1 Gm Tablet 1 GM PO QID, #60 TAB 0 Refills Take before meals and at bedtime. Crush the tablet and mix with water before taking. Prov: ADELAIDE DE LA PAZ 12/21/18 Pantoprazole Sodium (PROTONIX) 40 Mg Granpkt.dr 40 MG PO QDAY for 14 Days, #14 PACK 0 Refills Prov: ADELAIDE DE LA PAZ 12/21/18 Patient Instructions: Abdominal Pain (ED) Additional Instructions: Your laboratory studies have improved from [address] scan has no significant changes other than possible spasm of the bile duct. Your Surgeon may want to order an MRCP to look at the bile duct more closely. It is critical that you follow up with Dr. Armas at [facility] as scheduled mondaydecember 25. Please take either the ODT zofran, oral phenergan or phenergan suppositories for nausea and vomiting. Take the Oxycodone that Dr. Chao prescribed as directed. Take the protonix and Carafate as prescribed. Clear liquid diet for the next 24-48 hours. Follow-up with your primary care provider as scheduled. Return to the ER for any other concerns or worsening symptoms. Problem Qualifiers Primary Impression: Abdominal pain Abdominal location: generalized Qualified Codes: R10.84 - Generalized abdominal pain ADELAIDE DE LA PAZP- Dec 21, 2018 12:24
[2018-12-21 12:52] LABS: PLATELET COUNT, AUTOMATED 476 K/uL (150-450)
--- NOTE | 2018-12-21 14:22 | RADIOLOGY IMAGING REPORT ---
FACILITY: [facility] [place] PATIENT NAME: Arelis Ryan : 1985 MR: [id number] V: [id number] EXAM DATE: ORDERING PHYSICIAN: ADELAIDE DE LA PAZ TECHNOLOGIST: Location: [facility] [place] Patient: Arelis Ryan : 1985 Visit/Account:[id number] Date of Sevice: 12/21/2018 CT ABDOMEN PELVIS W/ CON HISTORY: Increased abdomen pain TECHNIQUE: Following administration of IV contrast contiguous axial images acquired through the abdom en/pelvis. Coronal and sagittal reformatting also performed.Dose Lowering Technique One of the following dose optimization techniques was utilized in the performance of this exam: Autom ated exposure control; adjustment of the mA and/or kV according to the patient's size; or use of an i terative reconstruction technique. Specific details can be referenced in the facility's radiology C T exam operational policy. CONTRAST: 75 mL Isovue-370 COMPARISON: December 18, 2018 FINDINGS: Visualized lung bases: Negative. Hepatobiliary: There is diffuse hepatic steatosis and postsurgical changes from a cholecystectomy. Common bile duct appears dilated up to 1 cm which has increased when compared to the prior study. Th e duct appears to taper smoothly at the pancreatic head. An obstructing calculus is not identified. Spleen: Negative. Adrenals: Negative. Pancreas: Negative. Kidneys ureters or bladder: Negative. Genitalia: Small partially calcified mass projects along the posterior wall the uterus which may rep resent a fibroid GI: There post surgical changes from a gastric bypass. Gastrostomy tube is in place. Surgical anas tomoses also noted of several small bowel loops in the left-sided abdomen with mildly patulous of sma ll bowel loops adjacent to the anastomoses that appear similar to the prior study Vessels/spaces/nodes: There is a small amount of free fluid in the abdomen and pelvis that is relati vely unchanged Bones/soft tissues: There is mild anasarca Additional findings: None pertinent. IMPRESSION: There postsurgical changes from a cholecystectomy. The common bile duct appears dilated up to 1 cm w hich is increased when compared to the prior study. The duct does taper smoothly to the pancreatic h ead. An obstructing calculus is not identified however patient does have findings suggesting biliary obstruction and MRCP is recommended Diffuse hepatic steatosis Postsurgical changes of the stomach and small bowel as described above Small amount of free fluid in the abdomen and pelvis has remained relatively unchanged Mild anasarca Report Dictated By: Cha Madden MD at 12/21/2018 2:07 PM Report E-Signed By: Cha Madden MD at 12/21/2018 2:16 PM LINN:AMICATARINOVJen
== END ==
LOC: ER 13:02
DX: R10.84 Generalized abdominal pain (principal)
CPT/HCPCS: 74177; 81001; 83690; 85025; 96374; 96375; 99284; C9113; J0131; J2270; J2405; J2550; J7030; 82040; 82247; 82310; 82374; 82435; 82565; 82947; 84075; 84132; 84155; 84295; 84450; 84460; 84520; A4353; Q9967

== ENCOUNTER → 2019-01-08 | Outpatient (CLI) | payer MEDICAID ==
[~2019-01-08] MED LIST changes: -ACETAMINOPHEN(*)1000 MG/100 ML 100 ML IVPB ONE; -ATRO/SCOPOL/HYOSCY/PB 5 ML ELX PO ONE; +CLON0.5T66 PO; -LIDOCAINE 2% VISC SLN 15ML UDC PO ONE; -MAG HYD/AL HYD/SIMETH 30ML UDC PO ONE; -MORPHINE 10 MG/ML SYR IVP ONE; -MORPHINE 4 MG/ML SDV IVP ONE; -NS(*) 0.9% 1000 ML BAG 1,000 ML IV ONE; -ONDANSETRON 4 MG/2 ML VIAL IVP ONE; -PANTOPRAZOLE SOD 40 MG IV VIAL IVP ONE; -PROMETHAZINE 25 MG/ML 1 ML AMP IVP ONE
== END ==
LOC: LAB 16:06
PROVIDERS: ATTEND Anesthesiology Pain Medicine
DX: J45.998 Other asthma (principal); D64.9 Anemia, unspecified; G89.4 Chronic pain syndrome; M25.551 Pain in right hip; M25.552 Pain in left hip; M25.561 Pain in right knee; M25.562 Pain in left knee; Z87.891 Personal history of nicotine dependence; F41.9 Anxiety disorder, unspecified
CPT/HCPCS: 36415; 82040; 82247; 82310; 82374; 82435; 82565; 82947; 84075; 84132; 84155; 84295; 84450; 84460; 84520

== ENCOUNTER 2019-01-10 09:55 | Emergency (ER) | payer MEDICAID ==
[~2019-01-10 09:55] MED LIST changes: -CLON0.5T66 PO
[2019-01-10] MEDS ORDERED: CLON0.5T66 PO (10:18)
--- NOTE | 2019-01-10 10:42 | ER Report ---
History and Physical Time Seen By MD: 10:41 Hx. of Stated Complaint: PT STATES HAS BEEN ILL FOR 2 DAYS, WITH N/V/D . hAS NOT URINATED FOR 2 DAYS. HAD BOWEL RESECTION IN SEP, AND 2015. THIS PAIN IS DIFFERENT HPI/ROS CHIEF COMPLAINT: Abdominal pain HISTORY OF PRESENT ILLNESS: The patient is a 33-year-old female with complex abdominal medical history including prior intussusceptions and gastric bypass currently followed by Dr. Townsend. She states she's had abdominal pain over the last 48 hours that is "different from her prior episodes of abdominal pain". She reports nausea and vomiting but denies fevers or chills. Patient has a history of concern for opiate dependence and addiction. Patient was recently seen in the emergency department in early December and icing the patient previously approximately one month ago for similar complaints. See my X are listed below for hospital disposition and course. 12/18/2018 11:19:48 am is difficult and complex patient in that she has had 2 intussusceptions in her lifetime. One that was approximately 2 years ago corrected surgically and after that did well until this past September when she had a 2nd intussusception that was treated at that [facility] and since that time she's had persistent right upper quadrant abdominal pain and dry heaving. She has had at least 2 visits to this emergency department since October most recent was exactly one month ago in November 17. She had a similar presentation at that time. CT scan and blood work were essentially unremarkable for acute pathology. Patient and are feeling frustrated that the patient is not being "taken seriously". She is in the process of care from her current bariatric surgeon and [facility]. He did see Dr. Townsend as an outpatient for request removal of feeding tube. Dr. Townsend and did not remove the feeding tube at that time. In encouraged follow-up with her current surgeon and also stated in his note that if she was unhappy with her current surgeon that he would assist her in finding a new one. The patient has had 2 CT scans since the middle of October 2018 most recent was November 17. I'm concerned about performing subsequent CTA given the high dose of radiation the patient is already received. I'm considering consult and Dr. Townsend to come to the ER for evaluation. And to ask him what imaging studies if any he would eventually recommended. Also had discussion about opiate-induced hypalgesia with this patient. Because patient states she does require heroic doses of narcotic pain medication and seems to have a decreased pain threshold consider trying ketamine for pain and this point. 12/18/2018 12:12:09 pm blood work is unremarkable for acute findings. Speak with Dr. Townsend who is agreed to come down and perform a consult on the patient. He did actually recommend CT scan given her history of bariatric surgery. Patient seems much improved after IV ketamine. We have placed the patient on a ketamine drip and she seems to be doing well in terms of pain. We're awaiting CT scan and evaluation from Dr. Townsend 12/18/2018 2:12:[address] Townsend from general surgery did come down and evaluate the patient personally and had a discussion with the patient. He had approximately a 10 minute discussion about the patient between us. He agrees this patient is complex him a pain management standpoint the patient does clearly have surgical issues in the past. Dr. Townsend pain both to myself as well as the patient that if anything surgical would need to be done it would need to be done by a bariatric surgeon is that his protocol. Patient does have an appointment on December 25 to switch her bariatric surgeon to [facility]. Because of normal blood work and no acute findings on CT scan I find no advantage to admitting the patient here because we would not be either medically or surgically treating her and the risk of hospitalization and development of nosocomial infection is certainly something to consider. Plan at this time will be to discharge the patient home with for pain medications again to discuss this with Dr. Townsend and he does feel that it is appropriate to dispense medications for pain we'll prescribe him oral oxycodone in a 7 day supply along with oral Bentyl and oral Phenergan. 01/10/2019 2:20:58 pm I concern with this patient is that she has opiate- induced hyperalgesia. She's had multiple workups for abdominal pain which include CT scans and blood work which are unremarkable. However discussing the case with Dr. Townsend patient a since she has had prior gastric bypass. She presents to the emergency department for abdominal pain she requires a CT scan. I did discuss with the patient that we will try to address her pain but we will be avoiding any type of narcotic or opiate pain medications. Allergies: Coded Allergies: ketorolac (Verified Allergy, Intermediate, 2/28/19) tramadol (Verified Allergy, Unknown, 01/10/19) SEIZURES Uncoded Allergies: HAYFEVER CATS (Allergy, Mild, SINUS CONGESTION, 04/17/08) Home Meds Active Scripts Sucralfate (CARAFATE) 1 Gm Tablet, 1 GM PO QID, #60 TAB 0 Refills Take before meals and at bedtime. Crush the tablet and mix with water before taking. Prov:ADELAIDE DE LA PAZ [facility] 12/21/18 Pantoprazole Sodium (PROTONIX) 40 Mg Granpkt.dr, 40 MG PO QDAY for 14 Days, #14 PACK 0 Refills Prov:ADELAIDE DE LA PAZ [employer]-BC 12/21/18 Dicyclomine Hcl (DICYCLOMINE HCL) 20 Mg Tablet, 20 MG PO QID for abdominal cramps, #20 TAB 0 Refills Prov:DAI SUBRAMANIAN MD 12/18/18 Promethazine Hcl (PROMETHAZINE HCL) 25 Mg Tablet, 25 MG PO Q8H PRN for NAUSEA/VOMITING, #20 TAB 0 Refills Prov:DAI SUBRAMANIAN MD 12/18/18 Oxycodone Hcl/Acetaminophen (PERCOCET 5-325 MG TABLET) 1 Each Tablet, 1 EACH PO Q4H for PAIN for 7 Days, #42 TAB 0 Refills Prov:DAI SUBRAMANIAN MD 12/18/18 Reported Medications Clonazepam (KLONOPIN) 0.5 Mg Tablet, 0.5 MG PO TID, #10 TAB 01/10/19 Mirtazapine (MIRTAZAPINE) 15 Mg Tablet, 15 MG PO QHS 12/18/18 Quetiapine Fumarate (QUETIAPINE FUMARATE) 100 Mg Tablet, 50 TAB PO QHS 12/18/18 Lorazepam (LORAZEPAM) 1 Mg Tab 12/18/18 Gabapentin (GABAPENTIN) 600 Mg Tablet 12/18/18 Albuterol Sulfate (PROVENTIL HFA) 6.7 Gm Inh, 1-2 PUFF INH 3-4XD PRN for shortness of breath, INH 02/24/18 Past Medical/Surgical History Patient has a past medical history of seizures, palpitations, hypertension, asthma, gastric bypass, cholecystitis, right arm fracture, anxiety. Patient has a surgical history of tonsillectomy, right wrist surgery, bowel surgery, cholecystectomy, appendectomy, gastric bypass. Patient has a family medical history of cancer, stroke, diabetes, psychiatric problems. Hx Smoking: Yes Smoking Status: Current: Every Day Smoker Exposure to Second Hand Smoke?: Yes Hx Substance Use Disorder: Yes (claims no substance use/abuse) Hx Alcohol Use: No (claims no alcohol consumption) Constitutional Vital Sign - Last 24 Hours 01/10/19 01/10/19 01/10/19 01/10/19 10:01 10:11 10:25 10:30 Temp 99.0 Pulse 113 110 Resp 24 B/P (MAP) 121/85 (97) 121/85 117/81 (93) Pulse Ox 96 97 O2 Delivery Room Air 01/10/19 01/10/19 01/10/19 01/10/19 10:55 11:00 11:30 11:35 Pulse 111 99 B/P (MAP) 107/85 (92) 119/73 (88) Pulse Ox 96 95 01/10/19 01/10/19 12:04 12:30 B/P (MAP) 111/86 (94) 96/75 (82) Physical Exam General/Constitutional: Patient is awake, alert, lying in the position moaning about extreme pain. Head: Normocephalic and atraumatic. Eyes: Conjunctival clear. Sclera are clear and anicteric. Oropharyngeal: Mucous membranes are moist. Neck: Supple, no adenopathy. Cardiovascular: Heart is regular rate and rhythm without audible murmurs, rubs or gallops. Pulmonary: Lungs are clear to auscultation bilaterally. There are no wheezes, rales, or rhonchi. Chest rise is symmetrical Abdomen: Soft, patient is tender to the right upper and lower quadrants without appreciable rebound tenderness. She does complain however of diffuse pain with palpation in all quadrants. Extremities: No gross deformities, No peripheral cyanosis. Able to move all 4 extremities. Please note exam is essentially unchanged from documentation of my exam on 12/18/2018. Medical Decision Making Data Points Result Diagram: 01/10/19 1005 01/10/19 1005 Laboratory Hematology Test 01/10/19 10:05 01/10/19 12:05 Red Blood Count 4.71 M/uL (4.17-5.56) Mean Corpuscular Volume 76.8 fL (80.0-96.0) Mean Corpuscular Hemoglobin 24.5 pg (26.0-33.0) Mean Corpuscular Hemoglobin Concent 31.9 g/dL (32.0-36.0) Red Cell Distribution Width 18.8 % (11.5-14.5) Mean Platelet Volume 7.8 fL (7.2-11.1) Neutrophils (%) (Auto) 60.5 % (39.4-72.5) Lymphocytes (%) (Auto) 29.6 % (17.6-49.6) Monocytes (%) (Auto) 8.1 % (4.1-12.4) Eosinophils (%) (Auto) 0.9 % (0.4-6.7) Basophils (%) (Auto) 0.9 % (0.3-1.4) Nucleated RBC Relative Count (auto) 0.0 /100WBC Neutrophils # (Auto) 5.8 K/uL (2.0-7.4) Lymphocytes # (Auto) 2.8 K/uL (1.3-3.6) Monocytes # (Auto) 0.8 K/uL (0.3-1.0) Eosinophils # (Auto) 0.1 K/uL (0.0-0.5) Basophils # (Auto) 0.1 K/uL (0.0-0.1) Nucleated RBC Absolute Count (auto) 0.00 K/uL Peripheral Blood Smear Yes Y/N Prothrombin Time 11.5 seconds (12.0-14.4) Prothromb Time International Ratio 0.84 Activated Partial Thromboplast Time 26 seconds (23-35) Sodium Level 144 mmol/L (137-145) Potassium Level 4.1 mmol/L (3.5-5.0) Chloride Level 108 mmol/L (98-107) Carbon Dioxide Level 24 mmol/L (22-31) Blood Urea Nitrogen 11 mg/dl (7-18) Creatinine 0.50 mg/dl (0.52-1.04) Glomerular Filtration Rate Calc > 60.0 Random Glucose 86 mg/dl (75-110) Calcium Level 9.2 mg/dl (8.4-10.2) Total Bilirubin < 0.1 mg/dl (0.2-1.3) Aspartate Amino Transf (AST/SGOT) 27 U/L (0-35) Alanine Aminotransferase (ALT/SGPT) 34 U/L (0-56) Alkaline Phosphatase 108 U/L (0-126) Total Protein 8.0 g/dl (6.3-8.2) Albumin 4.6 g/dl (3.5-5.0) Amylase Level 81 U/L (0-110) Lipase 247 U/L (23-300) Human Chorionic Gonadotropin, Qual Negative (NEGATIVE) Helicobacter pylori IgG Antibody Negative (NEGATIVE) Urine Color Yellow Urine Clarity Clear Urine pH 7.0 pH (4.8-9.5) Urine Specific Paulina 1.014 Urine Protein Negative mg/dL (NEGATIVE) Urine Glucose (UA) Negative mg/dL (NEGATIVE) Urine Ketones Negative mg/dL (NEGATIVE) Urine Blood Negative (NEGATIVE) Urine Nitrite Negative (NEGATIVE) Urine Bilirubin Negative (NEGATIVE) Urine Urobilinogen Negative mg/dL (0.2-1.9) Urine Leukocyte Esterase Negative (NEGATIVE) Urine RBC 1 /HPF (0-2/HPF) Urine WBC 2 /HPF (0-5/HPF) Urine Squamous Epithelial Cells Moderate /LPF (</=FEW) Urine Bacteria Negative /HPF (NONE-FEW) Urine Mucus Few /HPF (NONE-FEW) Chemistry Test 01/10/19 10:05 01/10/19 12:05 White Blood Count 9.6 k/uL (4.5-11.0) Red Blood Count 4.71 M/uL (4.17-5.56) Hemoglobin 11.6 g/dL (12.0-16.0) Hematocrit 36.2 % (34.0-47.0) Mean Corpuscular Volume 76.8 fL (80.0-96.0) Mean Corpuscular Hemoglobin 24.5 pg (26.0-33.0) Mean Corpuscular Hemoglobin Concent 31.9 g/dL (32.0-36.0) Red Cell Distribution Width 18.8 % (11.5-14.5) Platelet Count 648 K/uL (150-450) Mean Platelet Volume 7.8 fL (7.2-11.1) Neutrophils (%) (Auto) 60.5 % (39.4-72.5) Lymphocytes (%) (Auto) 29.6 % (17.6-49.6) Monocytes (%) (Auto) 8.1 % (4.1-12.4) Eosinophils (%) (Auto) 0.9 % (0.4-6.7) Basophils (%) (Auto) 0.9 % (0.3-1.4) Nucleated RBC Relative Count (auto) 0.0 /100WBC Neutrophils # (Auto) 5.8 K/uL (2.0-7.4) Lymphocytes # (Auto) 2.8 K/uL (1.3-3.6) Monocytes # (Auto) 0.8 K/uL (0.3-1.0) Eosinophils # (Auto) 0.1 K/uL (0.0-0.5) Basophils # (Auto) 0.1 K/uL (0.0-0.1) Nucleated RBC Absolute Count (auto) 0.00 K/uL Peripheral Blood Smear Yes Y/N Prothrombin Time 11.5 seconds (12.0-14.4) Prothromb Time International Ratio 0.84 Activated Partial Thromboplast Time 26 seconds (23-35) Glomerular Filtration Rate Calc > 60.0 Calcium Level 9.2 mg/dl (8.4-10.2) Total Bilirubin < 0.1 mg/dl (0.2-1.3) Aspartate Amino Transf (AST/SGOT) 27 U/L (0-35) Alanine Aminotransferase (ALT/SGPT) 34 U/L (0-56) Alkaline Phosphatase 108 U/L (0-126) Total Protein 8.0 g/dl (6.3-8.2) Albumin 4.6 g/dl (3.5-5.0) Amylase Level 81 U/L (0-110) Lipase 247 U/L (23-300) Human Chorionic Gonadotropin, Qual Negative (NEGATIVE) Helicobacter pylori IgG Antibody Negative (NEGATIVE) Urine Color Yellow Urine Clarity Clear Urine pH 7.0 pH (4.8-9.5) Urine Specific Paulina 1.014 Urine Protein Negative mg/dL (NEGATIVE) Urine Glucose (UA) Negative mg/dL (NEGATIVE) Urine Ketones Negative mg/dL (NEGATIVE) Urine Blood Negative (NEGATIVE) Urine Nitrite Negative (NEGATIVE) Urine Bilirubin Negative (NEGATIVE) Urine Urobilinogen Negative mg/dL (0.2-1.9) Urine Leukocyte Esterase Negative (NEGATIVE) Urine RBC 1 /HPF (0-2/HPF) Urine WBC 2 /HPF (0-5/HPF) Urine Squamous Epithelial Cells Moderate /LPF (</=FEW) Urine Bacteria Negative /HPF (NONE-FEW) Urine Mucus Few /HPF (NONE-FEW) Coagulation Test 01/10/19 10:05 Prothrombin Time 11.5 seconds Prothromb Time International Ratio 0.84 Activated Partial Thromboplast Time 26 seconds Urinalysis Test 01/10/19 12:05 Urine Color Yellow Urine Clarity Clear Urine pH 7.0 pH (4.8-9.5) Urine Specific Paulina 1.014 Urine Protein Negative mg/dL (NEGATIVE) Urine Glucose (UA) Negative mg/dL (NEGATIVE) Urine Ketones Negative mg/dL (NEGATIVE) Urine Blood Negative (NEGATIVE) Urine Nitrite Negative (NEGATIVE) Urine Bilirubin Negative (NEGATIVE) Urine Urobilinogen Negative mg/dL (0.2-1.9) Urine Leukocyte Esterase Negative (NEGATIVE) Urine RBC 1 /HPF (0-2/HPF) Urine WBC 2 /HPF (0-5/HPF) Urine Squamous Epithelial Cells Moderate /LPF (</=FEW) Urine Bacteria Negative /HPF (NONE-FEW) Urine Mucus Few /HPF (NONE-FEW) EKG/Imaging Imaging FACILITY: [facility] [place] PATIENT NAME: Arelis Ryan : 1985 MR: [id number] V: [id number] EXAM DATE: ORDERING PHYSICIAN: DAI SUBRAMANIAN TECHNOLOGIST: Location: [facility] [place] Patient: Arelis Ryan : 1985 Visit/Account:[id number] Date of Sevice: 01/10/2019 ADDENDUM #1 ADDENDUM: Also noted on initial review although not specifically mentioned in my report is that the CBD in this postcholecystectomy patient is more normal caliber currently, decreased in prominence from the prior. There is still no visible choledocholithiasis. Report Dictated By: Lavell Cain MD at 01/10/2019 1:24 PM Report E-Signed By: Lavell Cain MD at 01/10/2019 1:26 PM ORIGINAL REPORT EXAMINATION: CT Abdomen and Pelvis With Contrast 01/10/2019 10:46 AM HISTORY: hx gastric bypass; ab pain TECHNIQUE: Spiral scan was through the abdomen and pelvis during injection of nonionic iodinated intravenous contrast. Contrast: 75 mL of IV Isovue 370. One of the following dose optimization techniques was utilized in the performance of this exam: Automated exposure control; adjustment of the mA and/or kV according to the patient's size; or use of an iterative reconstruction technique. Specific details can be referenced in the facility's radiology CT exam operational policy. COMPARISON STUDIES: 12/21/2018. FINDINGS: Liver / biliary: Prior cholecystectomy. Incidental focal fat or perfusional va riation in the left lobe along the fissure for ligamentum teres. No significant acute finding. Pancreas: negative Spleen: negative Adrenal glands: negative Kidneys / retroperitoneum: negative Pelvic structures: negative Bowel / peritoneum / mesenteries: Status post gastric bypass. There is a gastrostomy tube in the kaibab remnant. No obstruction, leakage, or abscess related to the bypass is evident. There is fecalization in the distal ileum which is nonspecific, without any clear ileocecal area obstructive changes. There is gas and fluid in nondistended small bowel proximal to this. The appendix is not well seen and there are clips adjacent to the cecum, and the appendix is presumably either noninflamed and small or absent. A sending and transverse colon are unremarkable. The descending colon is somewhat thick- walled appearance but is collapsed which probably accounts for that. No ascites or free air. Vessels: Minimal atherosclerosis. Musculoskeletal / Body wall: Body wall edema is significantly improved. Small stable fatty hernia in the midline upper abdomen. Lymph node assessment: negative Lower chest: negative IMPRESSION: 1. Unremarkable appearance of the patient's gastric bypass. 2. There is gas and fluid in small bowel bowel with fecalization in the distal ileum. The appearance is nonspecific but might reflect gastroenteritis. 3. No significant acute finding otherwise. Report Dictated By: Lavell Cain MD at 01/10/2019 12:41 PM Report E-Signed By: Lavell Cain MD at 01/10/2019 1:01 PM WSN:[email or web address] ED Course/Re-evaluation ED Course 01/10/2019 12:36:28 pm patient states she wants to leave prior to results of CT scan. It was explained to patient that we do not have the complete results of her testing and she could have an issue patient still wants to be discharged home. We'll have her sign an AMA form. If it is something turns up on her CT scan we will call her to alert of the results. 01/10/2019 2:24:[address] scan shows no acute abdominal pathology there is some concern of possible mild gastroenteritis; this will require no urgent or acute care as there is no evidence of obstruction or acute surgical emergency. Patient can follow up routinely as an outpatient. Decision to Disposition Date: Jan 10, 2019 Decision to Disposition Time: 12:34 Depart Departure Latest Vital Signs Vital Signs Date Time Temp Pulse Resp B/P (MAP) Pulse Ox O2 Delivery O2 Flow Rate FiO2 01/10/19 12:30 96/75 (82) 01/10/19 11:35 99 95 01/10/19 10:11 99.0 24 Room Air Impression: Primary Impression: Drug-seeking behavior Additional Impressions: Opiate dependence Abdominal pain Condition: Condition Unchanged Disposition: AGAINST MED [facility] Referrals: PAM BLACKMON MD (PCP) Patient Instructions: Chronic Abdominal Pain (GEN), Opioid Dependence (ED) Additional Instructions: Return to the emergency department any time to complete workup. If symptoms worsen or persist any time, you may return to the emergency department or follow-up with your primary care provider Problem Qualifiers Additional Impressions: Opiate dependence Substance use status: with other opioid-induced disorder Qualified Codes: F11.288 - Opioid dependence with other opioid-induced disorder Abdominal pain Abdominal location: generalized Qualified Codes: R10.84 - Generalized abdominal pain DAI SUBRAMANIAN MD Jan 10, 2019 10:42
[2019-01-10] MEDS ORDERED: NS(*) 0.9% 1000 ML BAG 1,000 ML IV ONE (10:46)
[2019-01-10] MEDS ORDERED: diphenhydrAMINE 50 MG/ML VIAL IVP ONE (10:50)
[2019-01-10] MEDS ORDERED: LORazepam 2 MG/ML VIAL IVP ONE ×2 (10:50→11:45)
[2019-01-10] MEDS ORDERED: HALOPERIDOL LACT 5 MG/ML VIAL IM ONE (10:50)
[2019-01-10 10:55] LABS: PLATELET COUNT, AUTOMATED 648 K/uL (150-450)
[2019-01-10 11:17] LABS: INR 0.84
[2019-01-10 12:30] VITALS: BP 96/75
--- NOTE | 2019-01-10 12:43 | EKG ---
FACILITY: [facility] - [place] PATIENT NAME: FAY BAXTER : [id number] MR: [id number] V: [id number] EXAM DATE: ORDERING PHYSICIAN: DAI SUBRAMANIAN TECHNOLOGIST: CHELITA Barillas Reason : GI PROBLEM Blood Pressure : / mmHG Vent. Rate : 098 BPM Atrial Rate : 098 BPM P-R Int : 120 ms QRS Dur : 076 ms QT Int : 386 ms P-R-T Axes : 057 059 040 degrees QTc Int : 492 ms Poor data quality, interpretation may be adversely affected Normal sinus rhythm Prolonged QT Abnormal ECG When compared with ECG of 23-FEB-2018 23:07, T wave inversion no longer evident in Anterior leads Confirmed by TEE NOBLE ([id number]) on 01/10/2019 1:03:43 PM Referred By: Confirmed By:TEE NOBLE
--- NOTE | 2019-01-10 13:06 | RADIOLOGY IMAGING REPORT ---
FACILITY: [facility] - [place] PATIENT NAME: Areils Ryan : 1985 MR: [id number] V: [id number] EXAM DATE: ORDERING PHYSICIAN: DAI SUBRAMANIAN TECHNOLOGIST: Location: [facility] Patient: Arelis Ryan : 1985 Visit/Account:[id number] Date of Sevice: 01/10/2019 ADDENDUM #1 ADDENDUM: Also noted on initial review although not specifically mentioned in my report is that the CBD in this postcholecystectomy patient is more normal caliber currently, decreased in prominence from the prior . There is still no visible choledocholithiasis. Report Dictated By: Lavell Cain MD at 01/10/2019 1:24 PM Report E-Signed By: Lavell Cain MD at 01/10/2019 1:26 PM ORIGINAL REPORT EXAMINATION: CT Abdomen and Pelvis With Contrast 01/10/2019 10:46 AM HISTORY: hx gastric bypass; ab pain TECHNIQUE: Spiral scan was through the abdomen and pelvis during injection of nonionic iodinated in travenous contrast. Contrast: 75 mL of IV Isovue 370. One of the following dose optimization techniques was utilized in the performance of this exam: Autom ated exposure control; adjustment of the mA and/or kV according to the patient's size; or use of an i terative reconstruction technique. Specific details can be referenced in the facility's radiology C T exam operational policy. COMPARISON STUDIES: 12/21/2018. FINDINGS: Liver / biliary: Prior cholecystectomy. Incidental focal fat or perfusional variation in the left lo be along the fissure for ligamentum teres. No significant acute finding. Pancreas: negative Spleen: negative Adrenal glands: negative Kidneys / retroperitoneum: negative Pelvic structures: negative Bowel / peritoneum / mesenteries: Status post gastric bypass. There is a gastrostomy tube in the sarah mary remnant. No obstruction, leakage, or abscess related to the bypass is evident. There is fecaliz ation in the distal ileum which is nonspecific, without any clear ileocecal area obstructive changes. There is gas and fluid in nondistended small bowel proximal to this. The appendix is not well seen and there are clips adjacent to the cecum, and the appendix is presumably either noninflamed and sma ll or absent. A sending and transverse colon are unremarkable. The descending colon is somewhat thi ck-walled appearance but is collapsed which probably accounts for that. No ascites or free air. Vessels: Minimal atherosclerosis. Musculoskeletal / Body wall: Body wall edema is significantly improved. Small stable fatty hernia in the midline upper abdomen. Lymph node assessment: negative Lower chest: negative IMPRESSION: 1. Unremarkable appearance of the patient's gastric bypass. 2. There is gas and fluid in small bowel bowel with fecalization in the distal ileum. The appearanc e is nonspecific but might reflect gastroenteritis. 3. No significant acute finding otherwise. Report Dictated By: Lavell Cain MD at 01/10/2019 12:41 PM Report E-Signed By: Lavell Cain MD at 01/10/2019 1:01 PM WSN:[email or web address]
== END 2019-01-10 12:48 | disposition left against medical advice (07) ==
LOC: ER 10:35
DX: F11.288 Opioid dependence with other opioid-induced disorder (principal); R10.84 Generalized abdominal pain; Z76.5 Malingerer [conscious simulation]
CPT/HCPCS: 74177; 81001; 82150; 83690; 84703; 85025; 85610; 85730; 86677; 93005; 96361; 96372; 96374; 96375; 99284; J1200; J1630; J2060; J7030; 82040; 82247; 82310; 82374; 82435; 82565; 82947; 84075; 84132; 84155; 84295; 84450; 84460; 84520

== ENCOUNTER 2019-01-13 19:50 | Inpatient (IN) | payer MEDICAID ==
[~2019-01-13] VITALS: Ht 160 cm; Wt 49.0 kg
[2019-01-13] MEDS ORDERED: NS(*) 0.9% 1000 ML BAG 1,000 ML IV ONE (19:52)
--- NOTE | 2019-01-13 19:52 | ER Report ---
History and Physical Time Seen By MD: 19:52 HPI/ROS CHIEF COMPLAINT: Altered mental status,? Overdose HISTORY OF PRESENT ILLNESS: 35-year-old female brought in by EMS after her called patient's been altered for 2 days with heavily slurred speech and being very lethargic. Night. She vomited which prompted her to call 911. Patient has a history of overdose in February 2018 on opiates. Patient just filled a prescription of gabapentin on 01/11/19 and Phenergan. There are significant quantities of pills missing. Potentially an overdose of 180 gabapentin 300 mg and Phenergan 25 mg potentially 30 tablets, which is empty, but there is another bottle of 30, Phenergan tablets, but the bottle is labeled. Patient's vital signs are stable except for moderate tachycardia. She is very lethargic but responds to stimulus. Patient's unable to rack very well. Report from patient's fianc that around 1400. She vomited today around 1700. She fell around 1930. She had a seizure lasting 8 minutes and turned blue. Patient's fianc admits that she is been doctor shopping in [place] receiving numerous prescriptions from multiple providers and using 3 different pharmacies. If he review the note from Dr. Chao from several weeks ago. He documents her numerous narcotic prescriptions from numerous pharmacies. REVIEW OF SYSTEMS: Respiratory: No cough, no dyspnea. Cardiovascular: No chest pain, no palpitations. Gastrointestinal: No vomiting, no abdominal pain. Musculoskeletal: No back pain. Allergies: Coded Allergies: ketorolac (Verified Allergy, Intermediate, 01/13/19) tramadol (Verified Allergy, Unknown, 01/13/19) SEIZURES Uncoded Allergies: HAYFEVER CATS (Allergy, Mild, SINUS CONGESTION, 04/17/08) Home Meds Active Scripts Sucralfate (CARAFATE) 1 Gm Tablet, 1 GM PO QID, #60 TAB 0 Refills Take before meals and at bedtime. Crush the tablet and mix with water before taking. Prov:ADELAIDE DE LA PAZ-BC 12/21/18 Pantoprazole Sodium (PROTONIX) 40 Mg Granpkt.dr, 40 MG PO QDAY for 14 Days, #14 PACK 0 Refills Prov:ADELAIDE DE LA PAZ-BC 12/21/18 Dicyclomine Hcl (DICYCLOMINE HCL) 20 Mg Tablet, 20 MG PO QID for abdominal cramps, #20 TAB 0 Refills Prov:DAI CHAO MD 12/18/18 Promethazine Hcl (PROMETHAZINE HCL) 25 Mg Tablet, 25 MG PO Q8H PRN for NAUSEA/ VOMITING, #20 TAB 0 Refills Prov:DAI CHAO MD 12/18/18 Oxycodone Hcl/Acetaminophen (PERCOCET 5-325 MG TABLET) 1 Each Tablet, 1 EACH PO Q4H for PAIN for 7 Days, #42 TAB 0 Refills Prov:DAI CHAO MD 12/18/18 Reported Medications Clonazepam (KLONOPIN) 0.5 Mg Tablet, 0.5 MG PO TID, #10 TAB 01/10/19 Mirtazapine (MIRTAZAPINE) 15 Mg Tablet, 15 MG PO QHS 12/18/18 Quetiapine Fumarate (QUETIAPINE FUMARATE) 100 Mg Tablet, 50 TAB PO QHS 12/18/18 Lorazepam (LORAZEPAM) 1 Mg Tab 12/18/18 Gabapentin (GABAPENTIN) 600 Mg Tablet 12/18/18 Albuterol Sulfate (PROVENTIL HFA) 6.7 Gm Inh, 1-2 PUFF INH 3-4XD PRN for shortness of breath, INH 02/24/18 Past Medical/Surgical History Patient has a past medical history of seizures, palpitations, hypertension, asthma, gastric bypass, cholecystitis, right arm fracture, anxiety. Patient has a surgical history of tonsillectomy, right wrist surgery, bowel surgery, cholecystectomy, appendectomy, gastric bypass. Patient has a family medical history of cancer, stroke, diabetes, psychiatric problems. Reviewed Nurses Notes: Yes Old Medical Records Reviewed: Yes Hx Smoking: Yes Smoking Status: Current: Every Day Smoker Exposure to Second Hand Smoke?: Yes Hx Substance Use Disorder: Yes (claims no substance use/abuse) Hx Alcohol Use: No (claims no alcohol consumption) Constitutional Vital Sign - Last 24 Hours 01/13/19 01/13/19 01/13/19 01/13/19 19:50 19:52 20:00 20:10 Temp 98.9 Pulse ??? 124 Resp 33 14 B/P (MAP) 112/62 (79) 112/62 117/65 (82) ???/??? (1665) Pulse Ox 94 O2 Delivery Room Air 01/13/19 01/13/19 01/13/19 01/13/19 20:20 20:41 20:45 20:50 Pulse 125 ??? Resp 14 B/P (MAP) ???/??? (1665) 128/65 (86) ???/??? (1665) Pulse Ox 94 01/13/19 01/13/19 01/13/19 01/13/19 21:15 21:20 21:30 21:45 Pulse 124 B/P (MAP) 123/71 (88) 118/78 (91) 117/75 (89) Pulse Ox 96 01/13/19 01/13/19 21:50 22:00 Pulse 118 B/P (MAP) 118/71 (87) Pulse Ox 97 Physical Exam Vital signs stable General Appearance: The patient is alert, has no immediate need for airway protection and no current signs of toxicity. Grossly lethargic and slow to respond. She does answer a few questions properly, but a lot of answers are j ust mumbling. HEENT: Pupils equal and round no injection. 4 mm, slowly reactive, poor tracking Respiratory: Chest is non tender, lungs are clear to auscultation. No Rales or rhonchi Cardiac: regular rate and rhythm Gastrointestinal: Abdomen is soft and non tender, no masses, bowel sounds normal. Musculoskeletal: Neck: Neck is supple and non tender. Extremities have full range of motion and are non tender. Skin: No rashes or lesions. Neuro: Alert, but very slow to respond. Alert and oriented 1. When of extremities 4. DIFFERENTIAL DIAGNOSIS: After history and physical exam differential diagnosis was considered for altered mental status including but not limited to hypoglycemia, infectious process, electrolyte abnormality, head injury and intoxicants. Medical Decision Making Data Points Result Diagram: 01/13/19 0000 01/13/19 0000 Laboratory Hematology Test 01/13/19 00:00 01/13/19 20:35 Red Blood Count 4.23 M/uL (4.17-5.56) Mean Corpuscular Volume 78.4 fL (80.0-96.0) Mean Corpuscular Hemoglobin 24.2 pg (26.0-33.0) Mean Corpuscular Hemoglobin Concent 30.9 g/dL (32.0-36.0) Red Cell Distribution Width 18.7 % (11.5-14.5) Mean Platelet Volume 7.6 fL (7.2-11.1) Neutrophils (%) (Auto) 69.0 % (39.4-72.5) Lymphocytes (%) (Auto) 27.1 % (17.6-49.6) Monocytes (%) (Auto) 3.4 % (4.1-12.4) Eosinophils (%) (Auto) 0.1 % (0.4-6.7) Basophils (%) (Auto) 0.4 % (0.3-1.4) Nucleated RBC Relative Count (auto) 0.0 /100WBC Neutrophils # (Auto) 7.8 K/uL (2.0-7.4) Lymphocytes # (Auto) 3.1 K/uL (1.3-3.6) Monocytes # (Auto) 0.4 K/uL (0.3-1.0) Eosinophils # (Auto) 0.0 K/uL (0.0-0.5) Basophils # (Auto) 0.0 K/uL (0.0-0.1) Nucleated RBC Absolute Count (auto) 0.00 K/uL Peripheral Blood Smear Yes Y/N Sodium Level 142 mmol/L (137-145) Potassium Level 4.4 mmol/L (3.5-5.0) Chloride Level 110 mmol/L (98-107) Carbon Dioxide Level 11 mmol/L (22-31) Blood Urea Nitrogen 11 mg/dl (7-18) Creatinine 0.70 mg/dl (0.52-1.04) Glomerular Filtration Rate Calc > 60.0 Random Glucose 120 mg/dl (75-110) Calcium Level 9.4 mg/dl (8.4-10.2) Magnesium Level 2.1 mg/dl (1.7-2.2) Total Bilirubin < 0.1 mg/dl (0.2-1.3) Aspartate Amino Transf (AST/SGOT) 25 U/L (0-35) Alanine Aminotransferase (ALT/SGPT) 20 U/L (0-56) Alkaline Phosphatase 95 U/L (0-126) Total Protein 7.0 g/dl (6.3-8.2) Albumin 4.3 g/dl (3.5-5.0) Serum Alcohol < 10 mg/dl Urine Color Yellow Urine Clarity Clear Urine pH 5.0 pH (4.8-9.5) Urine Specific [place] 1.026 Urine Protein Negative mg/dL (NEGATIVE) Urine Glucose (UA) Negative mg/dL (NEGATIVE) Urine Ketones Trace mg/dL (NEGATIVE) Urine Blood Negative (NEGATIVE) Urine Nitrite Negative (NEGATIVE) Urine Bilirubin Negative (NEGATIVE) Urine Urobilinogen Negative mg/dL (0.2-1.9) Urine Leukocyte Esterase Negative (NEGATIVE) Urine RBC <1 /HPF (0-2/HPF) Urine WBC 3 /HPF (0-5/HPF) Urine Squamous Epithelial Cells Many /LPF (</=FEW) Urine Calcium Oxalate Crystals Few /HPF (NONE) Urine Bacteria Few /HPF (NONE-FEW) Urine Mucus Few /HPF (NONE-FEW) Urine HCG, Qualitative Negative (NEGATIVE) Urine Opiates Screen Negative Urine Barbiturates Screen Positive Ur Tricyclic Antidepressants Screen Negative Urine Phencyclidine Screen Negative Urine Amphetamines Screen Negative Urine Benzodiazepines Screen Negative Urine Cocaine Screen Negative Urine Cannabinoids Screen Negative Chemistry Test 01/13/19 00:00 01/13/19 20:35 White Blood Count 11.3 k/uL (4.5-11.0) Red Blood Count 4.23 M/uL (4.17-5.56) Hemoglobin 10.3 g/dL (12.0-16.0) Hematocrit 33.2 % (34.0-47.0) Mean Corpuscular Volume 78.4 fL (80.0-96.0) Mean Corpuscular Hemoglobin 24.2 pg (26.0-33.0) Mean Corpuscular Hemoglobin Concent 30.9 g/dL (32.0-36.0) Red Cell Distribution Width 18.7 % (11.5-14.5) Platelet Count 640 K/uL (150-450) Mean Platelet Volume 7.6 fL (7.2-11.1) Neutrophils (%) (Auto) 69.0 % (39.4-72.5) Lymphocytes (%) (Auto) 27.1 % (17.6-49.6) Monocytes (%) (Auto) 3.4 % (4.1-12.4) Eosinophils (%) (Auto) 0.1 % (0.4-6.7) Basophils (%) (Auto) 0.4 % (0.3-1.4) Nucleated RBC Relative Count (auto) 0.0 /100WBC Neutrophils # (Auto) 7.8 K/uL (2.0-7.4) Lymphocytes # (Auto) 3.1 K/uL (1.3-3.6) Monocytes # (Auto) 0.4 K/uL (0.3-1.0) Eosinophils # (Auto) 0.0 K/uL (0.0-0.5) Basophils # (Auto) 0.0 K/uL (0.0-0.1) Nucleated RBC Absolute Count (auto) 0.00 K/uL Peripheral Blood Smear Yes Y/N Glomerular Filtration Rate Calc > 60.0 Calcium Level 9.4 mg/dl (8.4-10.2) Magnesium Level 2.1 mg/dl (1.7-2.2) Total Bilirubin < 0.1 mg/dl (0.2-1.3) Aspartate Amino Transf (AST/SGOT) 25 U/L (0-35) Alanine Aminotransferase (ALT/SGPT) 20 U/L (0-56) Alkaline Phosphatase 95 U/L (0-126) Total Protein 7.0 g/dl (6.3-8.2) Albumin 4.3 g/dl (3.5-5.0) Serum Alcohol < 10 mg/dl Urine Color Yellow Urine Clarity Clear Urine pH 5.0 pH (4.8-9.5) Urine Specific [place] 1.026 Urine Protein Negative mg/dL (NEGATIVE) Urine Glucose (UA) Negative mg/dL (NEGATIVE) Urine Ketones Trace mg/dL (NEGATIVE) Urine Blood Negative (NEGATIVE) Urine Nitrite Negative (NEGATIVE) Urine Bilirubin Negative (NEGATIVE) Urine Urobilinogen Negative mg/dL (0.2-1.9) Urine Leukocyte Esterase Negative (NEGATIVE) Urine RBC <1 /HPF (0-2/HPF) Urine WBC 3 /HPF (0-5/HPF) Urine Squamous Epithelial Cells Many /LPF (</=FEW) Urine Calcium Oxalate Crystals Few /HPF (NONE) Urine Bacteria Few /HPF (NONE-FEW) Urine Mucus Few /HPF (NONE-FEW) Urine HCG, Qualitative Negative (NEGATIVE) Urine Opiates Screen Negative Urine Barbiturates Screen Positive Ur Tricyclic Antidepressants Screen Negative Urine Phencyclidine Screen Negative Urine Amphetamines Screen Negative Urine Benzodiazepines Screen Negative Urine Cocaine Screen Negative Urine Cannabinoids Screen Negative Toxicology Test 01/13/19 00:00 01/13/19 20:35 Serum Alcohol < 10 mg/dl Urine Opiates Screen Negative Urine Barbiturates Screen Positive Ur Tricyclic Antidepressants Screen Negative Urine Phencyclidine Screen Negative Urine Amphetamines Screen Negative Urine Benzodiazepines Screen Negative Urine Cocaine Screen Negative Urine Cannabinoids Screen Negative Urinalysis Test 01/13/19 20:35 Urine Color Yellow Urine Clarity Clear Urine pH 5.0 pH (4.8-9.5) Urine Specific [place] 1.026 Urine Protein Negative mg/dL (NEGATIVE) Urine Glucose (UA) Negative mg/dL (NEGATIVE) Urine Ketones Trace mg/dL (NEGATIVE) Urine Blood Negative (NEGATIVE) Urine Nitrite Negative (NEGATIVE) Urine Bilirubin Negative (NEGATIVE) Urine Urobilinogen Negative mg/dL (0.2-1.9) Urine Leukocyte Esterase Negative (NEGATIVE) Urine RBC <1 /HPF (0-2/HPF) Urine WBC 3 /HPF (0-5/HPF) Urine Squamous Epithelial Cells Many /LPF (</=FEW) Urine Calcium Oxalate Crystals Few /HPF (NONE) Urine Bacteria Few /HPF (NONE-FEW) Urine Mucus Few /HPF (NONE-FEW) Urine HCG, Qualitative Negative (NEGATIVE) EKG/Imaging EKG Interpretation 12 lead EK Rhythm: Sinus tachycardia, rate 125 [place]: normal QRS: normal ST segments: normal, diffuse T-wave flattening ED Course/Re-evaluation Clinical Indication for ER IV: Hydration, IV Access ED Course Patient was admitted to an examination room. H&P was done. The differential diagnoses was considered. Patient with altered mental status and slurred speech. Her reasoning is poor and tangential. She may have taken an excessive amount of gabapentin and promethazine., Patient was found wandering from her room. she was found in the bathroom attempting to sit on the wastebasket as the toilet. Poison center was contacted for guidance on her potential gabapentin overdose as well as other medications. Patient was treated with IV fluid hydration. She was closely monitored. Her vital signs remained stable. She required minimal supplemental O2 to maintain her saturations. She was compla ining of nausea and was given Zofran 4 mg. She was also complaining of a headache. She has a history of opiate pain medication abuse. Unfortunately, her tox screen was negative except for barbiturates. Her bicarbonate was down to 11 suggesting acidosis likely secondary to the seizure that she had prior to being brought in. 01/13/2019 9:22:07 pm case discussed with Dr. Pete Swann hospitalist on- call. He will speak with the nursing phlebotomy supervisor to see if we have capacity to take this patient in the ICU for close monitoring. Decision to Disposition Date: Jan 13, 2019 Decision to Disposition Time: 20:50 Critical Care Time I spent a total of 90 minutes of critical care time in obtaining history, performing a physical exam, bedside monitoring of interventions, collecting and interpreting tests and discussion with consultants but not including time spent performing procedures. Depart Departure Latest Vital Signs Vital Signs Date Time Temp Pulse Resp B/P (MAP) Pulse Ox O2 Delivery O2 Flow Rate FiO2 01/13/19 22:00 118/71 (87) 01/13/19 21:50 118 97 01/13/19 20:20 14 01/13/19 19:52 98.9 Room Air Impression: Primary Impression: Gabapentin overdose Additional Impressions: History of drug overdose Seizure History of seizure disorder Condition: Improved Disposition: Admitted from ER Referrals: PAM BLACKMON MD (PCP) Problem Qualifiers Primary Impression: Gabapentin overdose Encounter type: initial encounter Injury intent: undetermined intent Qualified Codes: T42.6X4A - Poisoning by other antiepileptic and sedative- hypnotic drugs, undetermined, initial encounter BIPIN ARITA DO Jan 13, 2019 19:52
[2019-01-13 20:02] LABS: PLATELET COUNT, AUTOMATED 640 K/uL (150-450)
--- NOTE | 2019-01-13 20:42 | EKG ---
[place] [facility] [place] FAY BAXTER : [id number] MR: [id number] V: [id number] EXAM DATE: ORDERING PHYSICIAN: BIPIN ARITA TECHNOLOGIST: TAMI Test Reason : CHEM INJESTION Blood Pressure : / mmHG Vent. Rate : 125 BPM Atrial Rate : 125 BPM P-R Int : 120 ms QRS Dur : 070 ms QT Int : 300 ms P-R-T Axes : 072 066 -03 degrees QTc Int : 433 ms Sinus tachycardia Nonspecific T wave abnormality Abnormal ECG When compared with ECG of 10-JAN-2019 11:00, Nonspecific T wave abnormality, worse in Inferior leads Nonspecific T wave abnormality now evident in Lateral leads Confirmed by CALEB GUERRIER ([id number]) on 01/13/2019 9:24:27 PM Referred By: Confirmed By:CALEB GUERRIER
[2019-01-13] MEDS ORDERED: INFLUENZA VIRUS VAC 0.5ML SYR IM ONLY ONE (22:10)
[2019-01-13] MEDS ORDERED: ONDANSETRON 4 MG/2 ML VIAL IVP PRN (22:10)
[2019-01-13] MEDS ORDERED: NS(*) 0.9% 1000 ML BAG 1,000 ML IV PRN (22:10)
[2019-01-13] MEDS ORDERED: LORazepam 2 MG/ML VIAL IVP PRN (22:10)
[2019-01-13] MEDS ORDERED: ONDANSETRON 4 MG/2 ML VIAL IVP ONE (22:20)
--- NOTE | 2019-01-13 23:01 | History & Physical ---
History of Present Illness History of Present Illness 33yo female with a h/o gastric bypass, small bowel resection for intussusception, g-tube placement for malnutrition, and chronic pain who was brought to the ER for lethargy and a seizure. The history is mostly from the ER provider. Her significant other didn't answer his phone. Apparently, she has been more lethargic for the last 2 days. She filled gabapentin 600mg #120 on 01/03 and now there appear to be a large proportion missing. Her significant other thinks that she took them. The patient said she might have taken 1 or 2 extra because she has had a lot of pain. Today at 1400, she vomited. At 1700, she fell. At 1930, she had a seizure. She was brought to the ER. In the ER, she was very impulsive and confused. She tried using a trash can as a toilet. The patient reports that her biggest concern is that she has had a headache and nausea since 8pm. She doesn't know if she had a seizure today, but reports her last one was a few months ago. She is not on any medication for seizure preve ntion, but take the Gabapentin for pain control. She received prescriptions for Percocet 5/325 #42 on 01/04 and Clonazepam 1mg #42 on 01/09. History Problems: (1) History of drug overdose Status: Resolved (2) Pain, chronic Status: Chronic (3) Depression Status: Chronic (4) Gastric bypass status for obesity Status: Chronic Home Meds Active Scripts Sucralfate (CARAFATE) 1 Gm Tablet, 1 GM PO QID, #60 TAB 0 Refills Take before meals and at bedtime. Crush the tablet and mix with water before taking. Prov:ADELAIDE DE LA PAZ-BC 12/21/18 Pantoprazole Sodium (PROTONIX) 40 Mg Granpto.dr, 40 MG PO QDAY for 14 Days, #14 PACK 0 Refills Prov:ADELAIDE DE LA PAZ-BC 12/21/18 Dicyclomine Hcl (DICYCLOMINE HCL) 20 Mg Tablet, 20 MG PO QID for abdominal cramps, #20 TAB 0 Refills Prov:DAI SUBRAMANIAN MD 12/18/18 Promethazine Hcl (PROMETHAZINE HCL) 25 Mg Tablet, 25 MG PO Q8H PRN for NAUSEA/VOMITING, #20 TAB 0 Refills Prov:DAI SUBRAMANIAN MD 12/18/18 Oxycodone Hcl/Acetaminophen (PERCOCET 5-325 MG TABLET) 1 Each Tablet, 1 EACH PO Q4H for PAIN for 7 Days, #42 TAB 0 Refills Prov:DAI SUBRAMANIAN MD 12/18/18 Reported Medications Clonazepam (KLONOPIN) 0.5 Mg Tablet, 0.5 MG PO TID, #10 TAB 01/10/19 Mirtazapine (MIRTAZAPINE) 15 Mg Tablet, 15 MG PO QHS 12/18/18 Quetiapine Fumarate (QUETIAPINE FUMARATE) 100 Mg Tablet, 50 TAB PO QHS 12/18/18 Lorazepam (LORAZEPAM) 1 Mg Tab 12/18/18 Gabapentin (GABAPENTIN) 600 Mg Tablet 12/18/18 Albuterol Sulfate (PROVENTIL HFA) 6.7 Gm Inh, 1-2 PUFF INH 3-4XD PRN for shortness of breath, INH 02/24/18 Allergies: Coded Allergies: ketorolac (Verified Allergy, Intermediate, 01/13/19) tramadol (Verified Allergy, Unknown, 01/13/19) SEIZURES Uncoded Allergies: HAYFEVER CATS (Allergy, Mild, SINUS CONGESTION, 04/17/08) Patient History: FHx: breast cancer FHx: lung cancer Melanoma Hx Smoking: Yes Smoking Status: Current: Every Day Smoker Exposure to Second Hand Smoke?: Yes Caffeine Intake: Coffee, Soda Caffeine/Cups Per Day: 6-8 Hx Alcohol Use: No (claims no alcohol consumption) Hx Substance Use Disorder: Yes (claims no substance use/abuse) Social Drug Use: Never Social Drugs: Prescription Drugs Review of Systems Other Unable to obtain much history from the patient Exam Vital Signs Vital Signs Date Time Temp Pulse Resp B/P (MAP) Pulse Ox O2 Delivery O2 Flow Rate FiO2 01/13/19 21:45 117/75 (89) 01/13/19 21:20 124 96 01/13/19 20:20 14 01/13/19 19:52 98.9 Room Air General Appearance: Alert, Awake, No Acute Distress Neuro: Other (Knows she is in [place] and in the hospital. She doesn't know the month or year. No focal motor or sensory deficits.) Eyes: PERRLA ENT: Moist Mucous Membranes Cardiovascular: Regular Rate and Rhythm Respiratory: Clear to Auscultation GI: Abd Soft and Non-Tender : No CVA Tenderness Extremities: No Edema Integumentary: No Jaundice, No Cyanosis Medical Decision Making Data Points Result Diagram: 01/13/19 0000 01/13/19 Item Value Date Time Urine Barbiturates Screen Positive 01/13/192034 Urine Opiates Screen Negative 01/13/192034 Urine Benzodiazepines Screen Negative 01/13/192034 Serum Alcohol < 10 mg/dl 01/13/19 Acetaminophen Level < 10 ug/ml 01/13/19 Salicylates Level < 10 mg/L 01/13/19 Urine HCG, Qualitative Negative 01/13/192034 Urine RBC <1 /HPF 01/13/192034 Urine WBC 3 /HPF 01/13/192034 Urine Squamous Epithelial Cells Many /LPF H 01/13/192034 Urine Calcium Oxalate Crystals Few /HPF H 01/13/192034 Urine Bacteria Few /HPF 01/13/192034 Urine Mucus Few /HPF 01/13/192034 Urine Leukocyte Esterase Negative 01/13/192034 Urine Nitrite Negative 01/13/192034 Neutrophils (%) (Auto) 69.0 % 01/13/19 Lymphocytes (%) (Auto) 27.1 % 01/13/19 Monocytes (%) (Auto) 3.4 % L 01/13/19 Eosinophils (%) (Auto) 0.1 % L 01/13/19 Mean Corpuscular Volume 78.4 fL L 01/13/19 Total Bilirubin < 0.1 mg/dl L 01/13/19 Magnesium Level 2.1 mg/dl 01/13/19 Aspartate Amino Transf (AST/SGOT) 25 U/L 01/13/19 0000 Alanine Aminotransferase (ALT/SGPT) 20 U/L 01/13/19 0000 Alkaline Phosphatase 95 U/L 01/13/19 0000 Total Protein 7.0 g/dl 01/13/19 0000 Hemoglobin 11.6 g/dL L 01/10/19 1005 Hemoglobin 10.8 g/dL L 12/18/18 1052 Mean Corpuscular Volume 76.9 fL L 12/18/18 1052 Mean Corpuscular Volume 76.8 fL L 01/10/19 1005 Human Chorionic Gonadotropin, Qual Negative 01/10/19 1005 Hemoglobin 10.3 g/dL L 01/13/19 0000 EKG / Imaging EKG Interpretation Vent. Rate : 125 BPM Atrial Rate : 125 BPM P-R Int : 120 ms QRS Dur : 070 ms QT Int : 300 ms P-R-T Axes : 072 066 -03 degrees QTc Int : 433 ms Sinus tachycardia Nonspecific T wave abnormality Abnormal ECG When compared with ECG of 10-JAN-2019 11:00, Nonspecific T wave abnormality, worse in Inferior leads Nonspecific T wave abnormality now evident in Lateral leads Assessment and Plan Problems: (1) Altered mental status Status: Acute Assessment & Plan: She presented with 2 days of altered mental status and a possibly seizure today. She confused to month, year, and the events of the last couple of days. There appears to be a large number of 600mg Gabapentin missing (she received 120 tablets on 01/03) and her significant other thinks that she took them. The patient has also received prescriptions for Percocet 5/325 #42 on 01/04 and Clonazepam 1mg #42 on 01/09, but the urine drug screen is negative for those medications. Her bicarbonate is 11. She denies suicidal ideation. Will watch in her in the ICU with seizure precautions, check an ABG, and repeat APAP/salicylate levels. (2) Pain, chronic Status: Chronic Assessment & Plan: Looking back at previous ER and IMG provider notes; there has been a significant concern for drug seeking behavior and provider shopping. Looking at the [facility] scheduled drug site shows that she has had many different providers in the last 6 months prescribing scheduled drugs. The providers that have prescribed outside of the [facility] system will receive a copy of this note for their records. (3) Gastric bypass status for obesity Status: Chronic Assessment & Plan: She currently has a G tube to supplement her nutrition. She admits to not being compliant with the supplements. Will not give anything oral or via TF until her mental status clears and her risk of seizure is lower. Copies to: ALISA MCQUEEN MD; TEE KATP; DARRYL IQBALP; ROCIO HSU PA-C; PAPO CADET; TORY MOURA; LINDSEY RANGEL ELECTRICIAN SUPERVISOR-C ; Venous Thromboembolism Antithrombotics Is Pt On Any Antithrombotics?: No Exam Sepsis Risk: No Definite Risk CALEB GUERRIER MD Jan 13, 2019 23:01
[2019-01-13 23:51] VITALS: BP 114/76
[2019-01-14] VITALS (23 sets, daily range): BP systolic 93–119; BP diastolic 53–91; Ht 160 cm; Wt 49.0 kg
[2019-01-14] MEDS: ACETAMINOPHEN 500 MG TAB PO PRN ×2 (00:13→08:14)
[2019-01-14 05:19] LABS: PLATELET COUNT, AUTOMATED 467 K/uL (150-450)
--- NOTE | 2019-01-14 10:38 | Hospitalist Depart ---
Discharge Summary Reason for Hosp/Final Diag: (1) Altered mental status Status: Acute Hospital Course & Plan: She presented with 2 days of altered mental status and a possibly seizure. Her mental status has now cleared. There has been no observed seizure activity. (2) Pain, chronic Status: Chronic Hospital Course & Plan: Looking back at previous ER and IMG provider notes; there has been a significant concern for drug seeking behavior and provider s hopping. Looking at the [facility] scheduled drug site shows that she has had many different providers in the last 6 months prescribing scheduled drugs. The providers that have prescribed outside of the [facility] system will receive a copy of this note for their records. (3) Gastric bypass status for obesity Status: Chronic Hospital Course & Plan: She currently has a G tube to supplement her nutrition. She admits to not being compliant with the supplements. Departure Latest Vital Signs Vital Signs 01/14/19 01/14/19 01/14/19 07:22 09:00 10:28 Temp 99.0 Pulse 105 Resp 14 B/P (MAP) 93/59 (70) Pulse Ox 96 O2 Delivery Room Air Weight (Pounds): 108 Weight (Ounces): 9.0 Result Diagram: 01/14/19 0442 01/14/19 044 Condition: Improved Discharge: Home, Self Care Discharge Instructions Home Meds Active Scripts Sucralfate (CARAFATE) 1 Gm Tablet, 1 GM PO QID, #60 TAB 0 Refills Take before meals and at bedtime. Crush the tablet and mix with water before taking. Prov:ADELAIDE DE LA PAZP-BC 12/21/18 Pantoprazole Sodium (PROTONIX) 40 Mg Granpkt.dr, 40 MG PO QDAY for 14 Days, #14 PACK 0 Refills Prov:ADELAIDE DE LA PAZP-BC 12/21/18 Dicyclomine Hcl (DICYCLOMINE HCL) 20 Mg Tablet, 20 MG PO QID for abdominal cramps, #20 TAB 0 Refills Prov:DAI SUBRAMANIAN MD 12/18/18 Promethazine Hcl (PROMETHAZINE HCL) 25 Mg Tablet, 25 MG PO Q8H PRN for NAUSEA/VO MITING, #20 TAB 0 Refills Prov:DAI SUBRAMANIAN MD 12/18/18 Reported Medications Mirtazapine (MIRTAZAPINE) 15 Mg Tablet, 15 MG PO QHS 12/18/18 Quetiapine Fumarate (QUETIAPINE FUMARATE) 100 Mg Tablet, 50 TAB PO QHS 12/18/18 Lorazepam (LORAZEPAM) 1 Mg Tab 12/18/18 Gabapentin (GABAPENTIN) 600 Mg Tablet 12/18/18 Albuterol Sulfate (PROVENTIL HFA) 6.7 Gm Inh, 1-2 PUFF INH 3-4XD PRN for shortness of breath, INH 02/24/18 Discontinued Reported Medications Clonazepam (KLONOPIN) 0.5 Mg Tablet, 0.5 MG PO TID, #10 TAB 01/10/19 Discontinued Scripts Oxycodone Hcl/Acetaminophen (PERCOCET 5-325 MG TABLET) 1 Each Tablet, 1 EACH PO Q4H for PAIN for 7 Days, #42 TAB 0 Refills Prov:DAI SUBRAMANIAN MD 12/18/18 Diet: Regular Activity: As Tolerated Copies to: PAM BLACKMON MD ; Venous Thromboembolism Antithrombotics Is Pt On Any Antithrombotics?: No TEE NOBLE DO Jan 14, 2019 10:38
--- NOTE | 2019-01-14 15:07 | Medical Nutrition Therapy ---
"Nutrition Anthropometrics Height (Inches): 63.00 Height (Calculated Centimeters: 160.369441 Weight (Pounds): 108 Weight (Calculated Kilograms): 49.243 [place] Nutrition Score: Probably Inadequate [place] Nutrition Risk Score: 16 Dietary Referral Nutrition Risk Factors: Tube Feeding Nutrition Risk Comment: G-Tube with tube feeding for malnutrition Physical Findings Physical Appearance: Skin Appearance Skin Appearance: Edema Edema Location Modifier: Edema Location: Type of Edema: Degree of Edema: Gastrointestinal Symptoms GI Symtoms: Nausea Tube Present: Feeding Bowel Sounds: Recent Bowel Pattern: Stool Characteristics: Nutritional Diagnosis Nutritional Risk Acuity 1: Malnutrition Nutritional Risk Acuity 2: Unintended Wt Loss >5%/mo Nutritional Risk Acuity 3: Substance abuse Past Medical History: Hx of drug overdose, gastric bypass, depression, and chronic pain. Nutritional Acuity: 1-High Nutrition Diagnosis: Inadequate Food Intake Nutrition Etiology: Inability Manage SelfCare, Physiological Causes Nutrition Problem/Etiology/Sym: Inadequate food intake related to physiological causes and inability to manage self-care as evidenced by altered mental status, hx of gastric bypass and self reported non compliance with g tube nutrition support. Energy Requirement: 1777 (MSJ, 1.1 TEF, AF 1.4) Protein Requirement: 49 (1g AA/kg of BW) Fluid Requirement: 1777 (1 ml/kcal) Diet Type: Diet as Tolerated MARY BETH/REG Nutrition Intervention: Cont diet as ordered, Encourage intake, Nutrition support Nutrition Monitoring & Eval RD Patient Assessment Time: [address] Assessment Type: RD Assessment Patient Nutrition Acuity: 1-High Follow Up Date: Jan 17, 2019 Nutritional Comment: 01/14: Pt admitted for altered mental status and seizures. Pt has a hx of drug overdose, gastric bypass, depression, and chronic pain. Pt has a G-tube for nutrition support, but is not always compliant. Pt has decreased creatinine (0.50) and total protein (6) levels. Pt is currently on a MARY BETH diet. Pt has had 10lbs of unspecified weight loss over the past month (Dec 18, 53kg | Jan 14, 48kg). Pt may benefit by resuming tube feeding. -AV SANCHEZ Jan 14, 2019 09:29"
== END 2019-01-14 11:50 | disposition home or self-care (01) | DRG 918 ==
LOC: ER 20:10 → ICU 22:08
PROVIDERS: ADMIT Internal Medicine; ATTEND Internal Medicine
DX: T42.6X4A Poisoning by other antiepileptic and sedative-hypnotic drugs, undetermined, initial encounter (principal); E87.2 Acidosis; G89.29 Other chronic pain; F32.9 Major depressive disorder, single episode, unspecified; Z76.5 Malingerer [conscious simulation]; G40.909 Epilepsy, unspecified, not intractable, without status epilepticus; Z98.84 Bariatric surgery status; Z88.6 Allergy status to analgesic agent; Z88.8 Allergy status to other drugs, medicaments and biological substances
CPT/HCPCS: 36415; 80305; 80320; 80329; 81001; 81025; 82040; 82247; 82310; 82374; 82435; 82565; 82803; 82947; 83735; 84075; 84132; 84155; 84295; 84443; 84450; 84460; 84520; 85025; 93005; 96361; 96374; 99285; 99291; 99292; J2405; J7030

== ENCOUNTER → 2019-01-13 | Outpatient (CLI) | payer MEDICAID ==
[~2019-01-13] MED LIST changes: +CLON0.5T66 PO
[2019-01-14 09:06] VITALS: BMI 19.1
== END ==
LOC: AMB 19:28
PROVIDERS: ATTEND Nurse Practitioner
DX: R53.83 Other fatigue (principal); T50.901A Poisoning by unspecified drugs, medicaments and biological substances, accidental (unintentional), initial encounter
CPT/HCPCS: A0425; A0427

== ENCOUNTER → 2019-02-07 | Outpatient (CLI) | payer MEDICAID ==
[2019-01-14 09:06] VITALS: BMI 19.1
--- NOTE | 2019-02-07 11:29 | RADIOLOGY IMAGING REPORT ---
FACILITY: [facility] PATIENT NAME: Arelis Ryan : 1985 MR: [id number] V: [id number] EXAM DATE: ORDERING PHYSICIAN: TORY MOURA TECHNOLOGIST: Location: [facility] Patient: Arelis Ryan : 1985 Visit/Account:[id number] Date of Sevice: 02/07/2019 SACRUM & COCCYX Indication: Coccyx pain. Comparison: CT abdomen and pelvis dated 01/10/2019. Findings: 2 views of the sacrum and coccyx. No evidence of acute fracture, dislocation, or radiopaque foreign body. Normal mineralization, joint spaces, and alignment. Impression: Negative sacrum and coccyx radiographs. Report Dictated By: Sterling Steen MD at 02/07/2019 11:19 AM Report E-Signed By: Sterling Steen MD at 02/07/2019 11:24 AM [id number]
== END ==
LOC: RAD 10:02
PROVIDERS: ATTEND Nurse Practitioner
DX: M53.3 Sacrococcygeal disorders, not elsewhere classified (principal); L05.91 Pilonidal cyst without abscess
CPT/HCPCS: 72220

== ENCOUNTER → 2019-02-08 | Outpatient (CLI) | payer MEDICAID ==
[2019-01-14 09:06] VITALS: BMI 19.1
--- NOTE | 2019-02-08 12:01 | RADIOLOGY IMAGING REPORT ---
FACILITY: [facility] PATIENT NAME: Arelis Ryan : 1985 MR: [id number] V: [id number] EXAM DATE: ORDERING PHYSICIAN: TORY MOURA TECHNOLOGIST: Location: [facility] [place] Patient: Arelis Ryan : 1985 Visit/Account:[id number] Date of Sevice: 02/08/2019 MR PELVIS W/O CON HISTORY: Sacral pain COMPARISON: None TECHNIQUE: Multiplanar/multisequence was obtained through the pelvis without intravenous contrast. CONTRAST: None FINDINGS: Right hip: Joint space: Normal Bone marrow: Normal Effusion: None Other findings: None significant Left hip: Joint space: Normal Bone marrow: Normal Effusion: None Other findings: None significant Soft tissues: Negative Bony pelvis: Normal Pubic symphysis and SI joints: No bone marrow edema within the sacrum. SI joints are unremarkable. No presacral mass. No evidence of a sinus tract. Myotendinous structures: Normal Intrapelvic and lower abdominal findings: None significant Visualized spine: Normal Other findings: None significant IMPRESSION: 1. Normal examination of the sacrum Report Dictated By: Nik Winslow MD at 02/08/2019 11:28 AM Report E-Signed By: Nik Winslow MD at 02/08/2019 11:56 AM WSN:[id number]
== END ==
LOC: MRI 01:53
PROVIDERS: ATTEND Nurse Practitioner
DX: M53.3 Sacrococcygeal disorders, not elsewhere classified (principal)
CPT/HCPCS: 72195